=== PATIENT | female | born 1935 | race Caucasian/White ===

== ENCOUNTER → 2017-01-18 | Outpatient (CLI) | payer MEDICARE ==
--- NOTE | 2017-01-18 22:58 | PN ---
This patient is 81 years old. She was diagnosed having severe symptomatic obstructive sleep apnea with an AHI of 85.8. The patient suffers from congestive heart failure, hypertension, hyperlipidemia, hypothyroidism and chronic atrial fibrillation. I am seeing her today in followup. She is using her CPAP every night without any major difficulties. Her only problem is some leaks around her Simplus full-face mask. Her leak factor is around 71 liters per minute. Her AHI on treatment is down to 2. Her CPAP use for more than 4 hours is approximately 60% of the time. I noted that the patient has not connected her tubing in a proper fashion, and this tubing extends between the mask and the CPAP machine. Appropriate instructions were given. Furthermore, I educated her on the proper use of the full-face mask. She had some difficulties utilizing the Simplus full-face mask, and this was replaced with an AirFit F10 full-face mask. Clinically she is doing well. She is waking up much more alert and awake during the day. Despite the ongoing leaks, the patient has no major hypersomnia or sleepiness. Her [place] Switch score is 12. BP is 140/89, pulse 100, respirations 18, temperature 97.5. Weight is 197. GENERAL APPEARANCE: Calm, comfortable. HEENT: Short neck. Crowding of posterior pharynx. No goiter or neck masses. LUNGS: Clear to auscultation. HEART: Sounds are regular rate and rhythm. Normal S1, S2. No S3. No S4. No murmurs. ABDOMEN: Soft, nontender. No organomegaly. EXTREMITIES: No edema. No cyanosis or clubbing. IMPRESSION: 1. Symptomatic obstructive sleep apnea with an AHI of 85.8. The patient's treatment seems to be successful, although further adjustments need to be done on her mask to improve further compliance. 2. Congestive heart failure. 3. Hypertension. 4. Hyperlipidemia. 5. Hypothyroidism. 6. Chronic atrial fibrillation. PLAN: 1. Provide the patient an AirFit F10 full-face mask. 2. Educate the patient on the proper use and placement of her mask and proper instillation of the tubing and the connection to the CPAP machine. 3. Her treatment seems to be successful for now. Will continue to follow.
== END | disposition home or self-care (01) ==
LOC: SLEEP 15:21
PROVIDERS: ATTEND Internal Medicine Critical Care Medicine
DX: G47.33 Obstructive sleep apnea (adult) (pediatric) (principal); Z99.89 Dependence on other enabling machines and devices

== ENCOUNTER 2022-03-12 16:25 | Inpatient (IN) | payer MEDICARE ==
[2022-03-12 16:51] LABS: Anisocytosis Slight; Basophils # (A) 0.1 k/uL (0-0.2); Basophils % (A) 0 %; Eosinophils # (A) 0.2 k/uL (0-0.7); Eosinophils % (A) 1 %; HCT 32.5 % (34.0-46.0); HGB 9.9 gm/dL (11.4-16.0); Hypochromasia Marked; Lymphocytes # (A) 0.3 k/uL (1.0-4.8); Lymphocytes % (A) 1 %; MCH 28.2 pg (25.0-35.0); MCHC 30.6 g/dL (31.0-37.0); MCV 92.1 fL (80.0-100.0); Mean Platelet Volume 7.8; Monocytes # (A) 0.5 k/uL (0-1.0); Monocytes % (A) 2 %; Neutrophils # (A) 24.7 k/uL (1.3-7.7); Neutrophils % (A) 95 %; Platelet Count 367 k/uL (150-450); Poikilocytosis Moderate; RBC 3.53 m/uL (3.80-5.40); RDW 18.5 % (11.5-15.5); WBC 25.9 k/uL (3.8-10.6)
[2022-03-12] MEDS ORDERED: SODIUM CHLORIDE 0.9% 500 ML 500 ML IV STA (17:00)
[2022-03-12] MEDS ORDERED: DILTIAZEM 5 MG/ML 5 ML VIAL IVP STA (17:00)
[2022-03-12] MEDS: DILTIAZEM 125 MG in SODIUM CHLORIDE 0.9% 100 ML IV SCH (17:30)
[2022-03-12 17:37] LABS: Albumin 2.3 g/dL (3.5-5.0); Calcium 7.6 mg/dL (8.4-10.2); Magnesium 1.6 mg/dL (1.6-2.3); Potassium 3.8 mmol/L (3.5-5.1); Total Bilirubin 0.8 mg/dL (0.2-1.3); Total Protein 4.9 g/dL (6.3-8.2)
[2022-03-12 17:38] LABS: INR 1.1 (<1.2)
[2022-03-12 17:39] LABS: Appearance,Urine Clear (Clear); Bacteria,Urine Many /hpf; Bilirubin,Urine Negative (Negative); Blood,Urine Negative (Negative); Color,Urine Yellow; Glucose,Urine (UA) Negative (Negative); Hyaline Casts,Urine 1 /lpf (0-2); Ketones,Urine Negative (Negative); Leukocyte Esterase,Urine Moderate (Negative); Nitrite,Urine Negative (Negative); Protein,Urine Negative (Negative); RBC,Urine 1 /hpf (0-5); Specific Gravity,Urine 1.015 (1.001-1.035); Urobilinogen,Urine <2.0 mg/dL (<2.0); WBC,Urine 30 /hpf (0-5)
[2022-03-12 17:39] LABS: Prothrombin Time 11.5 sec (9.0-12.0)
--- NOTE | 2022-03-12 17:46 | XR ---
EXAMINATION TYPE: XR chest 2V DATE OF EXAM: 03/12/2022 COMPARISON: 12/07/2021 HISTORY: Short of breath TECHNIQUE: 2 views FINDINGS: Heart is enlarged. There is patchy pulmonary airspace edema. There are chest leads. There i s mild blunting of the costophrenic angles. IMPRESSION: Patchy pulmonary edema with pleural effusions. This is consistent with combined heart rosalio lure and pneumonia. Right middle lobe consolidation is new compared to the old exam. Heart failure ap pears the same or slightly improved.
--- NOTE | 2022-03-12 18:25 | ED ---
Arrhythmia/Palpitations HPI - General Chief Complaint: Arrhythmia/Palpitations Stated Complaint: AFIB w/ RVR Time Seen by Provider: 03/12/22 16:39 Source: patient, RN notes reviewed Mode of arrival: ambulatory Limitations: no limitations - History of Present Illness Initial Comments: 86-year-old female who presents by EMS with complaints of feeling generally weak and she was noted at her facility be in atrial fibrillation with a rapid ventricular response. She denies any chest pain at this time she is a poor historian. She did recently have a biliary drainage procedure. MD Complaint: rapid heart beat, palpitations - Related Data Home Medications Medication Instructions Recorded Confirmed Apixaban [Eliquis] 5 mg PO BID 12/04/21 03/12/22 Atorvastatin Calcium [Lipitor] 80 mg PO HS 12/04/21 03/12/22 Brimonidine Tartrate [Alphagan P 1 drop BOTH EYES Q12H 12/04/21 03/12/22 0.2% Ophth Soln] Digoxin [Digitek] 125 mcg PO MOWEFR 12/04/21 03/12/22 Levothyroxine Sodium [Synthroid] 150 mcg PO DAILY 12/04/21 03/12/22 Acetaminophen Tab [Tylenol Tab] 500 mg PO Q6HR PRN 03/12/22 03/12/22 Acetaminophen [Tylenol] 650 mg PO Q4H PRN MDD 3 GM 03/12/22 03/12/22 Glucose Gel 40% 1 applicator PO DAILY PRN 03/12/22 03/12/22 Hydrocodone/Acetaminophen 5-300 Mg 1 tab PO Q48H PRN 03/12/22 03/12/22 INSULIN LISPRO (HumaLOG) [humaLOG] See Protocol SQ ACHS 03/12/22 03/12/22 Metoprolol Tartrate [Lopressor] 50 mg PO TID 03/12/22 03/12/22 Midodrine HCl [ProAmatine] 10 mg PO TID PRN 03/12/22 03/12/22 Nephro-Gloria 0.8mg Tab 1 tab PO DAILY 03/12/22 03/12/22 Patiromer Calcium Sorbitex 1 packet PO DAILY 03/12/22 03/12/22 [Veltassa] Torsemide [Demadex] 10 mg PO DAILY 03/12/22 03/12/22 bisacodyL 10 mg RECTAL DAILY PRN 03/12/22 03/12/22 polyethylene glycoL 3350 [Miralax] 17 gm PO DAILY 03/12/22 03/12/22 Allergies Allergy/AdvReac Type Severity Reaction Status Date / Time No Known Allergies Allergy Verified 03/12/22 18:17 Review of Systems ROS Statement: Those systems with pertinent positive or pertinent negative responses have been documented in the HPI. ROS Other: All systems not noted in ROS Statement are negative. Past Medical History Past Medical History: Atrial Fibrillation, Diabetes Mellitus, Hypertension, Pn eumonia, Renal Disease, Thyroid Disorder History of Any Multi-Drug Resistant Organisms: None Reported Past Surgical History: Cholecystectomy Smoking Status: Former smoker Past Alcohol Use History: None Reported Past Drug Use History: None Reported General Exam - General Exam Comments Initial Comments: This is a well-developed well-nourished awake alert female with a poor historian Limitations: no limitations General appearance: alert, in no apparent distress Head exam: Present: atraumatic, normocephalic, normal inspection Eye exam: Present: normal appearance, PERRL, EOMI. Absent: scleral icterus, co njunctival injection, periorbital swelling ENT exam: Present: mucous membranes dry Neck exam: Present: normal inspection, full ROM, other (No surgical rigidity or bruits). Absent: tenderness, meningismus, lymphadenopathy Respiratory exam: Present: rhonchi, decreased breath sounds. Absent: respiratory distress, wheezes, rales, stridor Cardiovascular Exam: Present: tachycardia, irregular rhythm. Absent: systolic murmur, diastolic murmur, rubs, gallop, clicks GI/Abdominal exam: Present: soft, normal bowel sounds, other (Biliary drainage tube in place it does appear to be functional). Absent: distended, tenderness, guarding, rebound, rigid, bruit, pulsatile mass Extremities exam: Present: normal inspection, full ROM, normal capillary refill. Absent: tenderness, pedal edema, joint swelling, calf tenderness Back exam: Present: normal inspection Neurological exam: Present: alert, oriented X3, CN II-XII intact Psychiatric exam: Present: normal affect, normal mood Skin exam: Present: warm, dry, intact, normal color. Absent: rash Course Vital Signs 03/12/22 03/12/22 03/12/22 16:26 18:38 19:53 Temperature 97.5 F L Pulse Rate 138 H 130 H 114 H Respiratory 20 18 26 H Rate Blood Pressure 115/70 102/65 133/66 O2 Sat by Pulse 95 96 97 Oximetry - Reevaluation(s) Reevaluation #1: 03/12/22 20:51 Tariq require IV Lasix also did require increased Cardizem. Medical Decision Making - Medical Decision Making Patient does have evidence of A. fib RVR along with CHF and pneumonia. She does have elevated white blood cell count left shift no fever noted this time. Patient will be admitted. - Lab Data Result diagrams: 03/12/22 16:43 03/12/22 17:14 Lab Results 03/12/22 03/12/22 03/12/22 Range/Units 16:43 16:43 17:14 WBC 25.9 H (3.8-10.6) k/uL RBC 3.53 L (3.80-5.40) m/uL Hgb 9.9 L (11.4-16.0) gm/dL Hct 32.5 L (34.0-46.0) % MCV 92.1 (80.0-100.0) fL MCH 28.2 (25.0-35.0) pg MCHC 30.6 L (31.0-37.0) g/dL RDW 18.5 H (11.5-15.5) % Plt Count 367 (150-450) k/uL MPV 7.8 Neutrophils % 95 % Lymphocytes % 1 % Monocytes % 2 % Eosinophils % 1 % Basophils % 0 % Neutrophils # 24.7 H (1.3-7.7) k/uL Lymphocytes # 0.3 L (1.0-4.8) k/uL Monocytes # 0.5 (0-1.0) k/uL Eosinophils # 0.2 (0-0.7) k/uL Basophils # 0.1 (0-0.2) k/uL Hypochromasia Marked Poikilocytosis Moderate Anisocytosis Slight PT 11.5 (9.0-12.0) sec INR 1.1 (<1.2) APTT 28.0 (22.0-30.0) sec D-Dimer 1.50 H (<0.60) mg/L FEU Sodium 135 L (137-145) mmol/L Potassium 3.8 (3.5-5.1) mmol/L Chloride 101 (98-107) mmol/L Carbon Dioxide 27 (22-30) mmol/L Anion Gap 7 mmol/L BUN 45 H (7-17) mg/dL Creatinine 0.94 (0.52-1.04) mg/dL Est GFR (CKD-EPI)AfAm 64 (>60 ml/min/1.73 sqM) Est GFR (CKD-EPI)NonAf 56 (>60 ml/min/1.73 sqM) Glucose 141 H (74-99) mg/dL Plasma Lactic Acid Joey (0.7-2.0) mmol/L Calcium 7.6 L (8.4-10.2) mg/dL Magnesium 1.6 (1.6-2.3) mg/dL Total Bilirubin 0.8 (0.2-1.3) mg/dL AST 24 (14-36) U/L ALT 12 (4-34) U/L Alkaline Phosphatase 106 (38-126) U/L Troponin I (0.000-0.034) ng/mL NT-Pro-B Natriuret Pep pg/mL Total Protein 4.9 L (6.3-8.2) g/dL Albumin 2.3 L (3.5-5.0) g/dL TSH Cancelled Urine Color Urine Appearance (Clear) Urine pH (5.0-8.0) Ur Specific [place] (1.001-1.035) Urine Protein (Negative) Urine Glucose (UA) (Negative) Urine Ketones (Negative) Urine Blood (Negative) Urine Nitrite (Negative) Urine Bilirubin (Negative) Urine Urobilinogen (<2.0) mg/dL Ur Leukocyte Esterase (Negative) Urine RBC (0-5) /hpf Urine WBC (0-5) /hpf Urine Bacteria (None) /hpf Hyaline Casts (0-2) /lpf 03/12/22 03/12/22 03/12/22 Range/Units 17:14 17:14 17:18 WBC (3.8-10.6) k/uL RBC (3.80-5.40) m/uL Hgb (11.4-16.0) gm/dL Hct (34.0-46.0) % MCV (80.0-100.0) fL MCH (25.0-35.0) pg MCHC (31.0-37.0) g/dL RDW (11.5-15.5) % Plt Count (150-450) k/uL MPV Neutrophils % % Lymphocytes % % Monocytes % % Eosinophils % % Basophils % % Neutrophils # (1.3-7.7) k/uL Lymphocytes # (1.0-4.8) k/uL Monocytes # (0-1.0) k/uL Eosinophils # (0-0.7) k/uL Basophils # (0-0.2) k/uL Hypochromasia Poikilocytosis Anisocytosis PT (9.0-12.0) sec INR (<1.2) APTT (22.0-30.0) sec D-Dimer (<0.60) mg/L FEU Sodium (137-145) mmol/L Potassium (3.5-5.1) mmol/L Chloride (98-107) mmol/L Carbon Dioxide (22-30) mmol/L Anion Gap mmol/L BUN (7-17) mg/dL Creatinine (0.52-1.04) mg/dL Est GFR (CKD-EPI)AfAm (>60 ml/min/1.73 sqM) Est GFR (CKD-EPI)NonAf (>60 ml/min/1.73 sqM) Glucose (74-99) mg/dL Plasma Lactic Acid Joey (0.7-2.0) mmol/L Calcium (8.4-10.2) mg/dL Magnesium (1.6-2.3) mg/dL Total Bilirubin (0.2-1.3) mg/dL AST (14-36) U/L ALT (4-34) U/L Alkaline Phosphatase (38-126) U/L Troponin I 0.064 H* (0.000-0.034) ng/mL NT-Pro-B Natriuret Pep 42691 pg/mL Total Protein (6.3-8.2) g/dL Albumin (3.5-5.0) g/dL TSH Urine Color Yellow Urine Appearance Clear (Clear) Urine pH 5.0 (5.0-8.0) Ur Specific [place] 1.015 (1.001-1.035) Urine Protein Negative (Negative) Urine Glucose (UA) Negative (Negative) Urine Ketones Negative (Negative) Urine Blood Negative (Negative) Urine Nitrite Negative (Negative) Urine Bilirubin Negative (Negative) Urine Urobilinogen <2.0 (<2.0) mg/dL Ur Leukocyte Esterase Moderate H (Negative) Urine RBC 1 (0-5) /hpf Urine WBC 30 H (0-5) /hpf Urine Bacteria Many H (None) /hpf Hyaline Casts 1 (0-2) /lpf 03/12/22 03/12/22 Range/Units 17:26 17:48 WBC (3.8-10.6) k/uL RBC (3.80-5.40) m/uL Hgb (11.4-16.0) gm/dL Hct (34.0-46.0) % MCV (80.0-100.0) fL MCH (25.0-35.0) pg MCHC (31.0-37.0) g/dL RDW (11.5-15.5) % Plt Count (150-450) k/uL MPV Neutrophils % % Lymphocytes % % Monocytes % % Eosinophils % % Basophils % % Neutrophils # (1.3-7.7) k/uL Lymphocytes # (1.0-4.8) k/uL Monocytes # (0-1.0) k/uL Eosinophils # (0-0.7) k/uL Basophils # (0-0.2) k/uL Hypochromasia Poikilocytosis Anisocytosis PT (9.0-12.0) sec INR (<1.2) APTT (22.0-30.0) sec D-Dimer (<0.60) mg/L FEU Sodium (137-145) mmol/L Potassium (3.5-5.1) mmol/L Chloride (98-107) mmol/L Carbon Dioxide (22-30) mmol/L Anion Gap mmol/L BUN (7-17) mg/dL Creatinine (0.52-1.04) mg/dL Est GFR (CKD-EPI)AfAm (>60 ml/min/1.73 sqM) Est GFR (CKD-EPI)NonAf (>60 ml/min/1.73 sqM) Glucose (74-99) mg/dL Plasma Lactic Acid Joey 1.1 (0.7-2.0) mmol/L Calcium (8.4-10.2) mg/dL Magnesium (1.6-2.3) mg/dL Total Bilirubin (0.2-1.3) mg/dL AST (14-36) U/L ALT (4-34) U/L Alkaline Phosphatase (38-126) U/L Troponin I (0.000-0.034) ng/mL NT-Pro-B Natriuret Pep pg/mL Total Protein (6.3-8.2) g/dL Albumin (3.5-5.0) g/dL TSH 1.180 Urine Color Urine Appearance (Clear) Urine pH (5.0-8.0) Ur Specific [place] (1.001-1.035) Urine Protein (Negative) Urine Glucose (UA) (Negative) Urine Ketones (Negative) Urine Blood (Negative) Urine Nitrite (Negative) Urine Bilirubin (Negative) Urine Urobilinogen (<2.0) mg/dL Ur Leukocyte Esterase (Negative) Urine RBC (0-5) /hpf Urine WBC (0-5) /hpf Urine Bacteria (None) /hpf Hyaline Casts (0-2) /lpf - EKG Data -: EKG Interpreted by Vt EKG Comments: Atrial fibrillation with a rapid ventricular response rate 133 QRS duration 89 QTC to 75/[address] configuration - Radiology Data Radiology results: report reviewed (Imaging reviewed evidence of just of changes as well as right sided pneumonia.), image reviewed Critical Care Time Critical Care Time: Yes Total Critical Care Time: 39 Critical Care Time: Critical care time includes initial presentation with history physical labs x- rays multiple reevaluation the patient to responsive therapy review of old charting was available discussed with the patient regarding findings discussed with the main physician admission orders and documentation of the above Disposition Clinical Impression: Atrial fibrillation, Pneumonia, Congestive heart failure, Leukocytosis, Elevated troponin, Anemia Disposition: ADMITTED IP TO THIS HOSP Condition: Fair Referrals: Casey Crocker MD [Primary Care Provider] - 1-2 days Decision Date: 03/12/22 Decision Time: 20:55
[2022-03-12] MEDS ORDERED: cefTRIAXone IN SWFI 1,000 MG/10 ML SYRINGE IVP STA (18:54)
[2022-03-12] MEDS ORDERED: FUROSEMIDE 10 MG/ML 4 ML VIAL IV STA (19:39)
--- NOTE | 2022-03-12 19:56 | CT ---
EXAMINATION TYPE: CT angio chest DATE OF EXAM: 03/12/2022 COMPARISON: None HISTORY: SOB elevated D-dimer CT DLP: 424.8 mGycm Automated exposure control for dose reduction was used. CONTRAST: Performed with IV Contrast, patient injected with 150 mL of Isovue 370. There are Three-D postprocessed images. There is a mild to moderate right pleural effusion. Heart is enlarged. No pericardial effusion. There is airspace infiltrate and atelectasis in the right lower lobe. There is some mild patchy reticular nodular infiltrate in the left lung. There is similar infiltrate in the right upper lobe. There is some rounded consolidation in the lateral aspect right mid lung field. Thoracic aorta is atheromatous. No dissection. The ascending aorta measures 3.3 cm. No aneurysm. No e vidence of filling defect in the pulmonary arteries. The thoracic spine is intact. No compression fra cture. Sternum is intact. There is contrast reflux into the inferior vena cava. IMPRESSION: No evidence of pulmonary embolism. Pulmonary infiltrates and right pleural effusion and cardiomegaly consistent with chronic congestive heart failure. Acute pneumonia is also likely. This is seen in the lateral posterior right mid lung field.
[2022-03-12] MEDS ORDERED: GLUCOSE PO PRN (20:57)
[2022-03-12] MEDS ORDERED: APPLICATOR PO PRN (20:57)
[2022-03-12 21:53] LABS: Glucose,Whole Blood 126 mg/dL (75-99)
[2022-03-12] MEDS ORDERED: MIDODRINE 5 MG TAB PO PRN (22:00)
[2022-03-12] MEDS: INSULIN ASPART (NovoLOG) 100 UNIT/ML VIAL SQ SCH (22:16)
[2022-03-12] MEDS: APIXABAN 5 MG TAB PO SCH (22:42)
[2022-03-12] MEDS: ACETAMINOPHEN TAB 325 MG TAB PO PRN (22:42)
[2022-03-12] MEDS: METOPROLOL TARTRATE 50 MG TAB PO SCH (22:42)
[2022-03-12] MEDS: FUROSEMIDE 10 MG/ML 4 ML VIAL IV SCH (22:43)
[2022-03-12] MEDS: DIGOXIN 125 MCG TAB PO SCH (22:43)
[2022-03-12] MEDS: SODIUM CHLORIDE 0.9% 1,000 ML IV SCH (22:43)
[2022-03-12] MEDS: BRIMONIDINE TARTRATE 0.2% DROPS 5 ML BTL BOTH EYES SCH (22:43)
[2022-03-12] MEDS: ATORVASTATIN 80 MG TAB PO SCH (22:43)
[2022-03-13] MEDS ORDERED: ACETAMINOPHEN TAB 500 MG TAB PO PRN
[2022-03-13 05:59] LABS: Glucose,Whole Blood 125 mg/dL (75-99)
[2022-03-13] MEDS: LEVOTHYROXINE 75 MCG TAB PO SCH (06:11)
[2022-03-13] MEDS: INSULIN ASPART (NovoLOG) 100 UNIT/ML VIAL SQ SCH ×4 (06:11→20:42)
[2022-03-13] MEDS: polyethylene glycoL 3350 17 GM POWD.PACK PO SCH (08:21)
[2022-03-13] MEDS: FOLIC ACID-VIT B COMPLEX-VIT C 1 CAP PO SCH (08:22)
[2022-03-13] MEDS: METOPROLOL TARTRATE 50 MG TAB PO SCH ×3 (08:22→20:42)
[2022-03-13] MEDS: FUROSEMIDE 10 MG/ML 4 ML VIAL IV SCH ×2 (08:22→20:42)
[2022-03-13] MEDS: APIXABAN 5 MG TAB PO SCH ×2 (08:22→20:41)
[2022-03-13] MEDS: TORSEMIDE 20 MG TAB PO SCH (08:22)
[2022-03-13] MEDS: ACETAMINOPHEN TAB 325 MG TAB PO PRN (08:22)
[2022-03-13] MEDS: NON FORMULARY DRUG (Patiromer Calcium Sorbitex [Veltassa] 8.4 GM Packet) PO SCH (08:37)
[2022-03-13] MEDS ORDERED: bisacodyL 10 MG SUPP RECTAL PRN (09:00)
[2022-03-13] MEDS ORDERED: HYDROcodone/APAP 5-325MG 1 EACH TAB PO PRN (09:00)
[2022-03-13] MEDS ORDERED: VANCOMYCIN 1,000 MG in SODIUM CHLORIDE 0.9% 250 ML IVPB STA (09:37)
--- NOTE | 2022-03-13 10:23 | P.HPIM ---
History of Present Illness H&P Date: 03/13/22 HISTORY OF PRESENT ILLNESS 86-year-old female one of Dr. kimmie oro patient was known to have history of diabetes, hypertension, A. fib, CHF, PAD and chronic kidney disease who was hospitalized at [facility] from February 13 till March 06 for sepsis with acute ascending cholangitis with acute renal failure requiring hemodialysis which patient had dialysis catheter in the right IJ was dialyzed on regular basis for several days in [place]. Also was on antibiotics to treat UTI along with ascending cholangitis and sepsis according to family. Patient apparently h as been declining for the last few month was transferred from [place] to [facility] for rehab and continued care of care. Patient found to have severe weakness tiredness with A. fib with RVR and worsening dyspnea and shortness of breath. EMS were called and patient was transferred to [facility] was seen at the emergency department with A. fib with RVR pulse rate was running in the 140s to 150. Patient was started on Cardizem drip a few extra problem was found at this time including on the chest x-ray and CTA found to have infiltrate in the right side with pleural effusion, troponin was elevated and patient was diagnosed with non-ST MT possible type II. Consult cardiology for her care also patient found to have white blood cell of 25,900 with hemoglobin of 9.9, she was not in any kidney failure at this time her urine was very positive for UTI and sepsis. Patient also found to have decubitus ulcer left buttocks has 3 time 3 inches stage III decubitus the right side had a curve stage II very large 1 almost 5 inches time to cross with a small area of the right ankle as well. Culture was done at this point patient was giving 1 dose of Rocephin initially we will do vancomycin admit patient to the hospital. Had long discussion with the granddaughter for some information patient apparently had transcutaneous biliary catheter done for obstructive jaundice at the time with gallbladder with ascending cholangitis could not be treated at [place] with an infection this biliary catheter still draining bile at this time. With the family aware of patient's current condition specially with the pneumonia, sepsis, cardiomyopathy, family decided to have DO NOT RESUSCITATE CODE STATUS at this point. They're agreeable for treatment but to do any aggressive resuscitation. REVIEW OF SYSTEMS Constitutional: No fever, no chills, no night sweats. No weight change. Positive fatigue and tiredness with lethargy with daytime sleeping. EENT: No headache. No blurred vision or double vision, no loss of vision. No loss of Hearing, no ringing in the ears, no dizziness. No nasal drainage or congestion. No epistaxis. No sore throat. Lungs: Mild shortness of breath cough wheezes. Cardiovascular: Positive dyspnea with PND orthopnea palpitations and mild lightheadedness and A. fib with RVR with CHF. Abdominal: Positive abdominal distention with slight discomfort transcutaneous biliary catheter at this point. : Positive indwelling catheter with irritation and discomfort. Musculoskeletal: No myalgias. No muscle weakness, no gait dysfunction, no frequent falls. No back pain. No neck pain. Integumentary: Positive wound on the buttocks area bilaterally worse on the left than the right side will use regular dressing and special mattress. Neurologic: No aphasia. No facial droop. No change in mentation. No head injury. No headache. No paralysis. No paresthesia. Psychiatric: No depression. No anxiety. No mood swings. Endocrine: No abnormal blood sugars. No weight change. No excessive sweating or thirst. No cold intolerance. SOCIAL HISTORY She quit smoking 30 years ago used to smoke half pack a day for 10 years, no code use, she is and has been cared by family lately has been in [facility]. FAMILY HISTORY Patient had 2 children one of them committed suicide another one had schizoaffective disorders. Patient was only child for her parents, her mother age 79 from breast cancer and father from esophageal cancer at age 79. PHYSICAL EXAMINATION Gen: This is elderly does not look in any respiratory distress. HEENT: Head is atraumatic, normocephalic. Pupils equal, round. Sclerae is anicteric. NECK: Supple. No JVD. No lymphadenopathy. No thyromegaly. LUNGS: Decrease breath some other acute fine rhonchi positive crackles in the bases with decreased breath sounds in the right side [facility] through. HEART: Irregular rhythm and rate S1-S2 positive S3 positive systolic murmur in the apex. ABDOMEN: Soft positive bowel sounds positive transcutaneous catheter in the right side biliary catheter, slight discomfort lower abdominal region area mostly suprapubic. EXTREMITIES: Right leg had a small ulcerated area one time 1 cm only stage II with slight decrease pulse in the dorsalis pedis bilaterally with trace edema worse on the right than the left side Back: She had decubitus ulcer on the left side measure 3 time 3 inches stage III, right side had curve with half horseshoe shape the middle is more superficial but the edges are deeper with the area almost 53 inches. NEUROLOGICAL: Patient is awake, alert and oriented x3. Cranial nerves 2 through 12 are grossly intact. ASSESSMENT AND PLAN 1. Severe dyspnea and shortness of breath: Most likely from A. fib with cardiomyopathy continue oxygen continue current management patient also has pneumonia and pleural effusion. 2 A. fib with RVR: Patient has been on Eliquis was on digoxin and metoprolol resume medication will continue Cardizem drip we'll consult cardiology. 3 bilateral pneumonia especially the right side with significant pleural effusion: Patient was started on antibiotic 1 g of Rocephin was giving waiting for final infectious disease for both decubitus and pneumonia for better management. 4 right-sided pleural effusion: We'll consult pulmonary patient might have to have thoracentesis eventually if not improved medical management. 5 sepsis and UTI: Urine and urine culture was done we'll consult infectious disease patient was giving 1 g of Rocephin started vancomycin for now continue empiric treatment ~cultures back. 6 elevated troponin with non-ST MT possible2: Echocardiogram will be order continue medical management at this point. 7 severe decubitus ulcer: Infectious disease consultation and wound care will be done continue topical continue softer mattress at this point can continue IV antibiotics awaiting for culture as well. 8 severe ascending cholangitis with gallstone post transcutaneous biliary tube, continue current care at this point. 9 cardiopathy: Most likely ischemic and A. fib cardiomyopathy patient blood pressure was quite bit low could not tolerate medication about well and was taking ARB and ATIYA inhibitor which can be considered at this point. 10 acute kidney injury with recent end-stage renal disease requiring hemodialysis at [place] for almost 3 weeks, kidney function is back to normal this point continue to watch her urine output carefully. 11 type 2 diabetes: Patient will be continue on Accu-Chek with sliding scales coverage. 12 hypothyroidism: Continue levothyroxine 150 g daily. 13 hyperlipidemia: Continue patient on atorvastatin 80 mg daily. 14 GI prophylaxis: Patient will be on pantoprazole. 15 DVT prophylaxis: Patient remain on anticoagulation. CODE STATUS: DO NOT RESUSCITATE. Prognosis: Very guarded family was informed with the high comorbidity and mortality patient has. Admit patient to the inpatient service for more than 2 night stay. Patient will be admitted to the hospital for a minimum of 2 night stay. Past Medical History Past Medical History: Atrial Fibrillation, Diabetes Mellitus, Hypertension, Pneumonia, Renal Disease, Thyroid Disorder History of Any Multi-Drug Resistant Organisms: None Reported Past Surgical History: Cholecystectomy Smoking Status: Former smoker Past Alcohol Use History: None Reported Past Drug Use History: None Reported - Past Family History Father History Unknown: Yes Mother History Unknown: Yes Medications and Allergies Home Medications Medication Instructions Recorded Confirmed Type Apixaban [Eliquis] 5 mg PO BID 12/04/21 03/12/22 History Atorvastatin Calcium [Lipitor] 80 mg PO HS 12/04/21 03/12/22 History Brimonidine Tartrate [Alphagan P 1 drop BOTH EYES Q12H 12/04/21 03/12/22 History 0.2% Ophth Soln] Digoxin [Digitek] 125 mcg PO MOWEFR 12/04/21 03/12/22 History Levothyroxine Sodium [Synthroid] 150 mcg PO DAILY 12/04/21 03/12/22 History Acetaminophen Tab [Tylenol Tab] 500 mg PO Q6HR PRN 03/12/22 03/12/22 History Acetaminophen [Tylenol] 650 mg PO Q4H PRN MDD 3 GM 03/12/22 03/12/22 History Glucose Gel 40% 1 applicator PO DAILY PRN 03/12/22 03/12/22 History Hydrocodone/Acetaminophen 5-300 Mg 1 tab PO Q48H PRN 03/12/22 03/12/22 History INSULIN LISPRO (HumaLOG) [humaLOG] See Protocol SQ ACHS 03/12/22 03/12/22 History Metoprolol Tartrate [Lopressor] 50 mg PO TID 03/12/22 03/12/22 History Midodrine HCl [ProAmatine] 10 mg PO TID PRN 03/12/22 03/12/22 History Nephro-Gloria 0.8mg Tab 1 tab PO DAILY 03/12/22 03/12/22 History Patiromer Calcium Sorbitex 1 packet PO DAILY 03/12/22 03/12/22 History [Veltassa] Torsemide [Demadex] 10 mg PO DAILY 03/12/22 03/12/22 History bisacodyL 10 mg RECTAL DAILY PRN 03/12/22 03/12/22 History polyethylene glycoL 3350 [Miralax] 17 gm PO DAILY 03/12/22 03/12/22 History Allergies Allergy/AdvReac Type Severity Reaction Status Date / Time No Known Allergies Allergy Verified 03/12/22 18:17 Physical Exam Vitals: Vital Signs Temp Pulse Pulse Resp BP BP Pulse Ox 03/13/22 08:21 98.0 F 122 H 18 109/64 95 03/13/22 04:25 97.6 F 99 17 103/64 93 L 03/12/22 23:00 98 F 117 H 19 97/88 95 03/12/22 21:54 113 H 26 H 113/84 92 L 03/12/22 21:50 97 F L 120 H 18 115/74 95 03/12/22 20:52 106 H 26 H 119/61 94 L 03/12/22 19:53 114 H 26 H 133/66 97 03/12/22 18:38 130 H 18 102/65 96 03/12/22 16:26 97.5 F L 138 H 20 115/70 95 Intake and Output 03/12/22 03/13/22 03/13/22 22:59 06:59 14:59 Intake Total 16.333 Output Total 130 Balance 16.333 -130 Intake: Intake, IV Titration 16.333 Amount Diltiazem 125 mg In 16.333 Sodium Chloride 0.9% 100 ml @ 5 MG/HR 5 mls/hr IV .Q24H [facility] Rx#:[id number] Output: Urine 130 Other: Voiding Method Indwelling Catheter Indwelling Catheter Weight 79.1 kg Results CBC & Chem 7: 03/12/22 16:43 03/12/22 17:14 Labs: Abnormal Lab Results - Last 24 Hours (Table) 03/12/22 03/12/22 03/12/22 Range/Units 16:43 16:43 17:14 WBC 25.9 H (3.8-10.6) k/uL RBC 3.53 L (3.80-5.40) m/uL Hgb 9.9 L (11.4-16.0) gm/dL Hct 32.5 L (34.0-46.0) % MCHC 30.6 L (31.0-37.0) g/dL RDW 18.5 H (11.5-15.5) % Neutrophils # 24.7 H (1.3-7.7) k/uL Lymphocytes # 0.3 L (1.0-4.8) k/uL D-Dimer 1.50 H (<0.60) mg/L FEU Sodium 135 L (137-145) mmol/L BUN 45 H (7-17) mg/dL Glucose 141 H (74-99) mg/dL POC Glucose (mg/dL) (75-99) mg/dL Calcium 7.6 L (8.4-10.2) mg/dL Troponin I (0.000-0.034) ng/mL Total Protein 4.9 L (6.3-8.2) g/dL Albumin 2.3 L (3.5-5.0) g/dL Ur Leukocyte Esterase (Negative) Urine WBC (0-5) /hpf Urine Bacteria (None) /hpf 03/12/22 03/12/22 03/12/22 Range/Units 17:14 17:14 20:46 WBC (3.8-10.6) k/uL RBC (3.80-5.40) m/uL Hgb (11.4-16.0) gm/dL Hct (34.0-46.0) % MCHC (31.0-37.0) g/dL RDW (11.5-15.5) % Neutrophils # (1.3-7.7) k/uL Lymphocytes # (1.0-4.8) k/uL D-Dimer (<0.60) mg/L FEU Sodium (137-145) mmol/L BUN (7-17) mg/dL Glucose (74-99) mg/dL POC Glucose (mg/dL) (75-99) mg/dL Calcium (8.4-10.2) mg/dL Troponin I 0.064 H* 0.071 H* (0.000-0.034) ng/mL Total Protein (6.3-8.2) g/dL Albumin (3.5-5.0) g/dL Ur Leukocyte Esterase Moderate H (Negative) Urine WBC 30 H (0-5) /hpf Urine Bacteria Many H (None) /hpf 03/12/22 03/13/22 03/13/22 Range/Units 21:51 00:10 05:53 WBC (3.8-10.6) k/uL RBC (3.80-5.40) m/uL Hgb (11.4-16.0) gm/dL Hct (34.0-46.0) % MCHC (31.0-37.0) g/dL RDW (11.5-15.5) % Neutrophils # (1.3-7.7) k/uL Lymphocytes # (1.0-4.8) k/uL D-Dimer (<0.60) mg/L FEU Sodium (137-145) mmol/L BUN (7-17) mg/dL Glucose (74-99) mg/dL POC Glucose (mg/dL) 126 H 125 H (75-99) mg/dL Calcium (8.4-10.2) mg/dL Troponin I 0.070 H* (0.000-0.034) ng/mL Total Protein (6.3-8.2) g/dL Albumin (3.5-5.0) g/dL Ur Leukocyte Esterase (Negative) Urine WBC (0-5) /hpf Urine Bacteria (None) /hpf Microbiology - Last 24 Hours (Table) 03/12/22 17:14 Urine Culture - Preliminary Urine,Voided Thrombosis Risk Factor Assmnt - Choose All That Apply Any of the Below Risk Factors Present?: Yes Each Factor Represents 1 point: Medical pt on bed rest, Obesity (BMI >25) Other Risk Factors: Yes Each Risk Factor Represents 3 Points: Age 75 years or older Other congenital or acquired thrombophilia - If yes, enter type in comment: No Thrombosis Risk Factor Assessment Total Risk Factor Score: 5 Thrombosis Risk Factor Assessment Level: High Risk
--- NOTE | 2022-03-13 10:52 | P.CRDCN ---
History of Present Illness Consult date: 03/13/22 History of present illness: Patient has a known history of atrial fibrillation, congestive heart failure, peripheral artery disease, hypertension, chronic kidney disease, and diabetes. Patient was at rehab and was found to have increased weakness and to be in atrial fibrillation with RVR accompanied with worsening dyspnea. Patient's pulse rate was 140-150. Her EKG shows atrial fibrillation with RVR. Patient was started on a Cardizem drip. She is on Eliquis for anticoagulation digoxin and Lopressor 50 mg 3 times a day. Her CT of the chest is negative for pulmonary embolism. Shows pulmonary infiltrates and rate pleural effusion and cardiomegaly a consistent with chronic congestive heart failure. Possible acute pneumonia is also likely. Troponins are 0.064, 0.071 and 0.07. Will obtain an echocardiogram to evaluate LV function. Will continue with IV Cardizem until better rate control is achieved and will transition to oral Review of Systems REVIEW OF SYSTEMS At the time of my exam: CONSTITUTIONAL: Denies fever or chills. EYES: Negative for vision changes ENT: Negative for hearing loss CARDIOVASCULAR: Denies chest pain, shortness of breath, diaphoresis, orthopnea, PND or palpitations. VASCULAR: Denies edema RESPIRATORY: Denies cough. GASTROINTESTINAL: Denies abdominal pain, diarrhea, constipation, nausea or vomiting. MUSCULOSKELETAL: Denies myalgias. NEUROLOGIC: Denies numbness, tingling, headache or weakness. ENDOCRINE: Denies fatigue, weight change, polydipsia or polyurina. GENITOURINARY: Denies burning, hematuria or urgency with micturation. HEMATOLOGIC: Denies history of anemia or bleeding. DERMATOLOGY: Denies rash or skin sores PSYCH: Negative for depression or hallucinations. Past Medical History Past Medical History: Atrial Fibrillation, Diabetes Mellitus, Hypertension, Pneumonia, Renal Disease, Thyroid Disorder History of Any Multi-Drug Resistant Organisms: None Reported Past Surgical History: Cholecystectomy Smoking Status: Former smoker Past Alcohol Use History: None Reported Past Drug Use History: None Reported - Past Family History Father History Unknown: Yes Mother History Unknown: Yes Medications and Allergies Home Medications Medication Instructions Recorded Confirmed Type Apixaban [Eliquis] 5 mg PO BID 12/04/21 03/12/22 History Atorvastatin Calcium [Lipitor] 80 mg PO HS 12/04/21 03/12/22 History Brimonidine Tartrate [Alphagan P 1 drop BOTH EYES Q12H 12/04/21 03/12/22 History 0.2% Ophth Soln] Digoxin [Digitek] 125 mcg PO MOWEFR 12/04/21 03/12/22 History Levothyroxine Sodium [Synthroid] 150 mcg PO DAILY 12/04/21 03/12/22 History Acetaminophen Tab [Tylenol Tab] 500 mg PO Q6HR PRN 03/12/22 03/12/22 History Acetaminophen [Tylenol] 650 mg PO Q4H PRN MDD 3 GM 03/12/22 03/12/22 History Glucose Gel 40% 1 applicator PO DAILY PRN 03/12/22 03/12/22 History Hydrocodone/Acetaminophen 5-300 Mg 1 tab PO Q48H PRN 03/12/22 03/12/22 History INSULIN LISPRO (HumaLOG) [humaLOG] See Protocol SQ ACHS 03/12/22 03/12/22 History Metoprolol Tartrate [Lopressor] 50 mg PO TID 03/12/22 03/12/22 History Midodrine HCl [ProAmatine] 10 mg PO TID PRN 03/12/22 03/12/22 History Nephro-Gloria 0.8mg Tab 1 tab PO DAILY 03/12/22 03/12/22 History Patiromer Calcium Sorbitex 1 packet PO DAILY 03/12/22 03/12/22 History [Veltassa] Torsemide [Demadex] 10 mg PO DAILY 03/12/22 03/12/22 History bisacodyL 10 mg RECTAL DAILY PRN 03/12/22 03/12/22 History polyethylene glycoL 3350 [Miralax] 17 gm PO DAILY 03/12/22 03/12/22 History Allergies Allergy/AdvReac Type Severity Reaction Status Date / Time No Known Allergies Allergy Verified 03/12/22 18:17 Physical Exam Vitals: Vital Signs Temp Pulse Pulse Resp BP BP Pulse Ox 03/13/22 08:21 98.0 F 122 H 18 109/64 95 03/13/22 04:25 97.6 F 99 17 103/64 93 L 03/12/22 23:00 98 F 117 H 19 97/88 95 03/12/22 21:54 113 H 26 H 113/84 92 L 03/12/22 21:50 97 F L 120 H 18 115/74 95 03/12/22 20:52 106 H 26 H 119/61 94 L 03/12/22 19:53 114 H 26 H 133/66 97 03/12/22 18:38 130 H 18 102/65 96 03/12/22 16:26 97.5 F L 138 H 20 115/70 95 Intake and Output 03/12/22 03/13/22 03/13/22 22:59 06:59 14:59 Intake Total 16.333 Output Total 130 Balance 16.333 -130 Intake: Intake, IV Titration 16.333 Amount Diltiazem 125 mg In 16.333 Sodium Chloride 0.9% 100 ml @ 5 MG/HR 5 mls/hr IV .Q24H [facility] Rx#:[id number] Output: Urine 130 Other: Voiding Method Indwelling Catheter Indwelling Catheter Indwelling Catheter Weight 79.1 kg General: The patient is awake and alert, in no distress, and does not appear acutely ill. Skin: Skin is warm and dry and no rashes or lesions are noted. Eye: Pupils are equal, round and reactive to light, extra-ocular movements are intact; there is normal conjunctiva bilaterally. Ears, nose, mouth and throat: There are moist mucous membranes and no oral lesions. Neck: The neck is supple, there is no tenderness or JVD. Cardiovascular: There is irregular regular rate and rhythm. No murmur, rub or gallop is appreciated. Respiratory: Lungs are clear to auscultation, respirations are non-labored, breath sounds are equal. Gastrointestinal: Soft, non-distended, non-tender abdomen without masses or organomegaly noted. There is no rebound or guarding present. Bowel sounds are unremarkable. Back: There is no tenderness to palpation in the midline. There is no obvious deformity. Musculoskeletal: Normal ROM, no tenderness, There is no pedal edema. There is no calf tenderness or swelling. Extremities: Mild bilateral pitting edema Vascular: Femoral pulse is normal. Posterior tibial pulses are normal .Dorsalis pedis is palpable. Neurological: CN II-XII intact. There are no obvious motor or sensory deficits. Speech is normal. Psychiatric: Cooperative, appropriate mood & affect, normal judgment Results 03/12/22 16:43 03/12/22 17:14 Cardiac Enzymes 03/12/22 03/12/22 03/12/22 Range/Units 17:14 17:14 20:46 AST 24 (14-36) U/L Troponin I 0.064 H* 0.071 H* (0.000-0.034) ng/mL 03/13/22 Range/Units 00:10 AST (14-36) U/L Troponin I 0.070 H* (0.000-0.034) ng/mL Coagulation 03/12/22 Range/Units 16:43 PT 11.5 (9.0-12.0) sec APTT 28.0 (22.0-30.0) sec CBC 03/12/22 Range/Units 16:43 WBC 25.9 H (3.8-10.6) k/uL RBC 3.53 L (3.80-5.40) m/uL Hgb 9.9 L (11.4-16.0) gm/dL Hct 32.5 L (34.0-46.0) % Plt Count 367 (150-450) k/uL Comprehensive Metabolic Panel 03/12/22 Range/Units 17:14 Sodium 135 L (137-145) mmol/L Potassium 3.8 (3.5-5.1) mmol/L Chloride 101 (98-107) mmol/L Carbon Dioxide 27 (22-30) mmol/L BUN 45 H (7-17) mg/dL Creatinine 0.94 (0.52-1.04) mg/dL Glucose 141 H (74-99) mg/dL Calcium 7.6 L (8.4-10.2) mg/dL AST 24 (14-36) U/L ALT 12 (4-34) U/L Alkaline Phosphatase 106 (38-126) U/L Total Protein 4.9 L (6.3-8.2) g/dL Albumin 2.3 L (3.5-5.0) g/dL Current Medications Generic Name Dose Route Start Last Admin Trade Name Freq PRN Reason Stop Dose Admin Acetaminophen 500 mg 03/13/22 00:00 Acetaminophen Tab 500 Mg Tab PO Q6HR PRN Pain Acetaminophen 650 mg 03/13/22 00:00 03/13/22 08:22 Acetaminophen Tab 325 Mg Tab PO 650 mg Q4H PRN Administration Pain or Fever > 100.5 Hydrocodone Bitart/Acetaminophen 1 each 03/13/22 09:00 Hydrocodone/Apap 5-325mg 1 Each Tab PO Q48H PRN Pain Apixaban 5 mg 03/12/22 21:00 03/13/22 08:22 Apixaban 5 Mg Tab PO 5 mg BID JACKIE Administration Protocol Atorvastatin Calcium 80 mg 03/12/22 21:00 03/12/22 22:43 Atorvastatin 80 Mg Tab PO 80 mg HS JACKIE Administration Bisacodyl 10 mg 03/13/22 09:00 03/13/22 08:23 Bisacodyl 10 Mg Supp RECTAL 10 mg DAILY PRN Administration Constipation Brimonidine Tartrate 1 drops 03/12/22 21:30 03/12/22 22:43 Brimonidine Tartrate 0.2% Drops 5 Ml Btl BOTH EYES 1 drops Q12H JACKIE Administration Digoxin 125 mcg 03/12/22 21:30 03/12/22 22:43 Digoxin 125 Mcg Tab PO 125 mcg MOWEFR JACKIE Administration Furosemide 40 mg 03/12/22 21:30 03/13/22 08:22 Furosemide 10 Mg/Ml 4 Ml Vial IV 40 mg Q12H JACKIE Administration Diltiazem HCl 125 mg/ Sodium 125 mls @ 5 mls/hr 03/12/22 17:00 03/12/22 20:46 Chloride IV 10 mg/hr .Q24H JACKIE 10 mls/hr Infusion 5 MG/HR Sodium Chloride 1,000 mls @ 20 mls/hr 03/12/22 21:00 03/12/22 22:43 Saline 0.9% IV 20 mls/hr .Q24H JACKIE Administration Vancomycin HCl 1,000 mg/ 250 mls @ 125 mls/hr 03/13/22 09:37 Sodium Chloride IVPB 03/13/22 11:36 ONCE STA Protocol Insulin Aspart 0 unit 03/12/22 21:00 03/13/22 06:11 Insulin Aspart (Novolog) 100 Unit/Ml Vial SQ Not Given ACHS JACKIE Protocol Levothyroxine Sodium 150 mcg 03/13/22 06:30 03/13/22 06:11 Levothyroxine 75 Mcg Tab PO 150 mcg DAILY@0630 JACKIE Administration Metoprolol Tartrate 50 mg 03/12/22 22:00 03/13/22 08:22 Metoprolol Tartrate 50 Mg Tab PO 50 mg TID JACKIE Administration Midodrine 10 mg 03/12/22 22:00 Midodrine 5 Mg Tab PO TID PRN hold for SP 120> Multivit/Ca Carb/B Cmplx/FA/Prenat 1 each 03/13/22 09:00 03/13/22 08:22 Folic Acid-Vit B Complex-Vit C 1 Cap PO 1 each DAILY JACKIE Administration Non-Formulary Medication 1 packet 03/13/22 09:00 03/13/22 08:37 Patiromer Calcium Sorbitex [Veltassa] PO Not Given DAILY JACKIE Pantoprazole Sodium 40 mg 03/14/22 07:30 Pantoprazole 40 Mg Tablet PO AC-BRKFST JACKIE Polyethylene Glycol 17 gm 03/13/22 09:00 03/13/22 08:21 Polyethylene Glycol 3350 17 Gm Powd.Pack PO 17 gm DAILY JACKIE Administration Torsemide 10 mg 03/13/22 09:00 03/13/22 08:22 Torsemide 20 Mg Tab PO 10 mg DAILY JACKIE Administration Intake and Output 03/12/22 03/13/22 03/13/22 22:59 06:59 14:59 Intake Total 16.333 Output Total 130 Balance 16.333 -130 Intake: Intake, IV Titration 16.333 Amount Diltiazem 125 mg In 16.333 Sodium Chloride 0.9% 100 ml @ 5 MG/HR 5 mls/hr IV .Q24H [facility] Rx#:[id number] Output: Urine 130 Other: Voiding Method Indwelling Catheter Indwelling Catheter Indwelling Catheter Weight 79.1 kg 03/12/22 16:43 03/12/22 17:14 Assessment and Plan Assessment: Atrial fibrillation with rapid ventricular rate Elevated troponin with non-ST UT Acute on chronic kidney disease Plan: Will obtain an 2D echocardiogram Myocardial infarction ruled out, elevated troponins probably secondary to A. fib RVR and renal disease Continue with IV Cardizem to achieve better rate control Continue with all other current cardiac medications Insert further recommendations
[2022-03-13] MEDS: BRIMONIDINE TARTRATE 0.2% DROPS 5 ML BTL BOTH EYES SCH ×2 (11:02→20:42)
[2022-03-13 11:31] LABS: Glucose,Whole Blood 169 mg/dL (75-99)
--- NOTE | 2022-03-13 12:31 | CA ---
Transthoracic Echo Report Name: Libertad Boone Age: 86 Gender: F : 1935 Exam Date: 03/13/2022 09:34 Exam Location: [facility] Ht (in): 62 Wt (lb): 174 Ordering Physician: Lucia Fontana Attending/Referring Phys: Mud Grinder Janneth Valero RDCS Procedure CPT: Indications: a-fib Cardiac Hx: Limited echo. Full study done on 12/07/21 Technical Quality: Good Contrast 1: Total Dose (mL): Contrast 2: Total Dose (mL): MEASUREMENTS (Male / Female) Normal Values 2D ECHO LV Diastolic Diameter PLAX 3.0 cm 4.2 - 5.9 / 3.9 - 5.3 cm LV Systolic Diameter PLAX 1.3 cm IVS Diastolic Thickness 1.4 cm 0.6 - 1.0 / 0.6 - 0.9 cm LVPW Diastolic Thickness 1.8 cm 0.6 - 1.0 / 0.6 - 0.9 cm LV Relative Wall Thickness 1.1 RV Internal Dim ED PLAX 3.1 cm DOPPLER TR Peak Velocity 374.1 cm/s TR Peak Gradient 56.0 mmHg Right Ventricular Systolic Press 61.0 mmHg FINDINGS Left Ventricle Mod LVH.left ventricular ejection fraction is estimated at 55-60 %. Right Ventricle Right Atrium Left Atrium Mitral Valve Aortic Valve Tricuspid Valve Pulmonic Valve Pericardium No pericardial effusion. Aorta CONCLUSIONS Concentric left ventricular hypertrophy with normal LV systolic function with an ejection fraction is 60% with moderate mitral regurgitation Previewed by: Dr. Bruno Wesley MD (Electronically Signed) Final Date: 13 March 2022 12:29
--- NOTE | 2022-03-13 12:49 | P.CNPUL ---
History of Present Illness Consult date: 03/13/22 Reason for consult: pneumonia History of present illness: 86-year-old female patient, hospitalized because of generalized weakness, tiredness, worsening shortness of breath and atrial fibrillation with RVR. The patient was brought into the hospital via EMS. In the ED, the patient was found to be in A. fib/RVR and the patient was started on a Cardizem drip. Further investigation revealed that the patient had a right lower lobe consolidation consistent with pneumonia and the right-sided pleural effusion and a component of CHF. Troponins were also elevated and the patient was diagnosed having a type II non-ST segment elevation myocardial infarction. The white cell, with a 25.0 with hemoglobin of 0.9 and there was also concern of an underlying urine checked infection. Meanwhile, the patient was also found to have a decubitus ulcer the left buttocks stage III and another stage II on the right buttocks curve. Another small area of ulcer over the right ankle as well. Based on all this, the patient was hospitalized. The family has decided to admit this patient a DNR/DNI CODE STATUS Patient is also known to have multiple medical problems and comorbidities. The patient is known to have chronic atrial fibrillation and peripheral vascular disease. The patient is also known to have chronic kidney disease, diabetes mellitus and hypertension. The patient was hospitalized in [facility] in [facility] from 02/14/2020 2000 03/06/2022 for an underlying ascending cholangitis and sepsis. During that time, the patient developed an acute kidney injury and the patient required hemodialysis and she was given a hemodialysis catheter in right IJ she was dialyzed a regular basis. She also received antibiotics to treat cholangitis and UTI and following that, she was placed in medical [place] [facility] for continuation of care. On a separate note, the patient has severe obstructive sleep apnea with an AHI of 85 At this point in time, the patient is a 6 L of O2 nasal cannula with a pulse is 95%. Heart rate is irregular ranging between 101 120. She is afebrile. Breathing is nonlabored. Her white cell count is 75 with a hemoglobin 9.9, normal coagulation profile, d-dimer is at 1.5, sodium is at 135 with a potassium level of 3.8, BUN is at 45 with a creatinine of 0.9, lactic acid level at time of admission was 1.9, LFTs are normal, troponin of 0.072 respectively and the proBNP level was as high as 27,700. TSH is at 1.1 with an albumin of 2.3, UA showed 30 WBCs, and the digoxin level was at 0.7. CAT scan of the chest was noted. A previous echocardiogram from 12/07/2021 showed left ventricle ejection fraction of 50-55%, septal flattening and right ventricular pressure overload and volume overload. The patient had a dilated and enlarged RV. There was moderate to severe mitral regurgitation, moderate tricuspid regurgitation, pulmonary artery pressures were elevated at 67 mmHg. The IVC was dilated and it had a poor inspiratory collapse. Review of Systems Constitutional: No fever, no chills, no night sweats. No weight change. Positive fatigue and tiredness with lethargy with daytime sleeping. EENT: No headache. No blurred vision or double vision, no loss of vision. No loss of Hearing, no ringing in the ears, no dizziness. No nasal drainage or congestion. No epistaxis. No sore throat. Lungs: Mild shortness of breath cough wheezes. Cardiovascular: Positive dyspnea with PND orthopnea palpitations and mild lightheadedness and A. fib with RVR with CHF. Abdominal: Positive abdominal distention with slight discomfort transcutaneous biliary catheter at this point. : Positive indwelling catheter with irritation and discomfort. Musculoskeletal: No myalgias. No muscle weakness, no gait dysfunction, no frequent falls. No back pain. No neck pain. Integumentary: Positive wound on the buttocks area bilaterally worse on the left than the right side will use regular dressing and special mattress. Neurologic: No aphasia. No facial droop. No change in mentation. No head injury. No headache. No paralysis. No paresthesia. Psychiatric: No depression. No anxiety. No mood swings. Endocrine: No abnormal blood sugars. No weight change. No excessive sweating or thirst. No cold intolerance. Past Medical History Past Medical History: Atrial Fibrillation, Heart Failure (Diastolic heart failure along with severe pulmonary hypertension), Diabetes Mellitus, Hypertension, Sleep Apnea/CPAP/BIPAP, Thyroid Disorder, Vascular Disorder History of Any Multi-Drug Resistant Organisms: None Reported Past Surgical History: Cholecystectomy Smoking Status: Former smoker Past Alcohol Use History: None Reported Past Drug Use History: None Reported - Past Family History Father History Unknown: Yes Mother History Unknown: Yes Medications and Allergies Home Medications Medication Instructions Recorded Confirmed Type Apixaban [Eliquis] 5 mg PO BID 12/04/21 03/12/22 History Atorvastatin Calcium [Lipitor] 80 mg PO HS 12/04/21 03/12/22 History Brimonidine Tartrate [Alphagan P 1 drop BOTH EYES Q12H 12/04/21 03/12/22 History 0.2% Ophth Soln] Digoxin [Digitek] 125 mcg PO MOWEFR 12/04/21 03/12/22 History Levothyroxine Sodium [Synthroid] 150 mcg PO DAILY 12/04/21 03/12/22 History Acetaminophen Tab [Tylenol Tab] 500 mg PO Q6HR PRN 03/12/22 03/12/22 History Acetaminophen [Tylenol] 650 mg PO Q4H PRN MDD 3 GM 03/12/22 03/12/22 History Glucose Gel 40% 1 applicator PO DAILY PRN 03/12/22 03/12/22 History Hydrocodone/Acetaminophen 5-300 Mg 1 tab PO Q48H PRN 03/12/22 03/12/22 History INSULIN LISPRO (HumaLOG) [humaLOG] See Protocol SQ ACHS 03/12/22 03/12/22 History Metoprolol Tartrate [Lopressor] 50 mg PO TID 03/12/22 03/12/22 History Midodrine HCl [ProAmatine] 10 mg PO TID PRN 03/12/22 03/12/22 History Nephro-Gloria 0.8mg Tab 1 tab PO DAILY 03/12/22 03/12/22 History Patiromer Calcium Sorbitex 1 packet PO DAILY 03/12/22 03/12/22 History [Veltassa] Torsemide [Demadex] 10 mg PO DAILY 03/12/22 03/12/22 History bisacodyL 10 mg RECTAL DAILY PRN 03/12/22 03/12/22 History polyethylene glycoL 3350 [Miralax] 17 gm PO DAILY 03/12/22 03/12/22 History Allergies Allergy/AdvReac Type Severity Reaction Status Date / Time No Known Allergies Allergy Verified 03/12/22 18:17 Physical Exam Vitals: Vital Signs Temp Pulse Pulse Resp BP BP Pulse Ox 03/13/22 08:21 98.0 F 122 H 18 109/64 95 03/13/22 04:25 97.6 F 99 17 103/64 93 L 03/12/22 23:00 98 F 117 H 19 97/88 95 03/12/22 21:54 113 H 26 H 113/84 92 L 03/12/22 21:50 97 F L 120 H 18 115/74 95 03/12/22 20:52 106 H 26 H 119/61 94 L 03/12/22 19:53 114 H 26 H 133/66 97 03/12/22 18:38 130 H 18 102/65 96 03/12/22 16:26 97.5 F L 138 H 20 115/70 95 Intake and Output 03/12/22 03/13/22 03/13/22 22:59 06:59 14:59 Intake Total 16.333 Output Total 130 Balance 16.333 -130 Intake: Intake, IV Titration 16.333 Amount Diltiazem 125 mg In 16.333 Sodium Chloride 0.9% 100 ml @ 5 MG/HR 5 mls/hr IV .Q24H [facility] Rx#:[id number] Output: Urine 130 Other: Voiding Method Indwelling Catheter Indwelling Catheter Indwelling Catheter Weight 79.1 kg Gen: This is elderly does not look in any respiratory distress. The patient's breathing is nonlabored and the patient is currently on 6 L of O2 nasal cannula HEENT: Head is atraumatic, normocephalic. Pupils equal, round. Sclerae is anicteric. NECK: Supple. No JVD. No lymphadenopathy. No thyromegaly. LUNGS: Decrease breath some other acute fine rhonchi positive crackles in the bases with decreased breath sounds in the right side [facility] through. HEART: Irregular rhythm and rate S1-S2 positive S3 positive systolic murmur in the apex. This consistent with atrial fibrillation. ABDOMEN: Soft positive bowel sounds positive transcutaneous catheter in the right side biliary catheter, slight discomfort lower abdominal region area mostly suprapubic. EXTREMITIES: Right leg had a small ulcerated area one time 1 cm only stage II with slight decrease pulse in the dorsalis pedis bilaterally with trace edema worse on the right than the left side Back: She had decubitus ulcer on the left side measure 3 time 3 inches stage III, right side had curve with half horseshoe shape the middle is more superf icial but the edges are deeper with the area almost 53 inches. NEUROLOGICAL: Patient is awake, alert and oriented x3. Cranial nerves 2 through 12 are grossly intact. Results - Laboratory Findings CBC and BMP: 03/12/22 16:43 03/12/22 17:14 PT/INR, D-dimer PT 11.5 sec (9.0-12.0) 03/12/22 16:43 INR 1.1 (<1.2) 03/12/22 16:43 D-Dimer 1.50 mg/L FEU (<0.60) H 03/12/22 16:43 Abnormal lab findings: Abnormal Labs 03/12/22 03/12/22 03/12/22 16:43 16:43 17:14 WBC 25.9 H RBC 3.53 L Hgb 9.9 L Hct 32.5 L MCHC 30.6 L RDW 18.5 H Neutrophils # 24.7 H Lymphocytes # 0.3 L D-Dimer 1.50 H Sodium 135 L BUN 45 H Glucose 141 H POC Glucose (mg/dL) Calcium 7.6 L Troponin I Total Protein 4.9 L Albumin 2.3 L Ur Leukocyte Esterase Urine WBC Urine Bacteria 03/12/22 03/12/22 03/12/22 17:14 17:14 20:46 WBC RBC Hgb Hct MCHC RDW Neutrophils # Lymphocytes # D-Dimer Sodium BUN Glucose POC Glucose (mg/dL) Calcium Troponin I 0.064 H* 0.071 H* Total Protein Albumin Ur Leukocyte Esterase Moderate H Urine WBC 30 H Urine Bacteria Many H 03/12/22 03/13/22 03/13/22 21:51 00:10 05:53 WBC RBC Hgb Hct MCHC RDW Neutrophils # Lymphocytes # D-Dimer Sodium BUN Glucose POC Glucose (mg/dL) 126 H 125 H Calcium Troponin I 0.070 H* Total Protein Albumin Ur Leukocyte Esterase Urine WBC Urine Bacteria - Diagnostic Findings Chest x-ray: image reviewed CT scan - chest: image reviewed Assessment and Plan Plan: 1 acute right lower lobe pneumonia with dense consolidation of the right lung base along with a small right-sided pleural effusion. Consider hospital- acquired/fci acquired pneumonia. Consider aspiration. 2 acute hypoxic respiratory failure secondary to above 3 shortness of breath secondary to above. Noted the patient was also in atrial fibrillation with rapid ventricular response 4 chronic A. fib with RVR at time of admission, placed on a Cardizem drip current rate is under better control and cardiology on the case and the patient is demented and accommodation metoprolol digoxin Eliquis on outpatient basis 5 small right-sided pleural effusion 6 previous history of UTI and sepsis 7 acute non-ST segment elevation myocardial infarction, possibly type II secondary to above 8 diastolic heart failure with severe pulmonary hypertension, with a PA pressure of 67 at a graph 9 recent hospitalization for sepsis/ascending cholangitis also induce and the patient underwent a transcutaneous. She'll drainage 9 acute kidney injury during a recent hospitalization, requiring hemodialysis, currently in the function is back to normal 10 diabetes mellitus type 2 11 hypothyroidism 12 hyperlipidemia 15 obstructive sleep apnea 14 decubitus ulceration, discussed as above Plan This patient will need broad-spectrum antibiotics. I recommend covering this patient with accommodation Zosyn and vancomycin regarding right lower lobe pneumonia which could be aspiration versus hospital-acquired/fci acquired Titrate FiO2 to maintain saturation above 90% currently on 6 L No need for thoracentesis as a right-sided pleural effusion is small Continue Lasix 40 mg IV every 12 hours Rate control regarding atrial fibrillation. The patient was in a Cardizem drip at 5 mg an hour this will be weaned off and the patient is also on a combination of digoxin and metoprolol 50 mg by mouth 3 times a day Wound care CODE STATUS is DNR/DNI We'll follow
[2022-03-13] MEDS: SODIUM CHLORIDE 0.9% 1,000 ML IV SCH ×2 (13:30→20:43)
[2022-03-13 16:25] LABS: Glucose,Whole Blood 179 mg/dL (75-99)
[2022-03-13] MEDS: HYDROcodone/APAP 5-325MG 1 EACH TAB PO PRN ×2 (18:13→22:57)
[2022-03-13] MEDS: PIPERACILLIN-TAZOBACTAM 3.375 GM in SODIUM CHLORIDE 0.9% 100 ML IVPB SCH ×2 (18:36→22:57)
[2022-03-13] MEDS: COLLAGENASE 250 UNIT/GM OINTMENT 30 GM TUBE TOPICAL SCH (18:39)
[2022-03-13 20:21] LABS: Glucose,Whole Blood 185 mg/dL (75-99)
[2022-03-13] MEDS: ATORVASTATIN 80 MG TAB PO SCH (20:42)
--- NOTE | 2022-03-14 00:17 | P.CONS ---
History of Present Illness - Reason for Consult Consult date: 03/13/22 Decubitus ulcer Requesting physician: Abhay Eid - Chief Complaint Increasing shortness of breath x1 day - History of Present Illness Patient is 86-year-old female with multiple comorbidities including diabetes mellitus hypertension atrial fibrillation congestive heart failure chronic kidney disease and this patient recently did have a prolonged stay at [facility] from 02/13/2022 till 03/06/2022 with the patient was treated for ascending cholangitis patient did have cholecystotomy tube and did require dialysis through the right IJ catheter has subsequently been discontinued patient subsequently was transferred to [facility] for rehabilitation, the patient was brought into the ER complaining of severe weakness tiredness and increasing shortness of breath and this patient symptom has been going on for a day before presentation to the hospital on arrival to the ER the patient was afebrile and no fever have been recorded subsequently patient is on supplemental oxygen patient did have white count of 25.9 with a left shift did have elevated BUN and creatinine was normal liver enzymes are normal did have elevated troponin urine was positive patient did have a chest x- ray patchy pulmonary edema with pleural effusion and right middle lobe consolidation patient did have a CT angiogram of the chest that was negative for PE did shows pulmonary infiltrate and right effusion question of CHF pneumonia also likely the patient has been started on Zosyn blood culture has been repeated currently pending infectious was consulted because of her sacral pressure ulcer and need for further treatment, patient herself was not a very good historian patient denies having any fever or any chills she been complaining of shortness of breath however denies any chest pain she did have some cough unambiguously sputum no abdominal pain has been complaining of pain to the sacral wound area unable to quantify it any further and is not very clear for kind of treatment was provided to aid at the [facility] Review of Systems Positive point has been mentioned in the HPI rest of the systems are negative Past Medical History Past Medical History: Atrial Fibrillation, Heart Failure (Diastolic heart failure along with severe pulmonary hypertension), Diabetes Mellitus, Hypertension, Sleep Apnea/CPAP/BIPAP, Thyroid Disorder, Vascular Disorder History of Any Multi-Drug Resistant Organisms: None Reported Past Surgical History: Cholecystectomy Smoking Status: Former smoker Past Alcohol Use History: None Reported Past Drug Use History: None Reported - Past Family History Father History Unknown: Yes Mother History Unknown: Yes Medications and Allergies Home Medications Medication Instructions Recorded Confirmed Type Apixaban [Eliquis] 5 mg PO BID 12/04/21 03/12/22 History Atorvastatin Calcium [Lipitor] 80 mg PO HS 12/04/21 03/12/22 History Brimonidine Tartrate [Alphagan P 1 drop BOTH EYES Q12H 12/04/21 03/12/22 History 0.2% Ophth Soln] Digoxin [Digitek] 125 mcg PO MOWEFR 12/04/21 03/12/22 History Levothyroxine Sodium [Synthroid] 150 mcg PO DAILY 12/04/21 03/12/22 History Acetaminophen Tab [Tylenol Tab] 500 mg PO Q6HR PRN 03/12/22 03/12/22 History Acetaminophen [Tylenol] 650 mg PO Q4H PRN MDD 3 GM 03/12/22 03/12/22 History Glucose Gel 40% 1 applicator PO DAILY PRN 03/12/22 03/12/22 History Hydrocodone/Acetaminophen 5-300 Mg 1 tab PO Q48H PRN 03/12/22 03/12/22 History INSULIN LISPRO (HumaLOG) [humaLOG] See Protocol SQ ACHS 03/12/22 03/12/22 History Metoprolol Tartrate [Lopressor] 50 mg PO TID 03/12/22 03/12/22 History Midodrine HCl [ProAmatine] 10 mg PO TID PRN 03/12/22 03/12/22 History Nephro-Gloria 0.8mg Tab 1 tab PO DAILY 03/12/22 03/12/22 History Patiromer Calcium Sorbitex 1 packet PO DAILY 03/12/22 03/12/22 History [Veltassa] Torsemide [Demadex] 10 mg PO DAILY 03/12/22 03/12/22 History bisacodyL 10 mg RECTAL DAILY PRN 03/12/22 03/12/22 History polyethylene glycoL 3350 [Miralax] 17 gm PO DAILY 03/12/22 03/12/22 History Allergies Allergy/AdvReac Type Severity Reaction Status Date / Time No Known Allergies Allergy Verified 03/12/22 18:17 Physical Exam Vitals: Vital Signs Temp Pulse Pulse Resp BP BP Pulse Ox 03/13/22 11:24 98.0 F 79 16 103/68 96 03/13/22 08:21 98.0 F 122 H 18 109/64 95 03/13/22 04:25 97.6 F 99 17 103/64 93 L 03/12/22 23:00 98 F 117 H 19 97/88 95 03/12/22 21:54 113 H 26 H 113/84 92 L 03/12/22 21:50 97 F L 120 H 18 115/74 95 03/12/22 20:52 106 H 26 H 119/61 94 L 03/12/22 19:53 114 H 26 H 133/66 97 03/12/22 18:38 130 H 18 102/65 96 03/12/22 16:26 97.5 F L 138 H 20 115/70 95 Intake and Output 03/12/22 03/13/22 03/13/22 22:59 06:59 14:59 Intake Total 16.333 790 Output Total 130 20 Balance 16.333 -130 770 Intake: Intake, IV Titration 16.333 250 Amount Diltiazem 125 mg In 16.333 Sodium Chloride 0.9% 100 ml @ 5 MG/HR 5 mls/hr IV .Q24H [facility] Rx#:[id number] Vancomycin 1,000 mg In 250 Sodium Chloride 0.9% 250 ml @ 125 mls/hr IVPB ONCE STA Rx#:[id number] Oral 540 Output: Urine 130 20 Other: Voiding Method Indwelling Catheter Indwelling Catheter Indwelling Catheter Weight 79.1 kg 79.1 kg GENERAL DESCRIPTION: An elderly female lying in bed, no distress. No tachypnea or accessory muscle of respiration use. HEENT: Shows Pallor , no scleral icterus. Oral mucous membrane is dry. No pharyngeal erythema or thrush NECK: Trachea central, no thyromegaly. LUNGS: Unlabored breathing. Decreased present the base. No wheeze or crackle. HEART: S1, S2, regular rate and rhythm. No loud murmur ABDOMEN: Soft, no tenderness , guarding or rigidity, no organomegaly EXTREMITIES: No edema of feet. SKIN: No rash, no masses palpable. Patient did have a stage IV sacral pressure ulcer with slough tissue no significant surrounding redness or foul-smelling drainage NEUROLOGICAL: The patient is awake, alert, oriented x2, mood and affect normal. Results CBC & Chem 7: 03/12/22 16:43 03/12/22 17:14 Labs: Abnormal Lab Results - Last 24 Hours (Table) 03/12/22 03/12/22 03/12/22 Range/Units 16:43 16:43 17:14 WBC 25.9 H (3.8-10.6) k/uL RBC 3.53 L (3.80-5.40) m/uL Hgb 9.9 L (11.4-16.0) gm/dL Hct 32.5 L (34.0-46.0) % MCHC 30.6 L (31.0-37.0) g/dL RDW 18.5 H (11.5-15.5) % Neutrophils # 24.7 H (1.3-7.7) k/uL Lymphocytes # 0.3 L (1.0-4.8) k/uL D-Dimer 1.50 H (<0.60) mg/L FEU Sodium 135 L (137-145) mmol/L BUN 45 H (7-17) mg/dL Glucose 141 H (74-99) mg/dL POC Glucose (mg/dL) (75-99) mg/dL Calcium 7.6 L (8.4-10.2) mg/dL Troponin I (0.000-0.034) ng/mL Total Protein 4.9 L (6.3-8.2) g/dL Albumin 2.3 L (3.5-5.0) g/dL Ur Leukocyte Esterase (Negative) Urine WBC (0-5) /hpf Urine Bacteria (None) /hpf 03/12/22 03/12/22 03/12/22 Range/Units 17:14 17:14 20:46 WBC (3.8-10.6) k/uL RBC (3.80-5.40) m/uL Hgb (11.4-16.0) gm/dL Hct (34.0-46.0) % MCHC (31.0-37.0) g/dL RDW (11.5-15.5) % Neutrophils # (1.3-7.7) k/uL Lymphocytes # (1.0-4.8) k/uL D-Dimer (<0.60) mg/L FEU Sodium (137-145) mmol/L BUN (7-17) mg/dL Glucose (74-99) mg/dL POC Glucose (mg/dL) (75-99) mg/dL Calcium (8.4-10.2) mg/dL Troponin I 0.064 H* 0.071 H* (0.000-0.034) ng/mL Total Protein (6.3-8.2) g/dL Albumin (3.5-5.0) g/dL Ur Leukocyte Esterase Moderate H (Negative) Urine WBC 30 H (0-5) /hpf Urine Bacteria Many H (None) /hpf 03/12/22 03/13/22 03/13/22 Range/Units 21:51 00:10 05:53 WBC (3.8-10.6) k/uL RBC (3.80-5.40) m/uL Hgb (11.4-16.0) gm/dL Hct (34.0-46.0) % MCHC (31.0-37.0) g/dL RDW (11.5-15.5) % Neutrophils # (1.3-7.7) k/uL Lymphocytes # (1.0-4.8) k/uL D-Dimer (<0.60) mg/L FEU Sodium (137-145) mmol/L BUN (7-17) mg/dL Glucose (74-99) mg/dL POC Glucose (mg/dL) 126 H 125 H (75-99) mg/dL Calcium (8.4-10.2) mg/dL Troponin I 0.070 H* (0.000-0.034) ng/mL Total Protein (6.3-8.2) g/dL Albumin (3.5-5.0) g/dL Ur Leukocyte Esterase (Negative) Urine WBC (0-5) /hpf Urine Bacteria (None) /hpf 03/13/22 Range/Units 11:30 WBC (3.8-10.6) k/uL RBC (3.80-5.40) m/uL Hgb (11.4-16.0) gm/dL Hct (34.0-46.0) % MCHC (31.0-37.0) g/dL RDW (11.5-15.5) % Neutrophils # (1.3-7.7) k/uL Lymphocytes # (1.0-4.8) k/uL D-Dimer (<0.60) mg/L FEU Sodium (137-145) mmol/L BUN (7-17) mg/dL Glucose (74-99) mg/dL POC Glucose (mg/dL) 169 H (75-99) mg/dL Calcium (8.4-10.2) mg/dL Troponin I (0.000-0.034) ng/mL Total Protein (6.3-8.2) g/dL Albumin (3.5-5.0) g/dL Ur Leukocyte Esterase (Negative) Urine WBC (0-5) /hpf Urine Bacteria (None) /hpf Microbiology - Last 24 Hours (Table) 03/12/22 17:14 Urine Culture - Preliminary Urine,Voided Assessment and Plan (1) Leukocytosis Current Visit: Yes Status: Acute Code(s): D72.829 - ELEVATED WHITE BLOOD CELL COUNT, UNSPECIFIED SNOMED Code(s): 260202286 Plan: 1patient with a stage IV sacral pressure ulcer with slough tissue however no significant surrounding redness underlying second infection less likely but not excluded patient benefit from surgical debridement for general surgery be consulted, for now local wound care with the Santyl followed by moist dressing to be changed daily and keep the area of the pressure. 2patient with increasing shortness of breath abnormal x-ray and a CT more likely CHF underlying pneumonia less likely but not excluded. 3 continue with Zosyn. 4obtain CRP and a sed rate as well as a procalcitonin. 5sputum for gram stain and culture. We will follow on clinical condition and cultures to further adjust medication if needed Thank you for this consultation will follow this patient along with you Time with Patient: Greater than 30
[2022-03-14 05:50] LABS: Glucose,Whole Blood 127 mg/dL (75-99)
[2022-03-14] MEDS: DILTIAZEM 125 MG in SODIUM CHLORIDE 0.9% 100 ML IV SCH (05:52)
[2022-03-14] MEDS: SODIUM CHLORIDE 0.9% 1,000 ML IV SCH ×3 (05:52→23:32)
[2022-03-14] MEDS: INSULIN ASPART (NovoLOG) 100 UNIT/ML VIAL SQ SCH ×4 (05:53→20:34)
[2022-03-14] MEDS: LEVOTHYROXINE 75 MCG TAB PO SCH (05:55)
[2022-03-14] MEDS: PANTOPRAZOLE 40 MG TABLET PO SCH (05:58)
[2022-03-14] MEDS: FUROSEMIDE 10 MG/ML 4 ML VIAL IV SCH (08:09)
[2022-03-14] MEDS: PIPERACILLIN-TAZOBACTAM 3.375 GM in SODIUM CHLORIDE 0.9% 100 ML IVPB SCH ×3 (08:09→23:29)
[2022-03-14] MEDS: FOLIC ACID-VIT B COMPLEX-VIT C 1 CAP PO SCH (08:09)
[2022-03-14] MEDS: METOPROLOL TARTRATE 50 MG TAB PO SCH ×3 (08:09→20:34)
[2022-03-14] MEDS: APIXABAN 5 MG TAB PO SCH ×2 (08:09→20:34)
[2022-03-14] MEDS: TORSEMIDE 20 MG TAB PO SCH (08:09)
[2022-03-14] MEDS: HYDROcodone/APAP 5-325MG 1 EACH TAB PO PRN ×3 (08:10→15:40)
--- NOTE | 2022-03-14 08:37 | XR ---
EXAMINATION TYPE: XR sacrum coccyx DATE OF EXAM: 03/14/2022 COMPARISON: None HISTORY: Sacral pressure ulcer TECHNIQUE: 3 view sacrum and coccyx FINDINGS: There is a large fecal bolus of the rectum limiting the frontal projection. Sacroiliac join ts as visualized are normal. Symphysis pubis is poorly visualized. Large wound is on the posterior buttocks. No cortical erosion is clearly identified within the sacrum or coccyx. IMPRESSION: 1. No radiographic evidence of osteomyelitis. Follow up exams can be performed as clinically indicat ed
--- NOTE | 2022-03-14 08:40 | XR ---
EXAMINATION TYPE: XR chest 1V portable DATE OF EXAM: 03/14/2022 COMPARISON: 03/12/2022 INDICATION: Pleural effusion TECHNIQUE: Single frontal view of the chest is obtained. FINDINGS: The heart size is moderately prominent. The pulmonary vasculature is prominent. There is some increased lung markings greater on the right. Findings appear to be worsening. Small le ft pleural effusion is present IMPRESSION: 1. Worsening bilateral lung infiltrates more so on the right. 2. Small effusions
[2022-03-14 08:55] LABS: Anisocytosis Slight; HCT 31.2 % (34.0-46.0); HGB 9.5 gm/dL (11.4-16.0); Hypochromasia Marked; MCH 28.5 pg (25.0-35.0); MCHC 30.3 g/dL (31.0-37.0); MCV 93.9 fL (80.0-100.0); Macrocytosis Slight; Mean Platelet Volume 7.3; Platelet Count 484 k/uL (150-450); Poikilocytosis Moderate; RBC 3.32 m/uL (3.80-5.40); WBC 23.9 k/uL (3.8-10.6)
[2022-03-14 09:10] LABS: Albumin 2.1 g/dL (3.5-5.0); Calcium 6.9 mg/dL (8.4-10.2); Potassium 3.9 mmol/L (3.5-5.1); Total Bilirubin 0.6 mg/dL (0.2-1.3); Total Protein 4.6 g/dL (6.3-8.2)
[2022-03-14 09:22] LABS: C Reactive Protein 22.3 mg/dL (<1.0)
[2022-03-14] MEDS: NON FORMULARY DRUG (Patiromer Calcium Sorbitex [Veltassa] 8.4 GM Packet) PO SCH (10:31)
[2022-03-14] MEDS: polyethylene glycoL 3350 17 GM POWD.PACK PO SCH (10:32)
[2022-03-14] MEDS: BRIMONIDINE TARTRATE 0.2% DROPS 5 ML BTL BOTH EYES SCH ×2 (10:32→20:34)
[2022-03-14 10:37] LABS: Erythrocyte Sedimentation Rate 58 mm/hr (0-20)
[2022-03-14] MEDS: COLLAGENASE 250 UNIT/GM OINTMENT 30 GM TUBE TOPICAL SCH (11:16)
--- NOTE | 2022-03-14 11:41 | P.PN ---
Subjective Progress Note Date: 03/14/22 86-year-old female patient, hospitalized because of generalized weakness, tiredness, worsening shortness of breath and atrial fibrillation with RVR. The patient was brought into the hospital via EMS. In the ED, the patient was found to be in A. fib/RVR and the patient was started on a Cardizem drip. Further investigation revealed that the patient had a right lower lobe consolidation consistent with pneumonia and the right-sided pleural effusion and a component of CHF. Troponins were also elevated and the patient was diagnosed having a type II non-ST segment elevation myocardial infarction. The white cell, with a 25.0 with hemoglobin of 0.9 and there was also concern of an underlying urine ch ecked infection. Meanwhile, the patient was also found to have a decubitus ulcer the left buttocks stage III and another stage II on the right buttocks curve. Another small area of ulcer over the right ankle as well. Based on all this, the patient was hospitalized. The family has decided to admit this patient a DNR/DNI CODE STATUS Patient is also known to have multiple medical problems and comorbidities. The patient is known to have chronic atrial fibrillation and peripheral vascular disease. The patient is also known to have chronic kidney disease, diabetes mellitus and hypertension. The patient was hospitalized in [facility] in [facility] from 02/14/2020 2000 03/06/2022 for an underlying ascending cholangitis and sepsis. During that time, the patient developed an acute kidney injury and the patient required hemodialysis and she was given a hemodialysis catheter in right IJ she was dialyzed a regular basis. She also received antibiotics to treat cholangitis and UTI and following that, she was placed in medical [place] [facility] for continuation of care. On a separate note, the patient has severe obstructive sleep apnea with an AHI of 85 At this point in time, the patient is a 6 L of O2 nasal cannula with a pulse is 95%. Heart rate is irregular ranging between 101 120. She is afebrile. Breathing is nonlabored. Her white cell count is 75 with a hemoglobin 9.9, normal coagulation profile, d-dimer is at 1.5, sodium is at 135 with a potassium level of 3.8, BUN is at 45 with a creatinine of 0.9, lactic acid level at time of admission was 1.9, LFTs are normal, troponin of 0.072 respectively and the proBNP level was as high as 27,700. TSH is at 1.1 with an albumin of 2.3, UA showed 30 WBCs, and the digoxin level was at 0.7. CAT scan of the chest was not ed. A previous echocardiogram from 12/07/2021 showed left ventricle ejection fraction of 50-55%, septal flattening and right ventricular pressure overload and volume overload. The patient had a dilated and enlarged RV. There was moderate to severe mitral regurgitation, moderate tricuspid regurgitation, pulmonary artery pressures were elevated at 67 mmHg. The IVC was dilated and it had a poor inspiratory collapse. 03/14/2022, the patient is essentially the same as yesterday. No significant changes condition. The patient remains on oxygen and the patient is currently on 4 L O2 nasal cannula with a pulse of 98 %. The patient otherwise doing well. The patient's blood work from today shows a developed an acute kidney injury. Based on that, I I discontinued the Lasix and also discontinue the torsemide and the patient was taking. Otherwise, the patient remains on IV Zosyn covering for an extensive right lower lobe pneumonia. She is afebrile. She is hemodynamically stable. The white cell count is at 23 with a hemoglobin 9.5, sodium is at 133 with a BUN of 55 and a creatinine of 1.4. Echocardiogram shows concentric LVH, EF of around 60% along with moderate MR. The patient remains in atrial fibrillation and the patient remains on Cardizem at 5 mg an hour with adequate rate control. Breathing is nonlabored Objective - Vital Signs Vital signs: Vital Signs Temp 98.2 F 03/14/22 08:00 Pulse 105 H 03/14/22 08:00 Resp 16 03/14/22 08:00 BP 114/64 03/14/22 08:00 Pulse Ox 98 03/14/22 08:00 Intake & Output 03/13/22 03/14/22 03/14/22 18:59 06:59 18:59 Intake Total 898.667 700 Output Total 20 80 Balance 878.667 620 Weight 79.1 kg 84 kg Intake: Intake, IV Titration 358.667 100 Amount Diltiazem 125 mg In 108.667 Sodium Chloride 0.9% 100 ml @ 5 MG/HR 5 mls/hr IV .Q24H [facility] Rx#:[id number] Piperacillin-Tazobactam 3 100 .375 gm In Sodium Chloride 0.9% 100 ml @ 25 mls/hr IVPB Q8HR [facility] Rx# :[id number] Vancomycin 1,000 mg In 250 Sodium Chloride 0.9% 250 ml @ 125 mls/hr IVPB ONCE [facility] Rx#:[id number] Oral 540 600 Output: Urine 20 80 Other: Voiding Method Indwelling Catheter Indwelling Catheter Indwelling Catheter - Exam Gen: This is elderly does not look in any respiratory distress. The patient's breathing is nonlabored and the patient is currently on 4 L of O2 nasal cannula HEENT: Head is atraumatic, normocephalic. Pupils equal, round. Sclerae is anicteric. NECK: Supple. No JVD. No lymphadenopathy. No thyromegaly. LUNGS: Decrease breath some other acute fine rhonchi positive crackles in the bases with decreased breath sounds in the right side snf through. HEART: Irregular rhythm and rate S1-S2 positive S3 positive systolic murmur in the apex. This consistent with atrial fibrillation. ABDOMEN: Soft positive bowel sounds positive transcutaneous catheter in the right side biliary catheter, slight discomfort lower abdominal region area mostly suprapubic. EXTREMITIES: Right leg had a small ulcerated area one time 1 cm only stage II with slight decrease pulse in the dorsalis pedis bilaterally with trace edema worse on the right than the left side Back: She had decubitus ulcer on the left side measure 3 time 3 inches stage III, right side had curve with half horseshoe shape the middle is more superficial but the edges are deeper with the area almost 53 inches. NEUROLOGICAL: Patient is awake, alert and oriented x3. Cranial nerves 2 through 12 are grossly intact. - Labs CBC & Chem 7: 03/14/22 08:31 03/14/22 08:31 Labs: Abnormal Lab Results - Last 24 Hours (Table) 03/13/22 03/13/22 03/14/22 Range/Units 16:24 20:18 05:49 WBC (3.8-10.6) k/uL RBC (3.80-5.40) m/uL Hgb (11.4-16.0) gm/dL Hct (34.0-46.0) % MCHC (31.0-37.0) g/dL RDW (11.5-15.5) % Plt Count (150-450) k/uL ESR (0-20) mm/hr Sodium (137-145) mmol/L BUN (7-17) mg/dL Creatinine (0.52-1.04) mg/dL Glucose (74-99) mg/dL POC Glucose (mg/dL) 179 H 185 H 127 H (75-99) mg/dL Calcium (8.4-10.2) mg/dL C-Reactive Protein (<1.0) mg/dL Total Protein (6.3-8.2) g/dL Albumin (3.5-5.0) g/dL Procalcitonin (0.02-0.09) ng/mL 03/14/22 03/14/22 03/14/22 Range/Units 08:31 08:31 08:31 WBC 23.9 H (3.8-10.6) k/uL RBC 3.32 L (3.80-5.40) m/uL Hgb 9.5 L (11.4-16.0) gm/dL Hct 31.2 L (34.0-46.0) % MCHC 30.3 L (31.0-37.0) g/dL RDW 19.0 H (11.5-15.5) % Plt Count 484 H (150-450) k/uL ESR 58 H (0-20) mm/hr Sodium 133 L (137-145) mmol/L BUN 55 H (7-17) mg/dL Creatinine 1.40 H (0.52-1.04) mg/dL Glucose 132 H (74-99) mg/dL POC Glucose (mg/dL) (75-99) mg/dL Calcium 6.9 L (8.4-10.2) mg/dL C-Reactive Protein 22.3 H (<1.0) mg/dL Total Protein 4.6 L (6.3-8.2) g/dL Albumin 2.1 L (3.5-5.0) g/dL Procalcitonin 3.32 H (0.02-0.09) ng/mL Microbiology - Last 24 Hours (Table) 03/12/22 17:14 Urine Culture - Preliminary Urine,Voided Gram Neg Bacilli 03/12/22 20:03 Blood Culture - Preliminary Blood No Growth after 24 hours Assessment and Plan Plan: 1 acute right lower lobe pneumonia with dense consolidation of the right lung base along with a small right-sided pleural effusion. Consider hospital- acquired/long-term acquired pneumonia. Consider aspiration.. The patient is currently covered with IV Zosyn 2 acute hypoxic respiratory failure secondary to above, improving and the patient is currently on 4 L O2 nasal cannula 3 shortness of breath secondary to above. Noted the patient was also in atrial fibrillation with rapid ventricular response 4 chronic A. fib with RVR at time of admission, placed on a Cardizem drip current rate is under better control and cardiology on the case and the patient is demented and accommodation metoprolol digoxin Eliquis on outpatient basis, still a Cardizem drip at 5 mg an hour 5 small right-sided pleural effusion 6 previous history of UTI and sepsis 7 acute non-ST segment elevation myocardial infarction, possibly type II s econdary to above 8 diastolic heart failure with severe pulmonary hypertension, with a PA pressure of 67 at a graph 9 recent hospitalization for sepsis/ascending cholangitis also induce and the patient underwent a transcutaneous. She'll drainage 9 acute kidney injury during a recent hospitalization, requiring hemodialysis, currently in the function is back to normal 10 diabetes mellitus type 2 11 hypothyroidism 12 hyperlipidemia 15 obstructive sleep apnea 14 decubitus ulceration, discussed as above 15 acute kidney injury probably related to diuresis Plan Stop diuretics including Lasix and torsemide Monitor renal function Continue IV Zosyn This patient will need broad-spectrum antibiotics. I recommend covering this patient with accommodation Zosyn and vancomycin regarding right lower lobe pneumonia which could be aspiration versus hospital-acquired/long-term acquired Titrate FiO2 to maintain saturation above 90% currently on 4L No need for thoracentesis as a right-sided pleural effusion is small Rate control regarding atrial fibrillation. The patient was in a Cardizem drip at 5 mg an hour this will be weaned off and the patient is also on a combination of digoxin and metoprolol 50 mg by mouth 3 times a day, Cardizem drip can be gradually weaned off Wound care CODE STATUS is DNR/DNI We'll follow
[2022-03-14 11:48] LABS: Glucose,Whole Blood 174 mg/dL (75-99)
--- NOTE | 2022-03-14 11:52 | P.PN ---
Subjective Progress Note Date: 03/14/22 Patient has a known history of atrial fibrillation, congestive heart failure, peripheral artery disease, hypertension, chronic kidney disease, and diabetes. Patient was at rehab and was found to have increased weakness and to be in atrial fibrillation with RVR accompanied with worsening dyspnea. Patient's pulse rate was 140-150. Her EKG shows atrial fibrillation with RVR. Patient is examined today resting comfortably in bed. She denies chest pain or increasing shortness of breath She remains atrial fibrillation on the monitor. Her heart rate is better controlled, we will stop IV Cardizem and continue with oral digoxin and Lopressor 50 mg bid a day. Her echocardiogram shows a normal LV function with an ejection fraction of 60%, without significant valvular disease. Objective - Vital Signs Vital signs: Vital Signs Temp 98.2 F 03/14/22 08:00 Pulse 105 H 03/14/22 08:00 Resp 16 03/14/22 08:00 BP 114/64 03/14/22 08:00 Pulse Ox 98 03/14/22 08:00 Intake & Output 03/13/22 03/14/22 03/14/22 18:59 06:59 18:59 Intake Total 898.667 700 Output Total 20 80 Balance 878.667 620 Weight 79.1 kg 84 kg Intake: Intake, IV Titration 358.667 100 Amount Diltiazem 125 mg In 108.667 Sodium Chloride 0.9% 100 ml @ 5 MG/HR 5 mls/hr IV .Q24H [facility] Rx#:[id number] Piperacillin-Tazobactam 3 100 .375 gm In Sodium Chloride 0.9% 100 ml @ 25 mls/hr IVPB Q8HR [facility] Rx# :[id number] Vancomycin 1,000 mg In 250 Sodium Chloride 0.9% 250 ml @ 125 mls/hr IVPB ONCE [facility] Rx#:[id number] Oral 540 600 Output: Urine 20 80 Other: Voiding Method Indwelling Catheter Indwelling Catheter Indwelling Catheter - Exam PHYSICAL EXAM: VITAL SIGNS: Reviewed. GENERAL: Well-developed in no acute distress. HEENT: Head is normocephalic. Pupils are equal, round. Sclerae anicteric. Mucous membranes of the mouth are moist. NECK: Supple. No JVD or thyromegaly RESPIRATORY: Respirations even and unlabored. Lungs diminished to auscultation bilaterally. CARDIO: Regular rate and rhythm. S1 and S2 heard. No murmur or gallops. EXTREMITIES: Normal range of motion. No clubbing or cyanosis. Peripheral pulses intact. Mild to moderate bilateral lower extremity edema NEURO: Orientated to person, time, mood is appropriate - Labs CBC & Chem 7: 03/14/22 08:31 03/14/22 08:31 Labs: Abnormal Lab Results - Last 24 Hours (Table) 03/13/22 03/13/22 03/14/22 Range/Units 16:24 20:18 05:49 WBC (3.8-10.6) k/uL RBC (3.80-5.40) m/uL Hgb (11.4-16.0) gm/dL Hct (34.0-46.0) % MCHC (31.0-37.0) g/dL RDW (11.5-15.5) % Plt Count (150-450) k/uL ESR (0-20) mm/hr Sodium (137-145) mmol/L BUN (7-17) mg/dL Creatinine (0.52-1.04) mg/dL Glucose (74-99) mg/dL POC Glucose (mg/dL) 179 H 185 H 127 H (75-99) mg/dL Calcium (8.4-10.2) mg/dL C-Reactive Protein (<1.0) mg/dL Total Protein (6.3-8.2) g/dL Albumin (3.5-5.0) g/dL Procalcitonin (0.02-0.09) ng/mL 03/14/22 03/14/22 03/14/22 Range/Units 08:31 08:31 08:31 WBC 23.9 H (3.8-10.6) k/uL RBC 3.32 L (3.80-5.40) m/uL Hgb 9.5 L (11.4-16.0) gm/dL Hct 31.2 L (34.0-46.0) % MCHC 30.3 L (31.0-37.0) g/dL RDW 19.0 H (11.5-15.5) % Plt Count 484 H (150-450) k/uL ESR 58 H (0-20) mm/hr Sodium 133 L (137-145) mmol/L BUN 55 H (7-17) mg/dL Creatinine 1.40 H (0.52-1.04) mg/dL Glucose 132 H (74-99) mg/dL POC Glucose (mg/dL) (75-99) mg/dL Calcium 6.9 L (8.4-10.2) mg/dL C-Reactive Protein 22.3 H (<1.0) mg/dL Total Protein 4.6 L (6.3-8.2) g/dL Albumin 2.1 L (3.5-5.0) g/dL Procalcitonin 3.32 H (0.02-0.09) ng/mL Microbiology - Last 24 Hours (Table) 03/12/22 17:14 Urine Culture - Preliminary Urine,Voided Gram Neg Bacilli 03/12/22 20:03 Blood Culture - Preliminary Blood No Growth after 24 hours Assessment and Plan Assessment: Atrial fibrillation with rapid ventricular rate Elevated troponin with non-ST [place] Acute on chronic kidney disease Plan: Discontinue IV Cardizem and continue with digoxin and Lopressor Myocardial infarction ruled out, elevated troponins probably secondary to A. fib RVR and renal disease Continue with telemetry monitoring Continue with all other current cardiac medications Further recommendations based on clinical course The above impression and plan of care have been discussed and directed by the signing physician. Lucia Fontana, nurse practitioner, acting as scribe for signing physician.
--- NOTE | 2022-03-14 11:55 | P.NPCON ---
History of Present Illness - Reason for Consult acute renal failure - History of Present Illness Reason for consultation: Acute kidney injury History of present illness: Patient is a 86-year-old female seen in renal consultation for acute kidney injury. Patient's creatinine on admission was near 1 and is 1.4 today. Patient presented from extended care facility with generalized weakness and shortness of breath. She was noted to be in A. fib with RVR and is currently maintained on Cardizem drip. She is also on antibiotics for pneumonia. Patient is not a very reliable historian. She is quite lethargic. Patient was admitted at [facility] earlier this month with ascending cholangitis and required temporary hemodialysis. On admission on 03/12/2022, patient did receive IV contrast for a CT angiogram which showed pulmonary infiltrates and findings of chronic CHF. There was also concern for pneumonia. No PE noted. Chest x-ray done today showed worsening bilateral infiltrates and small effusions. Patient's blood pressure overnight was as low as 88/56 and was 114/64 this morning. This morning. She is also receiving normal saline at 75 mL an hour. She is on 4 L nasal cannula. Urine cultures positive for gram-negative bacilli. Echocardiogram showed preserved ejection fraction with moderate mitral regurgitation. Vital signs are stable. General: Resting in bed. Lethargic. HEENT: Head exam is unremarkable. LUNGS: Breath sounds decreased. HEART: Irregular rate and rhythm. ABDOMEN: Soft, no distention. EXTREMITITES: 1+ edema. Past Medical History Past Medical History: Atrial Fibrillation, Heart Failure (Diastolic heart f ailure along with severe pulmonary hypertension), Diabetes Mellitus, Hypertension, Sleep Apnea/CPAP/BIPAP, Thyroid Disorder, Vascular Disorder History of Any Multi-Drug Resistant Organisms: None Reported Past Surgical History: Cholecystectomy Smoking Status: Former smoker Past Alcohol Use History: None Reported Past Drug Use History: None Reported - Past Family History Father History Unknown: Yes Mother History Unknown: Yes Medications and Allergies Home Medications Medication Instructions Recorded Confirmed Type RX: Apixaban [Eliquis] 5 mg PO BID 12/04/21 03/12/22 History RX: Atorvastatin Calcium [Lipitor] 80 mg PO HS 12/04/21 03/12/22 History RX: Brimonidine Tartrate [Alphagan 1 drop BOTH EYES Q12H 12/04/21 03/12/22 Histo ry P 0.2% Ophth Soln] RX: Digoxin [Digitek] 125 mcg PO MOWEFR 12/04/21 03/12/22 History RX: Levothyroxine Sodium 150 mcg PO DAILY 12/04/21 03/12/22 History [Synthroid] Acetaminophen Tab [Tylenol Tab] 500 mg PO Q6HR PRN 03/12/22 03/12/22 History Acetaminophen [Tylenol] 650 mg PO Q4H PRN MDD 3 GM 03/12/22 03/12/22 History Glucose Gel 40% 1 applicator PO DAILY PRN 03/12/22 03/12/22 History Hydrocodone/Acetaminophen 5-300 Mg 1 tab PO Q48H PRN 03/12/22 03/12/22 History INSULIN LISPRO (HumaLOG) [humaLOG] See Protocol SQ ACHS 03/12/22 03/12/22 History Metoprolol Tartrate [Lopressor] 50 mg PO TID 03/12/22 03/12/22 History Midodrine HCl [ProAmatine] 10 mg PO TID PRN 03/12/22 03/12/22 History Nephro-Gloria 0.8mg Tab 1 tab PO DAILY 03/12/22 03/12/22 History Patiromer Calcium Sorbitex 1 packet PO DAILY 03/12/22 03/12/22 History [Veltassa] RX: bisacodyL 10 mg RECTAL DAILY PRN 03/12/22 03/12/22 History Torsemide [Demadex] 10 mg PO DAILY 03/12/22 03/12/22 History polyethylene glycoL 3350 [Miralax] 17 gm PO DAILY 03/12/22 03/12/22 History Allergies Allergy/AdvReac Type Severity Reaction Status Date / Time No Known Allergies Allergy Verified 03/12/22 18:17 Physical Exam Vitals: Vital Signs Temp Pulse Resp BP Pulse Ox 03/14/22 08:00 98.2 F 105 H 16 114/64 98 03/14/22 04:25 87 17 88/56 94 L 03/13/22 22:45 78 18 93/50 93 L 03/13/22 20:00 97.5 F L 82 17 116/67 92 L 03/13/22 19:51 94 L 03/13/22 16:00 97.0 F L 122 H 18 107/64 92 L 03/13/22 14:00 16 Intake and Output 03/13/22 03/14/22 03/14/22 22:59 06:59 14:59 Intake Total 640 60 Output Total 40 40 Balance 600 20 Intake: Intake, IV Titration 100 Amount Piperacillin-Tazobactam 3 100 .375 gm In Sodium Chloride 0.9% 100 ml @ 25 mls/hr IVPB Q8HR [facility] Rx# :[id number] Oral 540 60 Output: Urine 40 40 Other: Voiding Method Indwelling Catheter Indwelling Catheter Indwelling Catheter Weight 84 kg Results - Lab Results Most recent lab results Calcium 6.9 mg/dL (8.4-10.2) L 03/14/22 08:31 Magnesium 1.6 mg/dL (1.6-2.3) 03/12/22 17:14 03/14/22 08:31 03/14/22 08:31 Assessment and Plan Plan: Assessment: 1. Acute kidney injury secondary to ATN secondary to hypotension and infection. Also component of contrast-induced acute kidney injury. Patient received IV contrast for CTA done 03/12/2022. Creatinine was 0.94 on admission and is 1.4 today. Oliguric. UA shows no proteinuria. 2. A. fib with RVR maintained on Cardizem drip. 3. Gram-negative UTI on antibiotics. 4. Chronic diastolic CHF with moderate mitral regurgitation. 5. Diabetes mellitus. 6. Acute hypoxic respiratory failure secondary to pneumonia. Plan: Diuretics discontinued. Maintain IV fluids for now. Check renal ultrasound. Avoid nephrotoxins. Continue to monitor renal function and urine output. Thank you for the consultation. I will continue to follow the patient with you during her hospital stay.
--- NOTE | 2022-03-14 12:38 | US ---
EXAMINATION TYPE: US kidneys/renal and bladder DATE OF EXAM: 03/14/2022 COMPARISON: NONE CLINICAL HISTORY: sahshank. EXAM MEASUREMENTS: Right Kidney: 9.5 x 4.1 x 4.4 cm Left Kidney: unable to visualize Limited exam as patient is unable to move. Patient has tube in RUQ that is connected to gallbladder p er patient's nurse. Right Kidney: No hydronephrosis or masses seen Left Kidney: unable to visualize Bladder: not imaged Incidental note is made of gallstones. IMPRESSION: 1. Limited examination 2. Visualized right kidney appears unremarkable. Left kidney could not be visualized. 3. Note is made of cholelithiasis.
--- NOTE | 2022-03-14 12:53 | P.PN ---
Subjective Progress Note Date: 03/14/22 HISTORY OF PRESENT ILLNESS 86-year-old female one of Dr. kimmie oro patient was known to have history of diabetes, hypertension, A. fib, CHF, PAD and chronic kidney disease who was hospitalized at [facility] from February 13 till March 06 for sepsis with acute ascending cholangitis with acute renal failure requiring hemodialysis which patient had dialysis catheter in the right IJ was dialyzed on regular basis for several days in [place]. Also was on antibiotics to treat UTI along with ascending cholangitis and sepsis according to family. Patient apparently has been declining for the last few month was transferred from [place] to [facility] for rehab and continued care of care. Patient found to have severe weakness tiredness with A. fib with RVR and worsening dyspnea and shortness of breath. EMS were called and [facility] with A. fib with RVR pulse rate was running in the 140s to 150. Patient was started on Cardizem drip a few extra problem was found at this time including on the chest x-ray and CTA found to have infiltrate in the right side with pleural effusion, troponin was elevated and patient was diagnosed with non-ST NE possible type II. Consult cardiology for her care also patient found to have white blood cell of 25,900 with hemoglobin of 9.9, she was not in any kidney failure at this time her urine was very positive for UTI and sepsis. Patient also found to have decubitus ulcer left buttocks has 3 time 3 inches stage III decubitus the right side had a curve stage II very large 1 almost 5 inches time to cross with a small area of the right ankle as well. Culture was done at this point patient was giving 1 dose of Rocephin initially we will do v ancomycin admit patient to the hospital. Had long discussion with the granddaughter for some information patient apparently had transcutaneous biliary catheter done for obstructive jaundice at the time with gallbladder with ascending cholangitis could not be treated at [place] with an infection this biliary catheter still draining bile at this time. With the family aware of patient's current condition specially with the pneumonia, sepsis, cardiomyopathy, family decided to have DO NOT RESUSCITATE CODE STATUS at this point. They're agreeable for treatment but to do any aggressive resuscitation. 03/14: Patient is doing slightly better today, shortness of breath has improved some, hypoxia is much better than before, still seen pulmonary and nephrology. Patient urine output down significantly had significant declining kidney function compared to yesterday. Patient also was in A. fib was started on Cardizem drip and will be seen cardiology today, echocardiogram was order is not nauseated this point. Had long discussion with the family yesterday the presently with all her comorbidity and up deciding to consult hospice initially for initial consultation. Patient will be continue on current management the family decided to do hospice by Tuesday or Tuesday we'll consult hospice and comfort care. Patient was seen infectious disease yesterday order x-ray of the pelvis and lumbar spine to check for any osteomyelitis which was negative. [facility] was consulted as well. Also patient was seen pulmonary and agree with the current management for hospital-acquired pneumonia. REVIEW OF SYSTEMS Constitutional: No fever, no chills, no night sweats. No weight change. Positive fatigue and tiredness with lethargy with daytime sleeping. EENT: No headache. No blurred vision or double vision, no loss of vision. No loss of Hearing, no ringing in the ears, no dizziness. No nasal drainage or congestion. No epistaxis. No sore throat. Lungs: Mild shortness of breath cough wheezes. Cardiovascular: Positive dyspnea with PND orthopnea palpitations and mild lighth eadedness and A. fib with RVR with CHF. Abdominal: Positive abdominal distention with slight discomfort transcutaneous biliary catheter at this point. : Positive indwelling catheter with irritation and discomfort. Musculoskeletal: No myalgias. No muscle weakness, no gait dysfunction, no frequent falls. No back pain. No neck pain. Integumentary: Positive wound on the buttocks area bilaterally worse on the left than the right side will use regular dressing and special mattress. Neurologic: No aphasia. No facial droop. No change in mentation. No head injury. No headache. No paralysis. No paresthesia. Psychiatric: No depression. No anxiety. No mood swings. Endocrine: No abnormal blood sugars. No weight change. No excessive sweating or thirst. No cold intolerance. SOCIAL HISTORY She quit smoking 30 years ago used to smoke half pack a day for 10 years, no code use, she is and has been cared by family lately has been in correction. FAMILY HISTORY Patient had 2 children one of them committed suicide another one had schizoaffective disorders. Patient was only child for her parents, her mother age 79 from breast cancer and father from esophageal cancer at age 79. PHYSICAL EXAMINATION Gen: This is elderly does not look in any respiratory distress. HEENT: Head is atraumatic, normocephalic. Pupils equal, round. Sclerae is anicteric. NECK: Supple. No JVD. No lymphadenopathy. No thyromegaly. LUNGS: Decrease breath some other acute fine rhonchi positive crackles in the bases with decreased breath sounds in the right side prison through. HEART: Irregular rhythm and rate S1-S2 positive S3 positive systolic murmur in the apex. ABDOMEN: Soft positive bowel sounds positive transcutaneous catheter in the right side biliary catheter, slight discomfort lower abdominal region area mostly suprapubic. EXTREMITIES: Right leg had a small ulcerated area one time 1 cm only stage II with slight decrease pulse in the dorsalis pedis bilaterally with trace edema worse on the right than the left side Back: She had decubitus ulcer on the left side measure 3 time 3 inches stage III, right side had curve with half horseshoe shape the middle is more superficial but the edges are deeper with the area almost 53 inches. NEUROLOGICAL: Patient is awake, alert and oriented x3. Cranial nerves 2 through 12 are grossly intact. ASSESSMENT AND PLAN 1. Severe dyspnea and shortness of breath: Most likely from A. fib with cardiomyopathy continue oxygen continue current management patient also has pneumonia and pleural effusion. She is less symptomatic today and feeling slightly better. 2 A. fib with RVR: Patient has been on Eliquis was on digoxin and metoprolol resume medication, pulse rate is much better controlled today. 3 bilateral pneumonia especially the right side with significant pleural effusion: Patient was started on antibiotic 1 g of Rocephin was giving waiting for final infectious disease for both decubitus and pneumonia for better manag ement. 4 right-sided pleural effusion: Reviewed chest x-ray apparently the pleural effusion is much better this point does not require any thoracentesis. 5 sepsis and UTI: Urine and urine culture was done we'll consult infectious disease patient was giving 1 g of Rocephin started vancomycin for now continue empiric treatment ~cultures back. 6 elevated troponin with non-ST NE possible2: Echocardiogram will be order continue medical management at this point. 7 severe decubitus ulcer: Infectious disease consultation and wound care will be done continue topical continue softer mattress at this point can continue IV antibiotics awaiting for culture as well. Wound care was consulted x-ray does not show any osteomyelitis continue current management. 8 severe ascending cholangitis with gallstone post transcutaneous biliary tube, continue current care at this point. 9 cardiopathy: Most likely ischemic and A. fib cardiomyopathy patient blood pressure was quite bit low could not tolerate medication about well and was taking ARB and ATIYA inhibitor which can be considered at this point. Still waiting for the final result of her echo for better management, also patient still seeing cardiology. 10 acute kidney injury with recent end-stage renal disease requiring hemodialysis at [place] for almost 3 weeks, kidney function is back to normal this point continue to watch her urine output carefully. Her kidney function started declining this time she is making less urine will be seen nephrology patient might decline in need to go back on dialysis. 11 type 2 diabetes: Patient will be continue on Accu-Chek with sliding scales coverage. Blood sugar has been better controlled as point. 12 hypothyroidism: Continue levothyroxine 150 g daily. 13 hyperlipidemia: Continue patient on atorvastatin 80 mg daily. CODE STATUS: DO NOT RESUSCITATE and family probably will meet with hospice for consultation on Tuesday. Objective - Vital Signs Vital signs: Vital Signs Temp 98.2 F 03/14/22 08:00 Pulse 105 H 03/14/22 08:00 Resp 16 03/14/22 08:00 BP 114/64 03/14/22 08:00 Pulse Ox 98 03/14/22 08:00 Intake & Output 03/13/22 03/14/22 03/14/22 18:59 06:59 18:59 Intake Total 898.667 700 Output Total 20 80 Balance 878.667 620 Weight 79.1 kg 84 kg Intake: Intake, IV Titration 358.667 100 Amount Diltiazem 125 mg In 108.667 Sodium Chloride 0.9% 100 ml @ 5 MG/HR 5 mls/hr IV .Q24H JACKIE Rx#:[id number] Piperacillin-Tazobactam 3 100 .375 gm In Sodium Chloride 0.9% 100 ml @ 25 mls/hr IVPB Q8HR JACKIE Rx# :[id number] Vancomycin 1,000 mg In 250 Sodium Chloride 0.9% 250 ml @ 125 mls/hr IVPB ONCE STA Rx#:[id number] Oral 540 600 Output: Urine 20 80 Other: Voiding Method Indwelling Catheter Indwelling Catheter Indwelling Catheter - Labs CBC & Chem 7: 03/14/22 08:31 03/14/22 08:31 Labs: Abnormal Lab Results - Last 24 Hours (Table) 03/13/22 03/13/22 03/13/22 Range/Units 11:30 16:24 20:18 WBC (3.8-10.6) k/uL RBC (3.80-5.40) m/uL Hgb (11.4-16.0) gm/dL Hct (34.0-46.0) % MCHC (31.0-37.0) g/dL RDW (11.5-15.5) % Plt Count (150-450) k/uL ESR (0-20) mm/hr Sodium (137-145) mmol/L BUN (7-17) mg/dL Creatinine (0.52-1.04) mg/dL Glucose (74-99) mg/dL POC Glucose (mg/dL) 169 H 179 H 185 H (75-99) mg/dL Calcium (8.4-10.2) mg/dL C-Reactive Protein (<1.0) mg/dL Total Protein (6.3-8.2) g/dL Albumin (3.5-5.0) g/dL 03/14/22 03/14/22 03/14/22 Range/Units 05:49 08:31 08:31 WBC 23.9 H (3.8-10.6) k/uL RBC 3.32 L (3.80-5.40) m/uL Hgb 9.5 L (11.4-16.0) gm/dL Hct 31.2 L (34.0-46.0) % MCHC 30.3 L (31.0-37.0) g/dL RDW 19.0 H (11.5-15.5) % Plt Count 484 H (150-450) k/uL ESR 58 H (0-20) mm/hr Sodium 133 L (137-145) mmol/L BUN 55 H (7-17) mg/dL Creatinine 1.40 H (0.52-1.04) mg/dL Glucose 132 H (74-99) mg/dL POC Glucose (mg/dL) 127 H (75-99) mg/dL Calcium 6.9 L (8.4-10.2) mg/dL C-Reactive Protein 22.3 H (<1.0) mg/dL Total Protein 4.6 L (6.3-8.2) g/dL Albumin 2.1 L (3.5-5.0) g/dL Microbiology - Last 24 Hours (Table) 03/12/22 17:14 Urine Culture - Preliminary Urine,Voided Gram Neg Bacilli 03/12/22 20:03 Blood Culture - Preliminary Blood No Growth after 24 hours
--- NOTE | 2022-03-14 13:43 | P.GSCN ---
History of Present Illness Consult date: 03/14/22 History of present illness: REASON FOR CONSULTATION: Pressure ulcer HISTORY OF PRESENT ILLNESS: The patient is a 86 year old female admitted for generalized weakness 3 days ago. Work-up demonstrated atrial fibrillation with new rapid ventricular response 2 days ago. She had cholangitis and was treated with drainage procedure at an outside institution over 3 weeks ago per hospital records. During hospitalization, patient was being seen by infections disease. For findings of pressure ulcer, consultation for pressure ulcer debridement was made per infectious disease team. Patient is very hard of hearing and difficult historian. Records obtained by chart. Patient has a sitter at bedside. She has PRAFO boots. No reports of abdominal or sacral pain. She is currently on Eliquis. PAST MEDICAL HISTORY: See list and reviewed PAST SURGICAL HISTORY: See list and reviewed MEDICATIONS: See list and reviewed ALLERGIES: See list and reviewed SOCIAL HISTORY: See list and reviewed FAMILY HISTORY: See list and reviewed REVIEW OF ORGAN SYSTEMS: (per patient chart) CONSTITUTIONAL: No fevers or chills. No recent weight loss. EYES: No trouble with vision. No glasses. Has cataracts. HEENT: Has difficulties with hearing. No nosebleeds. No difficulty swallowing. RESPIRATORY: No troubles with breathing or dyspnea on exertion. Has sleep apnea. CARDIOVASCULAR: Has atrial fibrillation. Has hyperlipidemia. Has hypertensive heart disease with congestive heart failure. Has severe pulmonary hypertension. GASTROINTESTINAL: Has chronic constipation. GENITOURINARY: Denies any blood in urine or increased urinary frequency. Has renal insufficiency. NEUROLOGICAL: No numbness or tingling along the distal extremities. No seizure disorders or headaches. MUSCULOSKELETAL: Has back pain, stiffness or joint arthritis. SKIN: No current skin cancer. No rash. PSYCHIATRIC: Has dementia. ENDOCRINE: Has hypothyroidism. Has diabetes type II insulin dependent. HEME/LYMPHATIC: On chronic blood thinners. ALLERGY/IMMUNOLOGY: No immunoglobulin therapy. No immune deficiencies. BREAST: No current breast lumps, pain or nipple discharge. PHYSICAL EXAM: VITALS: Reviewed CONSTITUTIONAL: Well developed and in no acute distress. EYES: Conjuctivae without sclera icterus. Extraocular movements grossly intact. HEAD, EARS, NOSE, THROAT: Moist buccal mucosa. Head is atraumatic, normocephalic. Hears conversational speech. No nasal drainage. NECK: Supple. No JV distention. No thyroidomegaly. RESPIRATORY: Non-labored respirations and equal bilateral excursions. No gross wheezes. CARDIOVASCULAR: Palpable 2+ radial pulses. ABDOMEN: Nontender. No peritonitis. LYMPH: No neck lymphadenopathy. MUSCULOSKELETAL: Has bilateral PRAFO boots. SKIN: Images reviewed of right buttock wound 7-cm diameter with moderate fibrinous exudate. NEUROLOGIC: Cranial nerves II through XII grossly intact. No focal or lateralizing signs. PSYCH: Alert to person. CLINCAL LABS: Reviewed. WBC over 25,000 down to 23,000 IMAGING: Independently reviewed pelvic xray with large fecal retention in rectum. This is my independent interpretation. RADIOLOGY: Report reviewed pelvic xray without osteomyelitis. ASSESSMENT: 1. Sepsis 2. Dementia 3. Sacral ulcer stage IV 4. Atrial fibrillation with rapid ventricular response PLAN: 1. Patient has stage IV sacral ulcer. She is currently on Eliquis. To decrease bleeding, Eliquis should be held for 48 hrs prior to surgical intervention. 2. Management of sepsis per infectious disease ADVANCE DIRECTIVE: Thank you for this kind consultation. Past Medical History Past Medical History: Atrial Fibrillation, Heart Failure (Diastolic heart failure along with severe pulmonary hypertension), Diabetes Mellitus, Hypertension, Sleep Apnea/CPAP/BIPAP, Thyroid Disorder, Vascular Disorder History of Any Multi-Drug Resistant Organisms: None Reported Past Surgical History: Cholecystectomy Smoking Status: Former smoker Past Alcohol Use History: None Reported Past Drug Use History: None Reported - Past Family History Father History Unknown: Yes Mother History Unknown: Yes Medications and Allergies Home Medications Medication Instructions Recorded Confirmed Type Apixaban [Eliquis] 5 mg PO BID 12/04/21 03/12/22 History Atorvastatin Calcium [Lipitor] 80 mg PO HS 12/04/21 03/12/22 History Brimonidine Tartrate [Alphagan P 1 drop BOTH EYES Q12H 12/04/21 03/12/22 History 0.2% Ophth Soln] Digoxin [Digitek] 125 mcg PO MOWEFR 12/04/21 03/12/22 History Levothyroxine Sodium [Synthroid] 150 mcg PO DAILY 12/04/21 03/12/22 History Acetaminophen Tab [Tylenol Tab] 500 mg PO Q6HR PRN 03/12/22 03/12/22 History Acetaminophen [Tylenol] 650 mg PO Q4H PRN MDD 3 GM 03/12/22 03/12/22 History Glucose Gel 40% 1 applicator PO DAILY PRN 03/12/22 03/12/22 History Hydrocodone/Acetaminophen 5-300 Mg 1 tab PO Q48H PRN 03/12/22 03/12/22 History INSULIN LISPRO (HumaLOG) [humaLOG] See Protocol SQ ACHS 03/12/22 03/12/22 History Metoprolol Tartrate [Lopressor] 50 mg PO TID 03/12/22 03/12/22 History Midodrine HCl [ProAmatine] 10 mg PO TID PRN 03/12/22 03/12/22 History Nephro-Gloria 0.8mg Tab 1 tab PO DAILY 03/12/22 03/12/22 History Patiromer Calcium Sorbitex 1 packet PO DAILY 03/12/22 03/12/22 History [Veltassa] Torsemide [Demadex] 10 mg PO DAILY 03/12/22 03/12/22 History bisacodyL 10 mg RECTAL DAILY PRN 03/12/22 03/12/22 History polyethylene glycoL 3350 [Miralax] 17 gm PO DAILY 03/12/22 03/12/22 History Allergies Allergy/AdvReac Type Severity Reaction Status Date / Time No Known Allergies Allergy Verified 03/12/22 18:17 Surgical - Exam Vital Signs Temp Pulse Resp BP Pulse Ox 97.5 F L 138 H 20 115/70 95 03/12/22 16:26 03/12/22 16:26 03/12/22 16:26 03/12/22 16:26 03/12/22 16:26 Results - Labs 03/14/22 08:31 03/14/22 08:31 Abnormal Lab Results - Last 24 Hours (Table) 03/13/22 03/13/22 03/14/22 Range/Units 16:24 20:18 05:49 WBC (3.8-10.6) k/uL RBC (3.80-5.40) m/uL Hgb (11.4-16.0) gm/dL Hct (34.0-46.0) % MCHC (31.0-37.0) g/dL RDW (11.5-15.5) % Plt Count (150-450) k/uL ESR (0-20) mm/hr Sodium (137-145) mmol/L BUN (7-17) mg/dL Creatinine (0.52-1.04) mg/dL Glucose (74-99) mg/dL POC Glucose (mg/dL) 179 H 185 H 127 H (75-99) mg/dL Calcium (8.4-10.2) mg/dL C-Reactive Protein (<1.0) mg/dL Total Protein (6.3-8.2) g/dL Albumin (3.5-5.0) g/dL Procalcitonin (0.02-0.09) ng/mL 03/14/22 03/14/22 03/14/22 Range/Units 08:31 08:31 08:31 WBC 23.9 H (3.8-10.6) k/uL RBC 3.32 L (3.80-5.40) m/uL Hgb 9.5 L (11.4-16.0) gm/dL Hct 31.2 L (34.0-46.0) % MCHC 30.3 L (31.0-37.0) g/dL RDW 19.0 H (11.5-15.5) % Plt Count 484 H (150-450) k/uL ESR 58 H (0-20) mm/hr Sodium 133 L (137-145) mmol/L BUN 55 H (7-17) mg/dL Creatinine 1.40 H (0.52-1.04) mg/dL Glucose 132 H (74-99) mg/dL POC Glucose (mg/dL) (75-99) mg/dL Calcium 6.9 L (8.4-10.2) mg/dL C-Reactive Protein 22.3 H (<1.0) mg/dL Total Protein 4.6 L (6.3-8.2) g/dL Albumin 2.1 L (3.5-5.0) g/dL Procalcitonin 3.32 H (0.02-0.09) ng/mL 03/14/22 Range/Units 11:46 WBC (3.8-10.6) k/uL RBC (3.80-5.40) m/uL Hgb (11.4-16.0) gm/dL Hct (34.0-46.0) % MCHC (31.0-37.0) g/dL RDW (11.5-15.5) % Plt Count (150-450) k/uL ESR (0-20) mm/hr Sodium (137-145) mmol/L BUN (7-17) mg/dL Creatinine (0.52-1.04) mg/dL Glucose (74-99) mg/dL POC Glucose (mg/dL) 174 H (75-99) mg/dL Calcium (8.4-10.2) mg/dL C-Reactive Protein (<1.0) mg/dL Total Protein (6.3-8.2) g/dL Albumin (3.5-5.0) g/dL Procalcitonin (0.02-0.09) ng/mL Microbiology - Last 24 Hours (Table) 03/12/22 17:14 Urine Culture - Preliminary Urine,Voided Gram Neg Bacilli 03/12/22 20:03 Blood Culture - Preliminary Blood No Growth after 24 hours Diabetes panel 03/14/22 Range/Units 08:31 Sodium 133 L (137-145) mmol/L Potassium 3.9 (3.5-5.1) mmol/L Chloride 101 (98-107) mmol/L Carbon Dioxide 24 (22-30) mmol/L BUN 55 H (7-17) mg/dL Creatinine 1.40 H (0.52-1.04) mg/dL Glucose 132 H (74-99) mg/dL Calcium 6.9 L (8.4-10.2) mg/dL AST 27 (14-36) U/L ALT 12 (4-34) U/L Alkaline Phosphatase 111 (38-126) U/L Total Protein 4.6 L (6.3-8.2) g/dL Albumin 2.1 L (3.5-5.0) g/dL Calcium panel 03/14/22 Range/Units 08:31 Calcium 6.9 L (8.4-10.2) mg/dL Albumin 2.1 L (3.5-5.0) g/dL Pituitary panel 03/14/22 Range/Units 08:31 Sodium 133 L (137-145) mmol/L Potassium 3.9 (3.5-5.1) mmol/L Chloride 101 (98-107) mmol/L Carbon Dioxide 24 (22-30) mmol/L BUN 55 H (7-17) mg/dL Creatinine 1.40 H (0.52-1.04) mg/dL Glucose 132 H (74-99) mg/dL Calcium 6.9 L (8.4-10.2) mg/dL Adrenal panel 03/14/22 Range/Units 08:31 Sodium 133 L (137-145) mmol/L Potassium 3.9 (3.5-5.1) mmol/L Chloride 101 (98-107) mmol/L Carbon Dioxide 24 (22-30) mmol/L BUN 55 H (7-17) mg/dL Creatinine 1.40 H (0.52-1.04) mg/dL Glucose 132 H (74-99) mg/dL Calcium 6.9 L (8.4-10.2) mg/dL Total Bilirubin 0.6 (0.2-1.3) mg/dL AST 27 (14-36) U/L ALT 12 (4-34) U/L Alkaline Phosphatase 111 (38-126) U/L Total Protein 4.6 L (6.3-8.2) g/dL Albumin 2.1 L (3.5-5.0) g/dL
[2022-03-14] MEDS ORDERED: FUROSEMIDE 10 MG/ML 10 ML VIAL IV STA (14:17)
[2022-03-14 16:15] LABS: Glucose,Whole Blood 182 mg/dL (75-99)
[2022-03-14 19:55] LABS: Glucose,Whole Blood 190 mg/dL (75-99)
[2022-03-14] MEDS: ATORVASTATIN 80 MG TAB PO SCH (20:34)
--- NOTE | 2022-03-14 23:10 | P.PN ---
Subjective Progress Note Date: 03/14/22 Principal diagnosis: Possible pneumonia and sacral pressure ulcer Patient is a 86-year-old female with multiple comorbidities and recent prolonged stay at [facility] for biliary sepsis requiring: Cholecystotomy tube placement subsequently has been the mcfp and the patient has developed stage IV sacral pressure presented to the hospital for evaluation of increasing shortness of breath, with concern for possible CHF/pneumonia. On today's evaluation and that is 03/14/2022, the patient is afebrile, the patient is hemodynamically stable, she is breathing slightly comfortably no chest pain or shortness of breath occasional cough no abdominal pain denies any worsening pain to the sacral wound area Objective - Vital Signs Vital signs: Vital Signs Temp 98.0 F 03/14/22 12:44 Pulse 102 H 03/14/22 12:44 Resp 18 03/14/22 13:37 BP 99/68 03/14/22 12:44 Pulse Ox 95 03/14/22 12:44 Intake & Output 03/13/22 03/14/22 03/14/22 18:59 06:59 18:59 Intake Total 898.667 700 66.333 Output Total 20 80 Balance 878.667 620 66.333 Weight 79.1 kg 84 kg Intake: Intake, IV Titration 358.667 100 66.333 Amount Diltiazem 125 mg In 108.667 66.333 Sodium Chloride 0.9% 100 ml @ 5 MG/HR 5 mls/hr IV .Q24H [facility] Rx#:[id number] Piperacillin-Tazobactam 3 100 .375 gm In Sodium Chloride 0.9% 100 ml @ 25 mls/hr IVPB Q8HR [facility] Rx# :[id number] Vancomycin 1,000 mg In 250 Sodium Chloride 0.9% 250 ml @ 125 mls/hr IVPB [facility] Rx#:[id number] Oral 540 600 Output: Urine 20 80 Other: Voiding Method Indwelling Catheter Indwelling Catheter Indwelling Catheter - Exam GENERAL DESCRIPTION: An elderly female lying in bed in no distress RESPIRATORY SYSTEM: Unlabored breathing , decreased breath sounds at bases HEART: S1 S2 regular rate and rhythm , ABDOMEN: Soft , no tenderness EXTREMITIES: No edema feet - Labs CBC & Chem 7: 03/14/22 08:31 03/14/22 08:31 Labs: Abnormal Lab Results - Last 24 Hours (Table) 03/13/22 03/13/22 03/14/22 Range/Units 16:24 20:18 05:49 WBC (3.8-10.6) k/uL RBC (3.80-5.40) m/uL Hgb (11.4-16.0) gm/dL Hct (34.0-46.0) % MCHC (31.0-37.0) g/dL RDW (11.5-15.5) % Plt Count (150-450) k/uL ESR (0-20) mm/hr Sodium (137-145) mmol/L BUN (7-17) mg/dL Creatinine (0.52-1.04) mg/dL Glucose (74-99) mg/dL POC Glucose (mg/dL) 179 H 185 H 127 H (75-99) mg/dL Calcium (8.4-10.2) mg/dL C-Reactive Protein (<1.0) mg/dL Total Protein (6.3-8.2) g/dL Albumin (3.5-5.0) g/dL Procalcitonin (0.02-0.09) ng/mL 03/14/22 03/14/22 03/14/22 Range/Units 08:31 08:31 08:31 WBC 23.9 H (3.8-10.6) k/uL RBC 3.32 L (3.80-5.40) m/uL Hgb 9.5 L (11.4-16.0) gm/dL Hct 31.2 L (34.0-46.0) % MCHC 30.3 L (31.0-37.0) g/dL RDW 19.0 H (11.5-15.5) % Plt Count 484 H (150-450) k/uL ESR 58 H (0-20) mm/hr Sodium 133 L (137-145) mmol/L BUN 55 H (7-17) mg/dL Creatinine 1.40 H (0.52-1.04) mg/dL Glucose 132 H (74-99) mg/dL POC Glucose (mg/dL) (75-99) mg/dL Calcium 6.9 L (8.4-10.2) mg/dL C-Reactive Protein 22.3 H (<1.0) mg/dL Total Protein 4.6 L (6.3-8.2) g/dL Albumin 2.1 L (3.5-5.0) g/dL Procalcitonin 3.32 H (0.02-0.09) ng/mL 03/14/22 Range/Units 11:46 WBC (3.8-10.6) k/uL RBC (3.80-5.40) m/uL Hgb (11.4-16.0) gm/dL Hct (34.0-46.0) % MCHC (31.0-37.0) g/dL RDW (11.5-15.5) % Plt Count (150-450) k/uL ESR (0-20) mm/hr Sodium (137-145) mmol/L BUN (7-17) mg/dL Creatinine (0.52-1.04) mg/dL Glucose (74-99) mg/dL POC Glucose (mg/dL) 174 H (75-99) mg/dL Calcium (8.4-10.2) mg/dL C-Reactive Protein (<1.0) mg/dL Total Protein (6.3-8.2) g/dL Albumin (3.5-5.0) g/dL Procalcitonin (0.02-0.09) ng/mL Microbiology - Last 24 Hours (Table) 03/12/22 17:14 Urine Culture - Preliminary Urine,Voided Gram Neg Bacilli 03/12/22 20:03 Blood Culture - Preliminary Blood No Growth after 24 hours Assessment and Plan (1) Leukocytosis Current Visit: Yes Status: Acute Code(s): D72.829 - ELEVATED WHITE BLOOD CELL COUNT, UNSPECIFIED SNOMED Code(s): 640226468 Plan: 1patient with a stage IV sacral pressure ulcer with slough tissue however no significant surrounding redness underlying second infection less likely but not excluded patient benefit from surgical debridement for general surgery be consulted, for now local wound care with the Santyl followed by moist dressing to be changed daily and keep the area of the pressure. 2patient with increasing shortness of breath abnormal x-ray and a CT more likely CHF underlying pneumonia less likely but not excluded. 3 patient to continue with Zosyn. 4patient did have elevated CRP and procalcitonin reason possibility of component of pneumonia. 5sputum for gram stain and culture. 6patient has been evaluated by general surgery recommended holding Eliquis before surgical debridement Time with Patient: Less than 30
[2022-03-15] MEDS: HYDROcodone/APAP 5-325MG 1 EACH TAB PO PRN ×4 (04:09→17:19)
[2022-03-15 04:59] LABS: Glucose,Whole Blood 111 mg/dL (75-99)
[2022-03-15] MEDS: SODIUM CHLORIDE 0.9% 1,000 ML IV SCH ×2 (05:28→18:21)
[2022-03-15] MEDS: INSULIN ASPART (NovoLOG) 100 UNIT/ML VIAL SQ SCH ×4 (06:23→19:59)
[2022-03-15] MEDS: LEVOTHYROXINE 75 MCG TAB PO SCH (06:24)
[2022-03-15] MEDS: PANTOPRAZOLE 40 MG TABLET PO SCH (06:24)
[2022-03-15 06:31] LABS: Glucose,Whole Blood 107 mg/dL (75-99)
[2022-03-15] MEDS: polyethylene glycoL 3350 17 GM POWD.PACK PO SCH (09:08)
[2022-03-15] MEDS: PIPERACILLIN-TAZOBACTAM 3.375 GM in SODIUM CHLORIDE 0.9% 100 ML IVPB SCH (09:08)
[2022-03-15] MEDS: APIXABAN 5 MG TAB PO SCH (09:09)
[2022-03-15] MEDS: METOPROLOL TARTRATE 50 MG TAB PO SCH ×3 (09:09→19:59)
[2022-03-15] MEDS: BRIMONIDINE TARTRATE 0.2% DROPS 5 ML BTL BOTH EYES SCH ×2 (09:09→19:59)
[2022-03-15] MEDS: COLLAGENASE 250 UNIT/GM OINTMENT 30 GM TUBE TOPICAL SCH (09:11)
[2022-03-15] MEDS: NON FORMULARY DRUG (Patiromer Calcium Sorbitex [Veltassa] 8.4 GM Packet) PO SCH (09:18)
[2022-03-15 09:27] LABS: Anisocytosis Slight; HGB 8.8 gm/dL (11.4-16.0); Hypochromasia Marked; MCH 28.3 pg (25.0-35.0); MCHC 29.4 g/dL (31.0-37.0); MCV 96.4 fL (80.0-100.0); Macrocytosis Slight; Mean Platelet Volume 7.2; Platelet Count 422 k/uL (150-450); Poikilocytosis Moderate; RBC 3.11 m/uL (3.80-5.40); RDW 18.8 % (11.5-15.5); WBC 20.8 k/uL (3.8-10.6)
[2022-03-15 09:50] LABS: Calcium 6.5 mg/dL (8.4-10.2); Magnesium 1.8 mg/dL (1.6-2.3); Potassium 3.9 mmol/L (3.5-5.1); Total Bilirubin 0.6 mg/dL (0.2-1.3); Total Protein 4.7 g/dL (6.3-8.2)
--- NOTE | 2022-03-15 10:00 | P.PN ---
Subjective Patient is seen in follow-up for acute kidney injury. Creatinine 1.74 today. Oliguric. Currently on normal saline at 75 mL an hour. Also received 80 mg IV Lasix yesterday. Patient is somewhat confused. She is hard of hearing. Blood pressure stable. 2 L nasal cannula. Cardizem drip stopped. On oral Lopressor. Vital signs are stable. General: No acute distress. HEENT: Head exam is unremarkable. LUNGS: Breath sounds decreased. HEART: Rate and Rhythm are regular. ABDOMEN: Soft, no distention. Drain noted. EXTREMITITES: Trace edema. Objective - Vital Signs Vital signs: Vital Signs Temp 97.0 F L 03/15/22 09:19 Pulse 115 H 03/15/22 09:19 Resp 18 03/15/22 09:19 BP 112/66 03/15/22 09:19 Pulse Ox 96 03/15/22 09:19 Intake & Output 03/14/22 03/15/22 03/15/22 18:59 06:59 18:59 Intake Total 66.333 Output Total 30 Balance 36.333 Intake: Intake, IV Titration 66.333 Amount Diltiazem 125 mg In 66.333 Sodium Chloride 0.9% 100 ml @ 5 MG/HR 5 mls/hr IV .Q24H [facility] Rx#:[id number] Output: Urine 30 Other: Voiding Method Indwelling Catheter Indwelling Catheter Indwelling Catheter # Bowel Movements 2 - Labs CBC & Chem 7: 03/15/22 08:58 03/15/22 08:58 Labs: Abnormal Lab Results - Last 24 Hours (Table) 03/14/22 03/14/22 03/14/22 Range/Units 08:31 08:31 11:46 WBC (3.8-10.6) k/uL RBC (3.80-5.40) m/uL Hgb (11.4-16.0) gm/dL Hct (34.0-46.0) % MCHC (31.0-37.0) g/dL RDW (11.5-15.5) % ESR 58 H (0-20) mm/hr Sodium (137-145) mmol/L Carbon Dioxide (22-30) mmol/L BUN (7-17) mg/dL Creatinine (0.52-1.04) mg/dL POC Glucose (mg/dL) 174 H (75-99) mg/dL Calcium (8.4-10.2) mg/dL Total Protein (6.3-8.2) g/dL Albumin (3.5-5.0) g/dL Procalcitonin 3.32 H (0.02-0.09) ng/mL 03/14/22 03/14/22 03/15/22 Range/Units 16:13 19:46 04:50 WBC (3.8-10.6) k/uL RBC (3.80-5.40) m/uL Hgb (11.4-16.0) gm/dL Hct (34.0-46.0) % MCHC (31.0-37.0) g/dL RDW (11.5-15.5) % ESR (0-20) mm/hr Sodium (137-145) mmol/L Carbon Dioxide (22-30) mmol/L BUN (7-17) mg/dL Creatinine (0.52-1.04) mg/dL POC Glucose (mg/dL) 182 H 190 H 111 H (75-99) mg/dL Calcium (8.4-10.2) mg/dL Total Protein (6.3-8.2) g/dL Albumin (3.5-5.0) g/dL Procalcitonin (0.02-0.09) ng/mL 03/15/22 03/15/22 03/15/22 Range/Units 06:22 08:58 08:58 WBC 20.8 H (3.8-10.6) k/uL RBC 3.11 L (3.80-5.40) m/uL Hgb 8.8 L (11.4-16.0) gm/dL Hct 30.0 L (34.0-46.0) % MCHC 29.4 L (31.0-37.0) g/dL RDW 18.8 H (11.5-15.5) % ESR (0-20) mm/hr Sodium 133 L (137-145) mmol/L Carbon Dioxide 19 L (22-30) mmol/L BUN 57 H (7-17) mg/dL Creatinine 1.74 H (0.52-1.04) mg/dL POC Glucose (mg/dL) 107 H (75-99) mg/dL Calcium 6.5 L (8.4-10.2) mg/dL Total Protein 4.7 L (6.3-8.2) g/dL Albumin 2.0 L (3.5-5.0) g/dL Procalcitonin (0.02-0.09) ng/mL Microbiology - Last 24 Hours (Table) 03/12/22 20:03 Blood Culture - Preliminary Blood No Growth after 48 hours 03/12/22 17:14 Urine Culture - Preliminary Urine,Voided Gram Neg Bacilli Assessment and Plan Plan: Assessment: 1. Acute kidney injury secondary to ATN secondary to hypotension and infection. Also component of contrast-induced acute kidney injury. Patient received IV contrast for CTA done 03/12/2022. Creatinine was 0.94 on admission and is 1.74 today. Oliguric. UA shows no proteinuria. No hydronephrosis noted on kidney ultrasound. Left kidney could not be visualized. 2. A. fib with RVR status post Cardizem drip. On oral Lopressor and anticoagulation. 3. Gram-negative UTI on antibiotics. 4. Chronic diastolic CHF with moderate mitral regurgitation. 5. Diabetes mellitus. 6. Acute hypoxic respiratory failure secondary to pneumonia. 7. Metabolic acidosis secondary to acute kidney injury and IV fluids. Plan: Maintain IV fluids. Status post 80 mg IV Lasix given 03/14/2022. Avoid nephrotoxins. Add oral bicarb. Follow-up urine culture. Check iron studies. If no improvement in renal function and urine output in the next 24 hours, will need to initiate renal replacement therapy. Discussed with the nurse. Will discuss with the family.
[2022-03-15] MEDS ORDERED: CALCIUM GLUCONATE IN NACL 1 GM in SALINE 1 100ML.BAG IVPB ONE (11:00)
[2022-03-15 11:18] LABS: Glucose,Whole Blood 119 mg/dL (75-99)
--- NOTE | 2022-03-15 11:51 | P.PN ---
Subjective Progress Note Date: 03/15/22 CHIEF COMPLAINT: Pressure ulcer HISTORY OF PRESENT ILLNESS: The patient is a 86 year old female admitted for generalized weakness 3 days ago. Work-up demonstrated atrial fibrillation with new rapid ventricular response 2 days ago. She had cholangitis and was treated with drainage procedure at an outside institution over 3 weeks ago per hospital records. Patient also evidence with acute kidney injury. Nephrology is following and patient may require renal replacement. She also had atrial flutter ablation with rapid ventricular response. She is off the Cardizem drip on oral Lopressor. Surgical service following in regards to her pressure ulcer. Afebrile. Heart rate 115. Hypotension improved. WBC 20.8 trending down. hemoglobin 8.8 platelets 422 sodium 133 creatinine 1.74. Total bili 0.6 AST 30 ALT 12 alk phos 113 abdominal ultrasound with cholelithiasis. PHYSICAL EXAM: VITAL SIGNS: Reviewed. GENERAL: Well-developed in no acute distress. HEENT: No sclera icterus. Extraocular movements grossly intact. Moist buccal mucosa. Head is atraumatic, normocephalic. ABDOMEN: Soft. Nondistended. Nontender. NEUROLOGIC: Confused Skin: Right buttocks 7 cm diameter wound with granulation tissue. There is a flap of skin noted. Also a smaller ulceration noted on the left buttocks about 3 cm in diameter with granulation tissue. No surrounding redness noted. ASSESSMENT: 1. Decubitus pressure ulcer of the right and left buttocks with healthy granulation tissue 2. Ascending cholangitis with gallstones status post drainage tube at outside facility 3. Acute kidney injury 4. Sepsis PLAN: -No surgical intervention planned -Continue local wound care -Keep pressure off of the wound -Continue supportive care -Antibiotics per ID service Physician Teacher Visually Impaired note has been reviewed by physician. Signing provider agrees with the documented findings, assessment, and plan of care. Objective - Vital Signs Vital signs: Vital Signs Temp 97.0 F L 03/15/22 09:19 Pulse 115 H 03/15/22 09:19 Resp 18 03/15/22 09:19 BP 112/66 03/15/22 09:19 Pulse Ox 96 03/15/22 09:19 Intake & Output 03/14/22 03/15/22 03/15/22 18:59 06:59 18:59 Intake Total 66.333 1000 Output Total 30 Balance 36.333 1000 Intake: Intake, IV Titration 66.333 1000 Amount Diltiazem 125 mg In 66.333 Sodium Chloride 0.9% 100 ml @ 5 MG/HR 5 mls/hr IV .Q24H [facility] Rx#:[id number] Piperacillin-Tazobactam 3 100 .375 gm In Sodium Chloride 0.9% 100 ml @ 25 mls/hr IVPB Q8HR [facility] Rx# :[id number] Sodium Chloride 0.9% 1, 900 000 ml @ 75 mls/hr IV . [id number] [facility] Rx#:[id number] Output: Urine 30 Other: Voiding Method Indwelling Catheter Indwelling Catheter Indwelling Catheter # Bowel Movements 2 - Labs CBC & Chem 7: 03/15/22 08:58 03/15/22 08:58 Labs: Abnormal Lab Results - Last 24 Hours (Table) 03/14/22 03/14/22 03/14/22 Range/Units 11:46 16:13 19:46 WBC (3.8-10.6) k/uL RBC (3.80-5.40) m/uL Hgb (11.4-16.0) gm/dL Hct (34.0-46.0) % MCHC (31.0-37.0) g/dL RDW (11.5-15.5) % Sodium (137-145) mmol/L Carbon Dioxide (22-30) mmol/L BUN (7-17) mg/dL Creatinine (0.52-1.04) mg/dL POC Glucose (mg/dL) 174 H 182 H 190 H (75-99) mg/dL Calcium (8.4-10.2) mg/dL Total Protein (6.3-8.2) g/dL Albumin (3.5-5.0) g/dL 03/15/22 03/15/22 03/15/22 Range/Units 04:50 06:22 08:58 WBC 20.8 H (3.8-10.6) k/uL RBC 3.11 L (3.80-5.40) m/uL Hgb 8.8 L (11.4-16.0) gm/dL Hct 30.0 L (34.0-46.0) % MCHC 29.4 L (31.0-37.0) g/dL RDW 18.8 H (11.5-15.5) % Sodium (137-145) mmol/L Carbon Dioxide (22-30) mmol/L BUN (7-17) mg/dL Creatinine (0.52-1.04) mg/dL POC Glucose (mg/dL) 111 H 107 H (75-99) mg/dL Calcium (8.4-10.2) mg/dL Total Protein (6.3-8.2) g/dL Albumin (3.5-5.0) g/dL 03/15/22 03/15/22 Range/Units 08:58 11:17 WBC (3.8-10.6) k/uL RBC (3.80-5.40) m/uL Hgb (11.4-16.0) gm/dL Hct (34.0-46.0) % MCHC (31.0-37.0) g/dL RDW (11.5-15.5) % Sodium 133 L (137-145) mmol/L Carbon Dioxide 19 L (22-30) mmol/L BUN 57 H (7-17) mg/dL Creatinine 1.74 H (0.52-1.04) mg/dL POC Glucose (mg/dL) 119 H (75-99) mg/dL Calcium 6.5 L (8.4-10.2) mg/dL Total Protein 4.7 L (6.3-8.2) g/dL Albumin 2.0 L (3.5-5.0) g/dL Microbiology - Last 24 Hours (Table) 03/12/22 20:03 Blood Culture - Preliminary Blood No Growth after 48 hours 03/12/22 17:14 Urine Culture - Preliminary Urine,Voided Gram Neg Bacilli
[2022-03-15] MEDS: SODIUM BICARBONATE TAB 650 MG TAB PO SCH ×2 (11:53→19:59)
--- NOTE | 2022-03-15 12:09 | P.PN ---
Subjective This is a pleasant 86-year-old female past medical history significant for persistent atrial fibrillation on Eliquis, hypertension, type 2 diabetes, hypothyroidism, hyperlipidemia. She follows in the office with Dr. Reid. We have been asked to see in consultation for atrial fibrillation with RVR and elevated troponin. generalized weakness, tiredness, worsening shortness of breath. She was diagnosed with acute right lower lobe pneumonia and acute kidney injury. Echocardiogram revealed EF of 5560%. Moderate LVH, moderate MR Patient seen and examined at bedside, no acute distress. She continues to be atrial fibrillation with controlled ventricular rates. She's currently maintained on her home medications Eliquis 5 mg twice a day, a torvastatin 80 mg daily, digoxin 125mcg Tuesday, metoprolol tartrate 50 mg TID. GENERAL: In no acute distress. NECK: Supple without JVD or thyromegaly. LUNGS: Breath sounds diminished to auscultation bilaterally. Respiration equal and unlabored. No wheezes, rales or rhonchi. HEART: Irregular rate and rhythm, systolic ejection murmur at apex, No rubs or gallops. S1 and S2 heard. EXTREMITIES: Normal range of motion, no edema. No clubbing or cyanosis. Peripheral pulses intact. ASSESSMENT Persistent atrial fibrillation ventricular response Elevated troponin, not consistent with acute coronary syndrome, likely related to A fib with RVR and hypoxia Acute right lower lobe pneumonia Acute hypoxic respiratory failure Acute kidney injury Hypertension Type 2 diabetes Hypothyroidism Hyperlipidemia Decubitus pressure ulcer of the right and left buttocks PLAN Patient does appear dry on exam. Would monitor on IV fluids. Diuretics on hold Patient is rate controlled on home medications, would continue Digoxin and metoprolol tartrate Continue anticoagulation with Eliquis Further recommendations based on clinical course Nurse Practitioner note has been reviewed, I agree with a documented findings and plan of care. Patient was seen and examined. Objective - Vital Signs Vital signs: Vital Signs Temp 97.0 F L 03/15/22 09:19 Pulse 115 H 03/15/22 09:19 Resp 18 03/15/22 09:19 BP 112/66 03/15/22 09:19 Pulse Ox 96 03/15/22 09:19 Intake & Output 03/14/22 03/15/22 03/15/22 18:59 06:59 18:59 Intake Total 66.333 1000 Output Total 30 Balance 36.333 1000 Intake: Intake, IV Titration 66.333 1000 Amount Diltiazem 125 mg In 66.333 Sodium Chloride 0.9% 100 ml @ 5 MG/HR 5 mls/hr IV .Q24H [facility] Rx#:[id number] Piperacillin-Tazobactam 3 100 .375 gm In Sodium Chloride 0.9% 100 ml @ 25 mls/hr IVPB Q8HR [facility] Rx# :[id number] Sodium Chloride 0.9% 1, 900 000 ml @ 75 mls/hr IV . [id number] [facility] Rx#:[id number] Output: Urine 30 Other: Voiding Method Indwelling Catheter Indwelling Catheter Indwelling Catheter # Bowel Movements 2 - Labs CBC & Chem 7: 03/15/22 08:58 03/15/22 08:58 Labs: Abnormal Lab Results - Last 24 Hours (Table) 03/14/22 03/14/22 03/15/22 Range/Units 16:13 19:46 04:50 WBC (3.8-10.6) k/uL RBC (3.80-5.40) m/uL Hgb (11.4-16.0) gm/dL Hct (34.0-46.0) % MCHC (31.0-37.0) g/dL RDW (11.5-15.5) % Sodium (137-145) mmol/L Carbon Dioxide (22-30) mmol/L BUN (7-17) mg/dL Creatinine (0.52-1.04) mg/dL POC Glucose (mg/dL) 182 H 190 H 111 H (75-99) mg/dL Calcium (8.4-10.2) mg/dL Total Protein (6.3-8.2) g/dL Albumin (3.5-5.0) g/dL 03/15/22 03/15/22 03/15/22 Range/Units 06:22 08:58 08:58 WBC 20.8 H (3.8-10.6) k/uL RBC 3.11 L (3.80-5.40) m/uL Hgb 8.8 L (11.4-16.0) gm/dL Hct 30.0 L (34.0-46.0) % MCHC 29.4 L (31.0-37.0) g/dL RDW 18.8 H (11.5-15.5) % Sodium 133 L (137-145) mmol/L Carbon Dioxide 19 L (22-30) mmol/L BUN 57 H (7-17) mg/dL Creatinine 1.74 H (0.52-1.04) mg/dL POC Glucose (mg/dL) 107 H (75-99) mg/dL Calcium 6.5 L (8.4-10.2) mg/dL Total Protein 4.7 L (6.3-8.2) g/dL Albumin 2.0 L (3.5-5.0) g/dL 03/15/22 Range/Units 11:17 WBC (3.8-10.6) k/uL RBC (3.80-5.40) m/uL Hgb (11.4-16.0) gm/dL Hct (34.0-46.0) % MCHC (31.0-37.0) g/dL RDW (11.5-15.5) % Sodium (137-145) mmol/L Carbon Dioxide (22-30) mmol/L BUN (7-17) mg/dL Creatinine (0.52-1.04) mg/dL POC Glucose (mg/dL) 119 H (75-99) mg/dL Calcium (8.4-10.2) mg/dL Total Protein (6.3-8.2) g/dL Albumin (3.5-5.0) g/dL Microbiology - Last 24 Hours (Table) 03/12/22 17:14 Urine Culture - Final Urine,Voided Escherichia coli 03/12/22 20:03 Blood Culture - Preliminary Blood No Growth after 48 hours
--- NOTE | 2022-03-15 12:34 | P.PN ---
Subjective Progress Note Date: 03/15/22 HISTORY OF PRESENT ILLNESS 86-year-old female one of Dr. kimmie oro patient was known to have history of diabetes, hypertension, A. fib, CHF, PAD and chronic kidney disease who was hospitalized at [facility] from February 13 till March 06 for sepsis with acute ascending cholangitis with acute renal failure requiring hemodialysis which patient had dialysis catheter in the right IJ was dialyzed on regular basis for several days in [place]. Also was on antibiotics to treat UTI along with ascending cholangitis and sepsis according to family. Patient apparently has been declining for the last few month was transferred from [place] to [facility] for rehab and continued care of care. Patient found to have severe weakness tiredness with A. fib with RVR and worsening dyspnea and shortness of breath. EMS were called [facility] with A. fib with RVR pulse rate was running in the 140s to 150. Patient was started on Cardizem drip a few extra problem was found at this time including on the chest x-ray and CTA found to have infiltrate in the right side with pleural effusion, troponin was elevated and patient was diagnosed with non-ST CT possible type II. Consult cardiology for her care also patient found to have white blood cell of 25,900 with hemoglobin of 9.9, she was not in any kidney failure at this time her urine was very positive for UTI and sepsis. Patient also found to have decubitus ulcer left buttocks has 3 time 3 inches stage III decubitus the right side had a curve stage II very large 1 almost 5 inches time to cross with a small area of the right ankle as well. Culture was done at this point patient was giving 1 dose of Rocephin initially we will do va ncomycin admit patient to the hospital. Had long discussion with the granddaughter for some information patient apparently had transcutaneous biliary catheter done for obstructive jaundice at the time with gallbladder with ascending cholangitis could not be treated at [place] with an infection this biliary catheter still draining bile at this time. With the family aware of patient's current condition specially with the pneumonia, sepsis, cardiomyopathy, family decided to have DO NOT RESUSCITATE CODE STATUS at this point. They're agreeable for treatment but to do any aggressive resuscitation. 03/14: Patient is doing slightly better today, shortness of breath has improved some, hypoxia is much better than before, still seen pulmonary and nephrology. Patient urine output down significantly had significant declining kidney function compared to yesterday. Patient also was in A. fib was started on Cardizem drip and will be seen cardiology today, echocardiogram was order is not nauseated this point. Had long discussion with the family yesterday the presently with all her comorbidity and up deciding to consult hospice initially for initial consultation. Patient will be continue on current management the family decided to do hospice by Tuesday or Tuesday we'll consult hospice and comfort care. Patient was seen infectious disease yesterday order x-ray of the pelvis and lumbar spine to check for any osteomyelitis which was negative. [facility] was consulted as well. Also patient was seen pulmonary and agree with the current management for hospital-acquired pneumonia. 03/15: Patient remains confused and is refusing to take most medications and refusing to keep telemetry on. Telemetry will be discontinued. Patient is drinking some fluids but not eating. There was a family meeting with hospice over the weekend and family is not ready for hospice. Heart rate is been RVR at 1:15 and 120 with ValerieMadeline fib. Patient has been afebrile, heart rate 115, blood pressure 112/66, pulse ox 96% on 2 L nasal cannula. Repeat blood work reveals WBC of 20.8, hemoglobin 8.8, platelet count 422. Sodium 133, potassium 3.9, chloride 103, CO2 19, BUN 57 and creatinine of 1.74. Labile glucose running between 107 and 190. Urine culture is positive for E. coli and blood culture showing no growth after 48 hours. Patient has been seen by general surgery with no plan for surgical intervention on the bilateral pressure ulcers. IV fluids add sodium bicarb check iron studies. If no improvement in renal function and urine output in 24 hours, patient may need renal replacement therapy.. REVIEW OF SYSTEMS Constitutional: No fever, no chills, no night sweats. No weight change. Positive fatigue and tiredness with lethargy with daytime sleeping. EENT: No headache. No blurred vision or double vision, no loss of vision. No loss of Hearing, no ringing in the ears, no dizziness. No nasal drainage or congestion. No epistaxis. No sore throat. Lungs: Mild shortness of breath cough wheezes. Cardiovascular: Positive dyspnea with PND orthopnea palpitations and mild lightheadedness and A. fib with RVR with CHF. Abdominal: Positive abdominal distention with slight discomfort transcutaneous biliary catheter at this point. : Positive indwelling catheter with irritation and discomfort. Musculoskeletal: No myalgias. No muscle weakness, no gait dysfunction, no frequent falls. No back pain. No neck pain. Integumentary: Positive wound on the buttocks area bilaterally worse on the left than the right side will use regular dressing and special mattress. Neurologic: No aphasia. No facial droop. Noted confusion and change in mentation. No head injury. No headache. No paralysis. No paresthesia. Psychiatric: No depression. No anxiety. No mood swings. Endocrine: No abnormal blood sugars. No weight change. No excessive sweating or thirst. No cold intolerance. PHYSICAL EXAMINATION Gen: This is elderly 86-year-old female does not look in any respiratory distress. HEENT: Head is atraumatic, normocephalic. Pupils equal, round. Sclerae is anicteric. NECK: Supple. No JVD. No lymphadenopathy. No thyromegaly. LUNGS: Decrease breath some other acute fine rhonchi positive crackles in the bases with decreased breath sounds in the right side alf through. HEART: Irregular rhythm and rate S1-S2 positive S3 positive systolic murmur in the apex. ABDOMEN: Soft positive bowel sounds positive transcutaneous catheter in the right side biliary catheter, slight discomfort lower abdominal region area mostly suprapubic. EXTREMITIES: Right leg had a small ulcerated area one time 1 cm only stage II with slight decrease pulse in the dorsalis pedis bilaterally with trace edema worse on the right than the left side Back: She had decubitus ulcer on the left side measure 3 time 3 inches stage III, right side had curve with half horseshoe shape the middle is more superficial but the edges are deeper with the area almost 53 inches. NEUROLOGICAL: Patient is awake, alert and oriented to person only. Cranial nerves 2 through 12 are grossly intact. ASSESSMENT AND PLAN 1. Acute hypoxic respiratory failure secondary to A. fib with cardiomyopathy, pleural effusions. Tinea oxygen therapy. continue oxygen continue current management patient also has pneumonia and pleural effusion. She is less symptomatic today and feeling slightly better. 2. Persistent A. fib with RVR. Cardiology consult appreciated. Patient is continued on eliquis, digoxin, Lopressor 50 mg 3 times daily. 3. Bilateral pneumonia, possible gram-negative pneumonia with significant pleural effusion. Continue Zosyn. 4. Right-sided pleural effusion. Patient is status post IV Lasix. 5. Sepsis and UTI: Urine and urine culture was done we'll consult infectious disease patient was giving 1 g of Rocephin started vancomycin for now continue empiric treatment ~cultures back. 6. Elevated troponin , acute coronary syndrome ruled out by cardiology. 7. Severe decubitus ulcer, stage IV sacral pressure ulcer. Consult with infectious disease and general surgery appreciated. No plan for surgical debridement. Continue antibiotics and local wound care 8 severe ascending cholangitis with gallstone post transcutaneous biliary tube, continue current care at this point. 9 cardiopathy: Most likely ischemic and A. fib cardiomyopathy patient blood pressure was quite bit low could not tolerate medication about well and was taking ARB and ATIYA inhibitor which can be considered at this point. Still waiting for the final result of her echo for better management, also patient still seeing cardiology. 10. Acute kidney injury and recent end-stage renal disease requiring hemodialysis at [place] for almost 3 weeks. Nephrology consult appreciated. Patient may require dialysis if kidney function and urine output do not improve. Continue to monitor renal function, avoid nephrotoxic agents. 11. Diabetes mellitus type 2. Continue NovoLog scale before meals and at bedtime. 12. Hypothyroidism. Continue levothyroxine 150 g daily. 13. Hyperlipidemia. Continue patient on atorvastatin 80 mg daily. CODE STATUS: DO NOT RESUSCITATE and family had meeting with hospice over the weekend. Family do not plan to pursue hospice at this time. DISCHARGE PLAN TBD Impression and plan of care have been directed as dictated by the signing physician. Yanique Casanova nurse practitioner acting as scribe for signing physician. Objective - Vital Signs Vital signs: Vital Signs Temp 97.0 F L 03/15/22 09:19 Pulse 115 H 03/15/22 09:19 Resp 18 03/15/22 09:19 BP 121/70 03/15/22 12:03 Pulse Ox 95 03/15/22 12:03 Intake & Output 03/14/22 03/15/22 03/15/22 18:59 06:59 18:59 Intake Total 66.333 1000 Output Total 30 Balance 36.333 1000 Intake: Intake, IV Titration 66.333 1000 Amount Diltiazem 125 mg In 66.333 Sodium Chloride 0.9% 100 ml @ 5 MG/HR 5 mls/hr IV .Q24H [facility] Rx#:[id number] Piperacillin-Tazobactam 3 100 .375 gm In Sodium Chloride 0.9% 100 ml @ 25 mls/hr IVPB Q8HR [facility] Rx# :[id number] Sodium Chloride 0.9% 1, 900 000 ml @ 75 mls/hr IV . [id number] [facility] Rx#:[id number] Output: Urine 30 Other: Voiding Method Indwelling Catheter Indwelling Catheter Indwelling Catheter # Bowel Movements 2 - Labs CBC & Chem 7: 03/15/22 08:58 03/15/22 08:58 Labs: Abnormal Lab Results - Last 24 Hours (Table) 03/14/22 03/14/22 03/15/22 Range/Units 16:13 19:46 04:50 WBC (3.8-10.6) k/uL RBC (3.80-5.40) m/uL Hgb (11.4-16.0) gm/dL Hct (34.0-46.0) % MCHC (31.0-37.0) g/dL RDW (11.5-15.5) % Sodium (137-145) mmol/L Carbon Dioxide (22-30) mmol/L BUN (7-17) mg/dL Creatinine (0.52-1.04) mg/dL POC Glucose (mg/dL) 182 H 190 H 111 H (75-99) mg/dL Calcium (8.4-10.2) mg/dL Total Protein (6.3-8.2) g/dL Albumin (3.5-5.0) g/dL 03/15/22 03/15/22 03/15/22 Range/Units 06:22 08:58 08:58 WBC 20.8 H (3.8-10.6) k/uL RBC 3.11 L (3.80-5.40) m/uL Hgb 8.8 L (11.4-16.0) gm/dL Hct 30.0 L (34.0-46.0) % MCHC 29.4 L (31.0-37.0) g/dL RDW 18.8 H (11.5-15.5) % Sodium 133 L (137-145) mmol/L Carbon Dioxide 19 L (22-30) mmol/L BUN 57 H (7-17) mg/dL Creatinine 1.74 H (0.52-1.04) mg/dL POC Glucose (mg/dL) 107 H (75-99) mg/dL Calcium 6.5 L (8.4-10.2) mg/dL Total Protein 4.7 L (6.3-8.2) g/dL Albumin 2.0 L (3.5-5.0) g/dL 03/15/22 Range/Units 11:17 WBC (3.8-10.6) k/uL RBC (3.80-5.40) m/uL Hgb (11.4-16.0) gm/dL Hct (34.0-46.0) % MCHC (31.0-37.0) g/dL RDW (11.5-15.5) % Sodium (137-145) mmol/L Carbon Dioxide (22-30) mmol/L BUN (7-17) mg/dL Creatinine (0.52-1.04) mg/dL POC Glucose (mg/dL) 119 H (75-99) mg/dL Calcium (8.4-10.2) mg/dL Total Protein (6.3-8.2) g/dL Albumin (3.5-5.0) g/dL Microbiology - Last 24 Hours (Table) 03/12/22 17:14 Urine Culture - Final Urine,Voided Escherichia coli 03/12/22 20:03 Blood Culture - Preliminary Blood No Growth after 48 hours
--- NOTE | 2022-03-15 13:12 | P.PN ---
Subjective Progress Note Date: 03/15/22 Principal diagnosis: 03/14/2022, the patient is essentially the same as yesterday. No significant changes condition. The patient remains on oxygen and the patient is currently on 4 L O2 nasal cannula with a pulse of 98 %. The patient otherwise doing well. The patient's blood work from today shows a developed an acute kidney injury. Based on that, I I discontinued the Lasix and also discontinue the torsemide and the patient was taking. Otherwise, the patient remains on IV Zosyn covering for an extensive right lower lobe pneumonia. She is afebrile. She is hemodynamica lly stable. The white cell count is at 23 with a hemoglobin 9.5, sodium is at 133 with a BUN of 55 and a creatinine of 1.4. Echocardiogram shows concentric LVH, EF of around 60% along with moderate MR. The patient remains in atrial fibrillation and the patient remains on Cardizem at 5 mg an hour with adequate rate control. Breathing is nonlabored Patient was reevaluated today on 03/15/22, patient has been refusing to stay on telemetry, hence telemetry will be discontinued. Apparently hospice was discussed with family, and the patient is not ready for hospice. Patient continues to be in atrial fibrillation, she is on 2 L nasal cannula with O2 sats of 96%. Continues to have leukocytosis with WBC count of 20.8. Her urine cultures are positive for E. coli. Blood cultures remain negative. Patient is being seen by surgery for surgical intervention on her bilateral pressure ulcers. Renal profile continues to show BUN of 57 creatinine 1.74, worsening since admission, she had a baseline of 0.94, remains off diuretics. Remains on Zosyn for presumptive extensive right lower lobe pneumonia patient is hemodynamically relatively stable. Echocardiogram did show evidence of moderate mitral regurgitation. And her atrial fibrillation is being addressed by cardiology on the case. Objective - Vital Signs Vital signs: Vital Signs Temp 97.0 F L 03/15/22 09:19 Pulse 115 H 03/15/22 09:19 Resp 18 03/15/22 09:19 BP 121/70 03/15/22 12:03 Pulse Ox 95 03/15/22 12:03 Intake & Output 03/14/22 03/15/22 03/15/22 18:59 06:59 18:59 Intake Total 66.333 1000 Output Total 30 Balance 36.333 1000 Intake: Intake, IV Titration 66.333 1000 Amount Diltiazem 125 mg In 66.333 Sodium Chloride 0.9% 100 ml @ 5 MG/HR 5 mls/hr IV .Q24H [facility] Rx#:[id number] Piperacillin-Tazobactam 3 100 .375 gm In Sodium Chloride 0.9% 100 ml @ 25 mls/hr IVPB Q8HR [facility] Rx# :[id number] Sodium Chloride 0.9% 1, 900 000 ml @ 75 mls/hr IV . [id number] [facility] Rx#:[id number] Output: Urine 30 Other: Voiding Method Indwelling Catheter Indwelling Catheter Indwelling Catheter # Bowel Movements 2 - Exam Gen: Elderly female on 2 L nasal cannula, in no distress. Head: Atraumatic, normocephalic. HEENT: PERRLA, EOMI, nonicteric. Dry mucous membranes. NECK: Supple no neck masses no JVD no stridor. LUNGS: Symmetrical chest expansion, crackles at the bases. HEART: Irregular irregular rhythm, 3/6 systolic murmur thought the precordium. ABDOMEN: Soft nontender, right-sided biliary catheter is noted. EXTREMITIES: Right leg had a small ulcerated area one time 1 cm only stage II with slight decrease pulse in the dorsalis pedis bilaterally with trace edema worse on the right than the left side Skin: She had decubitus ulcer on the left side measure 3 time 3 inches stage III, right side had curve with half horseshoe shape the middle is more superficial but the edges are deeper with the area almost 53 inches. NEUROLOGICAL: Alert and oriented 3 focal deficits. Psychiatric: Normal mood affect and normal mental status examination. - Labs CBC & Chem 7: 03/15/22 08:58 03/15/22 08:58 Labs: Abnormal Lab Results - Last 24 Hours (Table) 03/14/22 03/14/22 03/15/22 Range/Units 16:13 19:46 04:50 WBC (3.8-10.6) k/uL RBC (3.80-5.40) m/uL Hgb (11.4-16.0) gm/dL Hct (34.0-46.0) % MCHC (31.0-37.0) g/dL RDW (11.5-15.5) % Sodium (137-145) mmol/L Carbon Dioxide (22-30) mmol/L BUN (7-17) mg/dL Creatinine (0.52-1.04) mg/dL POC Glucose (mg/dL) 182 H 190 H 111 H (75-99) mg/dL Calcium (8.4-10.2) mg/dL Total Protein (6.3-8.2) g/dL Albumin (3.5-5.0) g/dL 03/15/22 03/15/22 03/15/22 Range/Units 06:22 08:58 08:58 WBC 20.8 H (3.8-10.6) k/uL RBC 3.11 L (3.80-5.40) m/uL Hgb 8.8 L (11.4-16.0) gm/dL Hct 30.0 L (34.0-46.0) % MCHC 29.4 L (31.0-37.0) g/dL RDW 18.8 H (11.5-15.5) % Sodium 133 L (137-145) mmol/L Carbon Dioxide 19 L (22-30) mmol/L BUN 57 H (7-17) mg/dL Creatinine 1.74 H (0.52-1.04) mg/dL POC Glucose (mg/dL) 107 H (75-99) mg/dL Calcium 6.5 L (8.4-10.2) mg/dL Total Protein 4.7 L (6.3-8.2) g/dL Albumin 2.0 L (3.5-5.0) g/dL 03/15/22 Range/Units 11:17 WBC (3.8-10.6) k/uL RBC (3.80-5.40) m/uL Hgb (11.4-16.0) gm/dL Hct (34.0-46.0) % MCHC (31.0-37.0) g/dL RDW (11.5-15.5) % Sodium (137-145) mmol/L Carbon Dioxide (22-30) mmol/L BUN (7-17) mg/dL Creatinine (0.52-1.04) mg/dL POC Glucose (mg/dL) 119 H (75-99) mg/dL Calcium (8.4-10.2) mg/dL Total Protein (6.3-8.2) g/dL Albumin (3.5-5.0) g/dL Microbiology - Last 24 Hours (Table) 03/12/22 17:14 Urine Culture - Final Urine,Voided Escherichia coli 03/12/22 20:03 Blood Culture - Preliminary Blood No Growth after 48 hours Assessment and Plan Assessment: Impression: Acute hypoxic respiratory failure secondary to right lower lobe pneumonia, healthcare acquired pneumonia although the possibility of aspiration pneumonia is not entirely ruled out. Chronic atrial fibrillation with intermittent episodes of RVR. Small right-sided pleural effusion, parapneumonic. Acute urinary tract infection and sepsis. Acute non-ST elevation myocardial infarction Chronic diastolic congestive heart failure History of ascending cholangitis and recent transcutaneous biliary drainage done at another institution. Acute kidney injury Type 2 diabetes. Hypothyroidism Dyslipidemia Decubitus ulcers Obstructive sleep apnea syndrome Recommendation: Continue antibiotics/Zosyn Continue to hold diuretics Continue to monitor renal status Titrate FiO2 and maintaining O2 saturations above 90% Cardiology is addressing her atrial fibrillation Surgery to address her decubitus ulcers Hold eliquis if surgery is to be done on ulcers. We will continue to follow. Long-term prognosis is extremely poor and guarded. DO NOT RESUSCITATE CODE STATUS. Time with Patient: Less than 30
[2022-03-15 16:41] LABS: Glucose,Whole Blood 103 mg/dL (75-99)
[2022-03-15 16:48] LABS: % Iron Saturation 10.9 (12.00-45.00)
[2022-03-15 19:38] LABS: Glucose,Whole Blood 87 mg/dL (75-99)
[2022-03-15] MEDS: APIXABAN 2.5 MG TABLET PO SCH (19:58)
[2022-03-15] MEDS: ATORVASTATIN 80 MG TAB PO SCH (19:58)
[2022-03-15] MEDS: DIGOXIN 125 MCG TAB PO SCH (20:01)
[2022-03-15] MEDS ORDERED: PIPERACILLIN-TAZOBACTAM 3.375 GM in SODIUM CHLORIDE 0.9% 100 ML IVPB SCH (21:00)
[2022-03-16 06:08] LABS: Glucose,Whole Blood 88 mg/dL (75-99)
[2022-03-16] MEDS: INSULIN ASPART (NovoLOG) 100 UNIT/ML VIAL SQ SCH ×3 (06:10→17:14)
[2022-03-16] MEDS: LEVOTHYROXINE 75 MCG TAB PO SCH (06:15)
[2022-03-16] MEDS: PANTOPRAZOLE 40 MG TABLET PO SCH (06:15)
--- NOTE | 2022-03-16 09:21 | P.PN ---
Subjective Progress Note Date: 03/16/22 HISTORY OF PRESENT ILLNESS 86-year-old female one of Dr. kimmie oro patient was known to have history of diabetes, hypertension, A. fib, CHF, PAD and chronic kidney disease who was hospitalized at [facility] from February 13 till March 06 for sepsis with acute ascending cholangitis with acute renal failure requiring hemodialysis which patient had dialysis catheter in the right IJ was dialyzed on regular basis for several days in [place]. Also was on antibiotics to treat UTI along with ascending cholangitis and sepsis according to family. Patient apparently has been declining for the last few month was transferred from [place] to [facility] for rehab and continued care of care. Patient found to have severe weakness tiredness with A. fib with RVR and worsening dyspnea and shortness of breath. EMS were called [facility] with A. fib with RVR pulse rate was running in the 140s to 150. Patient was started on Cardizem drip a few extra problem was found at this time including on the chest x-ray and CTA found to have infiltrate in the right side with pleural effusion, troponin was elevated and patient was diagnosed with non-ST IN possible type II. Consult cardiology for her care also patient found to have white blood cell of 25,900 with hemoglobin of 9.9, she was not in any kidney failure at this time her urine was very positive for UTI and sepsis. Patient also found to have decubitus ulcer left buttocks has 3 time 3 inches stage III decubitus the right side had a curve stage II very large 1 almost 5 inches time to cross with a small area of the right ankle as well. Culture was done at this point patient was giving 1 dose of Rocephin initially we will do va ncomycin admit patient to the hospital. Had long discussion with the granddaughter for some information patient apparently had transcutaneous biliary catheter done for obstructive jaundice at the time with gallbladder with ascending cholangitis could not be treated at [place] with an infection this biliary catheter still draining bile at this time. With the family aware of patient's current condition specially with the pneumonia, sepsis, cardiomyopathy, family decided to have DO NOT RESUSCITATE CODE STATUS at this point. They're agreeable for treatment but to do any aggressive resuscitation. 03/14: Patient is doing slightly better today, shortness of breath has improved some, hypoxia is much better than before, still seen pulmonary and nephrology. Patient urine output down significantly had significant declining kidney function compared to yesterday. Patient also was in A. fib was started on Cardizem drip and will be seen cardiology today, echocardiogram was order is not nauseated this point. Had long discussion with the family yesterday the presently with all her comorbidity and up deciding to consult hospice initially for initial consultation. Patient will be continue on current management the family decided to do hospice by Tuesday or Tuesday we'll consult hospice and comfort care. Patient was seen infectious disease yesterday order x-ray of the pelvis and lumbar spine to check for any osteomyelitis which was negative. [facility] care was consulted as well. Also patient was seen pulmonary and agree with the current management for hospital-acquired pneumonia. 5/2: Patient remains confused and is refusing to take most medications and refusing to keep telemetry on. Telemetry will be discontinued. Patient is drinking some fluids but not eating. There was a family meeting with hospice over the weekend and family is not ready for hospice. Heart rate is been RVR at 1:15 and 120 with ValerieMadeline jayro. Patient has been afebrile, heart rate 115, blood pressure 112/66, pulse ox 96% on 2 L nasal cannula. Repeat blood work reveals WBC of 20.8, hemoglobin 8.8, platelet count 422. Sodium 133, potassium 3.9, chloride 103, CO2 19, BUN 57 and creatinine of 1.74. Labile glucose running between 107 and 190. Urine culture is positive for E. coli and blood culture showing no growth after 48 hours. Patient has been seen by general surgery with no plan for surgical intervention on the bilateral pressure ulcers. IV fluids add sodium bicarb check iron studies. If no improvement in renal function and urine output in 24 hours, patient may need renal replacement therapy.. 5/3: Patient has had a total of 175 mL of urine output over the past 12 hours. Patient continues to have pain control issues. Patient's granddaughter alexa is at the bedside and plan is for possibly changing to hospice. Patient is currently a no CODE STATUS. She has been afebrile, heart rate 99, blood pressure 122/77, pulse ox 99% on 2 L nasal cannula. Urine culture positive for ESBL E. coli resistant to ceftriaxone and Zosyn. She also has a blood culture positive for Haemophilus influenza. Zosyn discontinued and patient started on Invanz. Repeat blood work REVIEW OF SYSTEMS Constitutional: No fever, no chills, no night sweats. No weight change. Positive fatigue and tiredness with lethargy with daytime sleeping. EENT: No headache. No blurred vision or double vision, no loss of vision. No loss of Hearing, no ringing in the ears, no dizziness. No nasal drainage or congestion. No epistaxis. No sore throat. Lungs: Mild shortness of breath cough wheezes. Cardiovascular: Positive dyspnea with PND orthopnea palpitations and mild lightheadedness and A. fib with RVR with CHF. Abdominal: Positive abdominal distention with slight discomfort transcutaneous biliary catheter at this point. : Positive indwelling catheter with irritation and discomfort. Musculoskeletal: No myalgias. No muscle weakness, no gait dysfunction, no frequent falls. No back pain. No neck pain. Integumentary: Positive wound on the buttocks area bilaterally worse on the left than the right side will use regular dressing and special mattress. Neurologic: No aphasia. No facial droop. Noted confusion and change in mentation. No head injury. No headache. No paralysis. No paresthesia. Psychiatric: No depression. No anxiety. No mood swings. Endocrine: No abnormal blood sugars. No weight change. No excessive sweating or thirst. PHYSICAL EXAMINATION Gen: This is elderly 86-year-old female does not look in any respiratory distress. HEENT: Head is atraumatic, normocephalic. Pupils equal, round. Sclerae is anicteric. NECK: Supple. No JVD. No lymphadenopathy. No thyromegaly. LUNGS: Decrease breath some other acute fine rhonchi positive crackles in the bases with decreased breath sounds in the right side group home through. HEART: Irregular rhythm and rate S1-S2 positive S3 positive systolic murmur in the apex. ABDOMEN: Soft positive bowel sounds positive transcutaneous catheter in the right side biliary catheter, slight discomfort lower abdominal region area mostly suprapubic. EXTREMITIES: Right leg had a small ulcerated area one time 1 cm only stage II with slight decrease pulse in the dorsalis pedis bilaterally with trace edema worse on the right than the left side Back: She had decubitus ulcer on the left side measure 3 time 3 inches stage III, right side had curve with half horseshoe shape the middle is more superficial but the edges are deeper with the area almost 53 inches. NEUROLOGICAL: Patient is awake, alert and oriented to person only. Cranial nerves 2 through 12 are grossly intact. ASSESSMENT AND PLAN 1. Acute hypoxic respiratory failure secondary to A. fib with cardiomyopathy, pleural effusions. Continue oxygen continue current management patient also has pneumonia and pleural effusion. She is less symptomatic today and feeling sligh tly better. 2. Persistent A. fib with RVR. Cardiology consult appreciated. Patient is continued on eliquis, digoxin, Lopressor 50 mg 3 times daily. 3. Bilateral pneumonia, possible gram-negative pneumonia with significant pleural effusion. 4. Right-sided pleural effusion. Patient is status post IV Lasix. 5. Sepsis and UTI: Urine and urine culture was done we'll consult infectious disease patient was giving 1 g of Rocephin started vancomycin for now continue empiric treatment ~cultures back. 6. Elevated troponin , acute coronary syndrome ruled out by cardiology. 7. Severe decubitus ulcer, stage IV sacral pressure ulcer. Consult with infectious disease and general surgery appreciated. No plan for surgical debridement. Continue antibiotics and local wound care 8 severe ascending cholangitis with gallstone post transcutaneous biliary tube, continue current care at this point. 9 cardiopathy: Most likely ischemic and A. fib cardiomyopathy patient blood pressure was quite bit low could not tolerate medication about well and was taking ARB and ATIYA inhibitor which can be considered at this point. Still waiting for the final result of her echo for better management, also patient still seeing cardiology. 10. Acute kidney injury and recent end-stage renal disease requiring hemodialysis at [place] for almost 3 weeks. Nephrology consult appreciated. Patient may require dialysis if kidney function and urine output do not improve. Continue to monitor renal function, avoid nephrotoxic agents. 11. Diabetes mellitus type 2. Continue NovoLog scale before meals and at bedtime. 12. Hypothyroidism. Continue levothyroxine 150 g daily. 13. Hyperlipidemia. Continue patient on atorvastatin 80 mg daily. CODE STATUS: DO NOT RESUSCITATE and family had meeting with hospice over the weekend. Family may pursue hospice at this time. DISCHARGE PLAN TBD Impression and plan of care have been directed as dictated by the signing phys ician. Yanique Casanova nurse practitioner acting as scribe for signing physician. Objective - Vital Signs Vital signs: Vital Signs Temp 97.8 F 03/15/22 19:55 Pulse 99 03/16/22 03:50 Resp 18 03/16/22 03:50 BP 122/77 03/16/22 03:50 Pulse Ox 99 03/16/22 03:50 Intake & Output 03/15/22 03/16/22 03/16/22 18:59 06:59 18:59 Intake Total 1200 Output Total 175 Balance 1200 -175 Weight 89 kg Intake: Intake, IV Titration 1000 Amount Piperacillin-Tazobactam 3 100 .375 gm In Sodium Chloride 0.9% 100 ml @ 25 mls/hr IVPB Q8HR [facility] Rx# :[id number] Sodium Chloride 0.9% 1, 900 000 ml @ 75 mls/hr IV . [id number] [facility] Rx#:[id number] Oral 200 Output: Urine 175 Other: Voiding Method Indwelling Catheter Indwelling Catheter - Labs CBC & Chem 7: 03/15/22 08:58 03/15/22 08:58 Labs: Abnormal Lab Results - Last 24 Hours (Table) 03/15/22 03/15/22 03/15/22 Range/Units 08:58 08:58 08:58 WBC 20.8 H (3.8-10.6) k/uL RBC 3.11 L (3.80-5.40) m/uL Hgb 8.8 L (11.4-16.0) gm/dL Hct 30.0 L (34.0-46.0) % MCHC 29.4 L (31.0-37.0) g/dL RDW 18.8 H (11.5-15.5) % Sodium 133 L (137-145) mmol/L Carbon Dioxide 19 L (22-30) mmol/L BUN 57 H (7-17) mg/dL Creatinine 1.74 H (0.52-1.04) mg/dL POC Glucose (mg/dL) (75-99) mg/dL Calcium 6.5 L (8.4-10.2) mg/dL Iron 18 L (50-170) ug/dL TIBC 162 L (228-460) ug/dL % Saturation 10.90 L (12.00-45.00) Transferrin 116.0 L (204.0-354.0) mg/dL Ferritin 481.0 H (10.0-291.0) ng/mL Total Protein 4.7 L (6.3-8.2) g/dL Albumin 2.0 L (3.5-5.0) g/dL 03/15/22 03/15/22 Range/Units 11:17 16:39 WBC (3.8-10.6) k/uL RBC (3.80-5.40) m/uL Hgb (11.4-16.0) gm/dL Hct (34.0-46.0) % MCHC (31.0-37.0) g/dL RDW (11.5-15.5) % Sodium (137-145) mmol/L Carbon Dioxide (22-30) mmol/L BUN (7-17) mg/dL Creatinine (0.52-1.04) mg/dL POC Glucose (mg/dL) 119 H 103 H (75-99) mg/dL Calcium (8.4-10.2) mg/dL Iron (50-170) ug/dL TIBC (228-460) ug/dL % Saturation (12.00-45.00) Transferrin (204.0-354.0) mg/dL Ferritin (10.0-291.0) ng/mL Total Protein (6.3-8.2) g/dL Albumin (3.5-5.0) g/dL Microbiology - Last 24 Hours (Table) 03/12/22 20:03 Blood Culture - Final Blood 03/12/22 20:03 Blood Culture Gram Stain - Preliminary Blood Blood Culture - Preliminary Haemophilus influenzae 03/12/22 17:14 Urine Culture - Final Urine,Voided Escherichia coli
[2022-03-16] MEDS ORDERED: ERTAPENEM 1 GM in SODIUM CHLORIDE 0.9% 50 ML IVPB SCH (09:30)
[2022-03-16] MEDS: APIXABAN 2.5 MG TABLET PO SCH ×2 (10:08→21:54)
[2022-03-16] MEDS: SODIUM BICARBONATE TAB 650 MG TAB PO SCH ×2 (10:09→21:54)
[2022-03-16] MEDS: METOPROLOL TARTRATE 50 MG TAB PO SCH ×3 (10:09→21:54)
[2022-03-16] MEDS: COLLAGENASE 250 UNIT/GM OINTMENT 30 GM TUBE TOPICAL SCH (10:09)
[2022-03-16] MEDS: polyethylene glycoL 3350 17 GM POWD.PACK PO SCH (10:09)
[2022-03-16] MEDS: NON FORMULARY DRUG (Patiromer Calcium Sorbitex [Veltassa] 8.4 GM Packet) PO SCH (10:09)
[2022-03-16] MEDS: SODIUM CHLORIDE 0.9% 1,000 ML IV SCH (10:15)
[2022-03-16] MEDS: BRIMONIDINE TARTRATE 0.2% DROPS 5 ML BTL BOTH EYES SCH (10:16)
[2022-03-16 10:27] LABS: Magnesium 1.7 mg/dL (1.6-2.3)
[2022-03-16 10:29] LABS: Calcium 6.3 mg/dL (8.4-10.2)
--- NOTE | 2022-03-16 10:32 | P.PN ---
Subjective Patient is seen in follow-up for acute kidney injury. Creatinine 1.74 yesterday. Urine output a little improved - 175 mL overnight. Currently on normal saline at 75 mL an hour. Also received 80 mg IV Lasix on 03/14/2022. Patient is somewhat confused. She is hard of hearing. Blood pressure stable. 2 L nasal cannula. Vital signs are stable. General: No acute distress. HEENT: Head exam is unremarkable. LUNGS: Breath sounds decreased. HEART: Rate and Rhythm are regular. ABDOMEN: Soft, no distention. Drain noted. EXTREMITITES: Trace edema. Objective - Vital Signs Vital signs: Vital Signs Temp 96.8 F L 03/16/22 09:50 Pulse 110 H 03/16/22 09:50 Resp 18 03/16/22 09:50 BP 92/56 03/16/22 09:50 Pulse Ox 96 03/16/22 09:50 Intake & Output 03/15/22 03/16/22 03/16/22 18:59 06:59 18:59 Intake Total 1200 Output Total 175 Balance 1200 -175 Weight 89 kg Intake: Intake, IV Titration 1000 Amount Piperacillin-Tazobactam 3 100 .375 gm In Sodium Chloride 0.9% 100 ml @ 25 mls/hr IVPB Q8HR [facility] Rx# :[id number] Sodium Chloride 0.9% 1, 900 000 ml @ 75 mls/hr IV . [id number] [facility] Rx#:[id number] Oral 200 Output: Urine 175 Other: Voiding Method Indwelling Catheter Indwelling Catheter Indwelling Catheter - Labs CBC & Chem 7: 03/15/22 08:58 03/15/22 08:58 Labs: Abnormal Lab Results - Last 24 Hours (Table) 03/15/22 03/15/22 03/15/22 Range/Units 08:58 11:17 16:39 POC Glucose (mg/dL) 119 H 103 H (75-99) mg/dL Iron 18 L (50-170) ug/dL TIBC 162 L (228-460) ug/dL % Saturation 10.90 L (12.00-45.00) Transferrin 116.0 L (204.0-354.0) mg/dL Ferritin 481.0 H (10.0-291.0) ng/mL Microbiology - Last 24 Hours (Table) 04/29/22 20:03 Blood Culture - Final Blood 03/12/22 20:03 Blood Culture Gram Stain - Preliminary Blood Blood Culture - Preliminary Haemophilus influenzae 03/12/22 17:14 Urine Culture - Final Urine,Voided Escherichia coli Assessment and Plan Plan: Assessment: 1. Acute kidney injury secondary to ATN secondary to hypotension and infection. Also component of contrast-induced acute kidney injury. Patient received IV contrast for CTA done 03/12/2022. Creatinine was 0.94 on admission and 1.74 ye sterday. UA shows no proteinuria. No hydronephrosis noted on kidney ultrasound. Left kidney could not be visualized. Urine output 175 mL overnight. 2. A. fib with RVR status post Cardizem drip. On oral Lopressor and anticoagulation. 3. E. coli UTI and Haemophilus influenza bacteremia on antibiotics. 4. Chronic diastolic CHF with moderate mitral regurgitation. 5. Diabetes mellitus. 6. Acute hypoxic respiratory failure secondary to pneumonia. 7. Metabolic acidosis secondary to acute kidney injury and IV fluids. On oral bicarbonate. Plan: Maintain IV fluids. Status post 80 mg IV Lasix given 03/14/2022. Avoid nephrotoxins. Hold off on IV iron due to active infection. Overall prognosis guarded. Not an ideal candidate for renal replacement therapy. Hospice being considered.
[2022-03-16 11:34] LABS: Glucose,Whole Blood 88 mg/dL (75-99)
--- NOTE | 2022-03-16 12:10 | P.PN ---
Subjective Progress Note Date: 03/16/22 Principal diagnosis: Acute hypoxic respiratory failure secondary to acute right lower lobe pneumonia, Haemophilus influenza pneumonia and sepsis with Haemophilus influenza bacterem ia. And E. coli urinary tract infection 03/14/2022, the patient is essentially the same as yesterday. No significant changes condition. The patient remains on oxygen and the patient is currently o n 4 L O2 nasal cannula with a pulse of 98 %. The patient otherwise doing well. The patient's blood work from today shows a developed an acute kidney injury. Based on that, I I discontinued the Lasix and also discontinue the torsemide and the patient was taking. Otherwise, the patient remains on IV Zosyn covering for an extensive right lower lobe pneumonia. She is afebrile. She is hemodynamic ally stable. The white cell count is at 23 with a hemoglobin 9.5, sodium is at 133 with a BUN of 55 and a creatinine of 1.4. Echocardiogram shows concentric LVH, EF of around 60% along with moderate MR. The patient remains in atrial fibrillation and the patient remains on Cardizem at 5 mg an hour with adequate rate control. Breathing is nonlabored Patient was reevaluated today on 03/15/22, patient has been refusing to stay on telemetry, hence telemetry will be discontinued. Apparently hospice was discussed with family, and the patient is not ready for hospice. Patient continues to be in atrial fibrillation, she is on 2 L nasal cannula with O2 sats of 96%. Continues to have leukocytosis with WBC count of 20.8. Her urine cultures are positive for E. coli. Blood cultures remain negative. Patient is being seen by surgery for surgical intervention on her bilateral pressure ulcers. Renal profile continues to show BUN of 57 creatinine 1.74, worsening since admission, she had a baseline of 0.94, remains off diuretics. Remains on Zosyn for presumptive extensive right lower lobe pneumonia patient is hemodynamically relatively stable. Echocardiogram did show evidence of moderate mitral regurgitation. And her atrial fibrillation is being addressed by cardiology on the case. Patient was reevaluated today on 03/16/22, patient is basically about the same, patient is being followed by many consultants and her urine culture came back positive for ESBL E. coli. Her blood cultures are positive for Haemophilus influenza hence the patient is now on Invanz and replacing Zosyn and c eftriaxone. Patient is again about the same, and I had a chance to update her granddaughter on her condition, and I believe the family is considering possibly hospice. I also discussed her condition with the client account assistant on the case, and he does not believe that the patient will do well with hemodialysis if needed. General surgery is yet to decide on debridement of her decub ulcers. Renal prof ile is worse today with a BUN of 60 creatinine 1.86. Bicarb is 16. Objective - Vital Signs Vital signs: Vital Signs Temp 96.8 F L 03/16/22 09:50 Pulse 110 H 03/16/22 09:50 Resp 18 03/16/22 09:50 BP 92/56 03/16/22 09:50 Pulse Ox 96 03/16/22 09:50 Intake & Output 03/15/22 03/16/22 03/16/22 18:59 06:59 18:59 Intake Total 1200 950 Output Total 175 Balance 1200 -175 950 Weight 89 kg Intake: Intake, IV Titration 1000 950 Amount Ertapenem 1 gm In Sodium 50 Chloride 0.9% 50 ml @ 100 mls/hr IVPB DAILY [facility] Rx #:[id number] Piperacillin-Tazobactam 3 100 .375 gm In Sodium Chloride 0.9% 100 ml @ 25 mls/hr IVPB Q8HR [facility] Rx# :[id number] Sodium Chloride 0.9% 1, 900 900 000 ml @ 75 mls/hr IV . [id number] [facility] Rx#:[id number] Oral 200 Output: Urine 175 Other: Voiding Method Indwelling Catheter Indwelling Catheter Indwelling Catheter - Exam Gen: Elderly female on 2 L nasal cannula, in no distress. Head: Atraumatic, normocephalic. HEENT: PERRLA, EOMI, nonicteric. Dry mucous membranes. NECK: Supple no neck masses no JVD no stridor. LUNGS: Symmetrical chest expansion, crackles at the bases. HEART: Irregular irregular rhythm, 3/6 systolic murmur thought the precordium. ABDOMEN: Soft nontender, right-sided biliary catheter is noted. EXTREMITIES: Right leg had a small ulcerated area one time 1 cm only stage II with slight decrease pulse in the dorsalis pedis bilaterally with trace edema worse on the right than the left side Skin: She had decubitus ulcer on the left side measure 3 time 3 inches stage III, right side had curve with half horseshoe shape the middle is more superficial but the edges are deeper with the area almost 53 inches. NEUROLOGICAL: Alert and oriented 3 focal deficits. Psychiatric: Normal mood affect and normal mental status examination. - Labs CBC & Chem 7: 03/15/22 08:58 03/16/22 09:58 Labs: Abnormal Lab Results - Last 24 Hours (Table) 03/15/22 03/15/22 03/16/22 Range/Units 08:58 16:39 09:58 Sodium 134 L (137-145) mmol/L Carbon Dioxide 16 L (22-30) mmol/L BUN 60 H (7-17) mg/dL Creatinine 1.86 H (0.52-1.04) mg/dL POC Glucose (mg/dL) 103 H (75-99) mg/dL Calcium 6.3 L* (8.4-10.2) mg/dL Iron 18 L (50-170) ug/dL TIBC 162 L (228-460) ug/dL % Saturation 10.90 L (12.00-45.00) Transferrin 116.0 L (204.0-354.0) mg/dL Ferritin 481.0 H (10.0-291.0) ng/mL Microbiology - Last 24 Hours (Table) 03/12/22 20:03 Blood Culture - Final Blood 03/12/22 20:03 Blood Culture Gram Stain - Preliminary Blood Blood Culture - Preliminary Haemophilus influenzae 03/12/22 17:14 Urine Culture - Final Urine,Voided Escherichia coli Assessment and Plan Assessment: Impression: Acute hypoxic respiratory failure secondary to Haemophilus influenza pneumonia involving the right lower lobe with Haemophilus influenza bacteremia. Chronic atrial fibrillation with intermittent episodes of RVR. Small right-sided pleural effusion, parapneumonic. Acute urinary tract infection secondary to ESBL E. coli. Hence the patient is now on Invanz. Acute non-ST elevation myocardial infarction Chronic diastolic congestive heart failure History of ascending cholangitis and recent transcutaneous biliary drainage done at another institution. Acute kidney injury Type 2 diabetes. Hypothyroidism Dyslipidemia Decubitus ulcers Obstructive sleep apnea syndrome Recommendation: Continue antibiotics/Invanz. Continue to hold diuretics Continue to monitor renal status Titrate FiO2 and maintaining O2 saturations above 90% Cardiology is addressing her atrial fibrillation Surgery to address her decubitus ulcers DO NOT RESUSCITATE CODE STATUS. Updated granddaughter on her condition, and hospice is being considered. We'll continue to follow unless the patient goes to hospice. Time with Patient: Less than 30
--- NOTE | 2022-03-16 12:28 | P.PN ---
Subjective This is a pleasant 86-year-old female past medical history significant for persistent atrial fibrillation on Eliquis, hypertension, type 2 diabetes, hypothyroidism, hyperlipidemia. She follows in the office with Dr. Reid. We have been asked to see in consultation for atrial fibrillation with RVR and elevated troponin. generalized weakness, tiredness, worsening shortness of breath. She was diagnosed with acute right lower lobe pneumonia and acute kidney injury. Echocardiogram revealed EF of 5560%. Moderate LVH, moderate MR Patient seen and examined at bedside, no acute distress. She continues to be atrial fibrillation with controlled ventricular rates. She is not making adequate urine output. Only 175mL over the past 24 hours. She's currently maintained on her home medications Eliquis 5 mg twice a day, atorvastatin 80 mg daily, digoxin 125mcg Tuesday, metoprolol tartrate 50 mg TID. GENERAL: In no acute distress. NECK: Supple without JVD or thyromegaly. LUNGS: Breath sounds diminished to auscultation bilaterally. Respiration equal and unlabored. No wheezes, rales or rhonchi. HEART: Irregular rate and rhythm, systolic ejection murmur at apex, No rubs or gallops. S1 and S2 heard. EXTREMITIES: Normal range of motion, no edema. No clubbing or cyanosis. Peripheral pulses intact. ASSESSMENT Long standing persistent atrial fibrillation with rapid ventricular response, rates controlled Elevated troponin, not consistent with acute coronary syndrome, likely related to A fib with RVR and hypoxia Acute right lower lobe pneumonia Acute hypoxic respiratory failure Acute kidney injury Hypertension Type 2 diabetes Hypothyroidism Hyperlipidemia Decubitus pressure ulcer of the right and left buttocks PLAN Would continue to hold Diuretics at this time Patient is rate controlled on home medications, would continue Digoxin and metoprolol tartrate Continue anticoagulation with Eliquis Nephrology following Hospice being considered From a cardiology perspective, no further inpatient changes at this time. We will follow the patient as needed. Please reconsult if needed. Nurse Practitioner note has been reviewed, I agree with a documented findings and plan of care. Patient was seen and examined. Objective - Vital Signs Vital signs: Vital Signs Temp 98.3 F 03/16/22 12:03 Pulse 73 03/16/22 12:03 Resp 16 03/16/22 12:03 BP 96/49 03/16/22 12:03 Pulse Ox 96 03/16/22 09:50 Intake & Output 03/15/22 03/16/22 03/16/22 18:59 06:59 18:59 Intake Total 1200 950 Output Total 175 Balance 1200 -175 950 Weight 89 kg Intake: Intake, IV Titration 1000 950 Amount Ertapenem 1 gm In Sodium 50 Chloride 0.9% 50 ml @ 100 mls/hr IVPB DAILY [facility] Rx #:[id number] Piperacillin-Tazobactam 3 100 .375 gm In Sodium Chloride 0.9% 100 ml @ 25 mls/hr IVPB Q8HR [facility] Rx# :[id number] Sodium Chloride 0.9% 1, 900 900 000 ml @ 75 mls/hr IV . [id number] [facility] Rx#:[id number] Oral 200 Output: Urine 175 Other: Voiding Method Indwelling Catheter Indwelling Catheter Indwelling Catheter - Labs CBC & Chem 7: 03/15/22 08:58 03/16/22 09:58 Labs: Abnormal Lab Results - Last 24 Hours (Table) 03/15/22 03/15/22 03/16/22 Range/Units 08:58 16:39 09:58 Sodium 134 L (137-145) mmol/L Carbon Dioxide 16 L (22-30) mmol/L BUN 60 H (7-17) mg/dL Creatinine 1.86 H (0.52-1.04) mg/dL POC Glucose (mg/dL) 103 H (75-99) mg/dL Calcium 6.3 L* (8.4-10.2) mg/dL Iron 18 L (50-170) ug/dL TIBC 162 L (228-460) ug/dL % Saturation 10.90 L (12.00-45.00) Transferrin 116.0 L (204.0-354.0) mg/dL Ferritin 481.0 H (10.0-291.0) ng/mL Microbiology - Last 24 Hours (Table) 03/12/22 20:03 Blood Culture - Final Blood 03/12/22 20:03 Blood Culture Gram Stain - Preliminary Blood Blood Culture - Preliminary Haemophilus influenzae 03/12/22 17:14 Urine Culture - Final Urine,Voided Escherichia coli
--- NOTE | 2022-03-16 13:12 | P.PN ---
Subjective Progress Note Date: 03/16/22 CHIEF COMPLAINT: Pressure ulcer HISTORY OF PRESENT ILLNESS: The patient is a 86 year old female admitted for generalized weakness 3 days ago. Work-up demonstrated atrial fibrillation with new rapid ventricular response 2 days ago. She had cholangitis and was treated with drainage procedure at an outside institution over 3 weeks ago per hospital records. Patient also evidence with acute kidney injury. Nephrology is following and patient may require renal replacement. She also had atrial flutter ablation with rapid ventricular response. She is off the Cardizem drip on oral Lopressor. Surgical service following in regards to her decubitus pressure ulcers. Patient's family has not with hospice. Awaiting their decision regarding possible hospice placement. PHYSICAL EXAM: VITAL SIGNS: Reviewed. GENERAL: Well-developed in no acute distress. HEENT: No sclera icterus. Extraocular movements grossly intact. Moist buccal mucosa. Head is atraumatic, normocephalic. ABDOMEN: Soft. Nondistended. Nontender. NEUROLOGIC: Confused Skin: Right buttocks 7 cm diameter wound with granulation tissue. There is a flap of skin noted. Also a smaller ulceration noted on the left buttocks about 3 cm in diameter with granulation tissue. No surrounding redness noted. ASSESSMENT: 1. Decubitus pressure ulcer of the right and left buttocks with healthy granulation tissue 2. Ascending cholangitis with gallstones status post drainage tube at outside facility 3. Acute kidney injury 4. Sepsis PLAN: -No surgical intervention planned -Continue local wound care -Keep pressure off of the wound -Continue supportive care -Antibiotics per ID service Physician Business Controller note has been reviewed by physician. Signing provider agrees with the documented findings, assessment, and plan of care. Objective - Vital Signs Vital signs: Vital Signs Temp 98.3 F 03/16/22 12:03 Pulse 73 03/16/22 12:03 Resp 16 03/16/22 12:03 BP 96/49 03/16/22 12:03 Pulse Ox 96 03/16/22 09:50 Intake & Output 03/15/22 03/16/22 03/16/22 18:59 06:59 18:59 Intake Total 1200 950 Output Total 175 Balance 1200 -175 950 Weight 89 kg Intake: Intake, IV Titration 1000 950 Amount Ertapenem 1 gm In Sodium 50 Chloride 0.9% 50 ml @ 100 mls/hr IVPB DAILY [facility] Rx #:[id number] Piperacillin-Tazobactam 3 100 .375 gm In Sodium Chloride 0.9% 100 ml @ 25 mls/hr IVPB Q8HR [facility] Rx# :[id number] Sodium Chloride 0.9% 1, 900 900 000 ml @ 75 mls/hr IV . [id number] [facility] Rx#:[id number] Oral 200 Output: Urine 175 Other: Voiding Method Indwelling Catheter Indwelling Catheter Indwelling Catheter - Labs CBC & Chem 7: 03/15/22 08:58 03/16/22 09:58 Labs: Abnormal Lab Results - Last 24 Hours (Table) 03/15/22 03/15/22 03/16/22 Range/Units 08:58 16:39 09:58 Sodium 134 L (137-145) mmol/L Carbon Dioxide 16 L (22-30) mmol/L BUN 60 H (7-17) mg/dL Creatinine 1.86 H (0.52-1.04) mg/dL POC Glucose (mg/dL) 103 H (75-99) mg/dL Calcium 6.3 L* (8.4-10.2) mg/dL Iron 18 L (50-170) ug/dL TIBC 162 L (228-460) ug/dL % Saturation 10.90 L (12.00-45.00) Transferrin 116.0 L (204.0-354.0) mg/dL Ferritin 481.0 H (10.0-291.0) ng/mL Microbiology - Last 24 Hours (Table) 03/12/22 20:03 Blood Culture Gram Stain - Preliminary Blood Blood Culture - Final Haemophilus influenzae 03/12/22 20:03 Blood Culture - Final Blood 03/12/22 17:14 Urine Culture - Final Urine,Voided Escherichia coli
[2022-03-16] MEDS ORDERED: LORazepam 2 MG/ML INJ IV PRN (14:24)
[2022-03-16] MEDS ORDERED: MORPHINE SULFATE 2 MG/ML SYRINGE IV PRN (14:24)
[2022-03-16] MEDS ORDERED: ATROPINE OPHTH SOLN 1% 5ML BTL SUBLINGUAL PRN (14:24)
[2022-03-16] MEDS ORDERED: ACETAMINOPHEN SUPPOSITORY 650 MG SUPP RECTAL PRN (14:24)
[2022-03-16] MEDS ORDERED: HYDROmorphone 1 MG/ML 1 ML SYRINGE IVP PRN (14:24)
[2022-03-16] MEDS: HYDROcodone/APAP 7.5-325MG 1 EACH TAB PO PRN (14:59)
[2022-03-16] MEDS ORDERED: SCOPOLAMINE 1 MG/72 HR PATCH TRANSDERM SCH (15:00)
[2022-03-16 16:14] LABS: Glucose,Whole Blood 122 mg/dL (75-99)
[2022-03-16] MEDS: HYDROmorphone 0.5 MG/0.5 ML SYRINGE IVP PRN ×2 (16:16→18:30)
[2022-03-16 19:53] LABS: Glucose,Whole Blood 135 mg/dL (75-99)
[2022-03-16] MEDS: ATORVASTATIN 80 MG TAB PO SCH (21:54)
[2022-03-17] MEDS: HYDROcodone/APAP 7.5-325MG 1 EACH TAB PO PRN (03:26)
[2022-03-17 06:00] LABS: Glucose,Whole Blood 107 mg/dL (75-99)
[2022-03-17] MEDS: INSULIN ASPART (NovoLOG) 100 UNIT/ML VIAL SQ SCH ×5 (06:13→21:00)
[2022-03-17] MEDS: BRIMONIDINE TARTRATE 0.2% DROPS 5 ML BTL BOTH EYES SCH ×2 (06:14→17:25)
[2022-03-17] MEDS: LEVOTHYROXINE 75 MCG TAB PO SCH (06:44)
[2022-03-17] MEDS: PANTOPRAZOLE 40 MG TABLET PO SCH (06:44)
[2022-03-17] MEDS: SODIUM CHLORIDE 0.9% 1,000 ML IV SCH ×2 (06:45→17:25)
[2022-03-17] MEDS ORDERED: ERTAPENEM 0.5 GM in SODIUM CHLORIDE 0.9% 50 ML IVPB SCH (09:00)
[2022-03-17] MEDS: APIXABAN 2.5 MG TABLET PO SCH (09:26)
[2022-03-17] MEDS: METOPROLOL TARTRATE 50 MG TAB PO SCH ×2 (09:26→17:18)
[2022-03-17] MEDS: SODIUM BICARBONATE TAB 650 MG TAB PO SCH (09:26)
--- NOTE | 2022-03-17 09:41 | P.PN ---
Subjective Progress Note Date: 03/17/22 HISTORY OF PRESENT ILLNESS 86-year-old female one of Dr. kimmie roo patient was known to have history of diabetes, hypertension, A. fib, CHF, PAD and chronic kidney disease who [place] [facility] 06 for sepsis with acute ascending cholangitis with acute renal failure requiring hemodialysis which patient had dialysis catheter in the right IJ was dialyzed on regular basis for several days in [place]. Also was on antibiotics to treat UTI along with ascending cholangitis and sepsis according to family. Patient apparently has been declining for the last few month was transferred from [place] to [facility] for rehab and continued care of care. Patient found to have severe weakness tiredness with A. fib with RVR and worsening dyspnea and shortness of breath. EMS were called and [facility] with A. fib with RVR pulse rate was running in the 140s to 150. Patient was started on Cardizem drip a few extra problem was found at this time including on the chest x-ray and CTA found to have infiltrate in the right side with pleural effusion, troponin was elevated and patient was diagnosed with non-ST NC possible type II. Consult cardiology for her care also patient found to have white blood cell of 25,900 with hemoglobin of 9.9, she was not in any kidney failure at this time her urine was very positive for UTI and sepsis. Patient also found to have decubitus ulcer left buttocks has 3 time 3 inches stage III decubitus the right side had a curve stage II very large 1 almost 5 inches time to cross with a small area of the right ankle as well. Culture was done at this point patient was giving 1 dose of Rocephin initially we will do va ncomycin admit patient to the hospital. Had long discussion with the granddaughter for some information patient apparently had transcutaneous biliary catheter done for obstructive jaundice at the time with gallbladder with ascending cholangitis could not be treated at [place] with an infection this biliary catheter still draining bile at this time. With the family aware of patient's current condition specially with the pneumonia, sepsis, cardiomyopathy, family decided to have DO NOT RESUSCITATE CODE STATUS at this point. They're agreeable for treatment but to do any aggressive resuscitation. 03/14: Patient is doing slightly better today, shortness of breath has improved some, hypoxia is much better than before, still seen pulmonary and nephrology. Patient urine output down significantly had significant declining kidney function compared to yesterday. Patient also was in A. fib was started on Cardizem drip and will be seen cardiology today, echocardiogram was order is not nauseated this point. Had long discussion with the family yesterday the presently with all her comorbidity and up deciding to consult hospice initially for initial consultation. Patient will be continue on current management the family decided to do hospice by Tuesday or Tuesday we'll consult hospice and comfort care. Patient was seen infectious disease yesterday order x-ray of the pelvis and lumbar spine to check for any osteomyelitis which was negative. [facility] care was consulted as well. Also patient was seen pulmonary and agree with the current management for hospital-acquired pneumonia. 5/2: Patient remains confused and is refusing to take most medications and refusing to keep telemetry on. Telemetry will be discontinued. Patient is drinking some fluids but not eating. There was a family meeting with hospice over the weekend and family is not ready for hospice. Heart rate is been RVR at 1:15 and 120 with ValerieMadeline jayro. Patient has been afebrile, heart rate 115, blood pressure 112/66, pulse ox 96% on 2 L nasal cannula. Repeat blood work reveals WBC of 20.8, hemoglobin 8.8, platelet count 422. Sodium 133, potassium 3.9, chloride 103, CO2 19, BUN 57 and creatinine of 1.74. Labile glucose running between 107 and 190. Urine culture is positive for E. coli and blood culture showing no growth after 48 hours. Patient has been seen by general surgery with no plan for surgical intervention on the bilateral pressure ulcers. IV fluids add sodium bicarb check iron studies. If no improvement in renal function and urine output in 24 hours, patient may need renal replacement therapy.. 5/3: Patient has had a total of 175 mL of urine output over the past 12 hours. Patient continues to have pain control issues. Patient's granddaughter alexa is at the bedside and plan is for possibly changing to hospice. Patient is currently a no CODE STATUS. She has been afebrile, heart rate 99, blood pressure 122/77, pulse ox 99% on 2 L nasal cannula. Urine culture positive for ESBL E. coli resistant to ceftriaxone and Zosyn. She also has a blood culture positive for Haemophilus influenza. Zosyn discontinued and patient started on Invanz. Repeat blood work 03/17: Repeat blood work is pending this morning. Patient continues to deteriorat e on physical examination. She is mottling to the lower extremities. Patient does not wish to go into hospice care and granddaughter didier smith is at this point prepared for hospice and making her comfortable. Hospice is following closely with you for patient to make change and decision. Patient continues to be followed by consultants. No changes in her medications at this point until she is agreeable to hospice care. REVIEW OF SYSTEMS Constitutional: No fever, no chills, no night sweats. No weight change. Positive fatigue and tiredness with lethargy with daytime sleeping. EENT: No headache. No blurred vision or double vision, no loss of vision. No loss of Hearing, no ringing in the ears, no dizziness. No nasal drainage or congestion. No epistaxis. No sore throat. Lungs: Mild shortness of breath cough wheezes. Cardiovascular: Positive dyspnea with PND orthopnea palpitations and mild lightheadedness and A. fib with RVR with CHF. Abdominal: Positive abdominal distention with slight discomfort transcutaneous biliary catheter at this point. : Positive indwelling catheter with irritation and discomfort. Musculoskeletal: No myalgias. No muscle weakness, no gait dysfunction, no frequent falls. No back pain. No neck pain. Integumentary: Positive wound on the buttocks area bilaterally worse on the left than the right side will use regular dressing and special mattress. Neurologic: No aphasia. No facial droop. Noted confusion and change in mentation. No head injury. No headache. No paralysis. No paresthesia. Psychiatric: No depression. No anxiety. No mood swings. Endocrine: No abnormal blood sugars. No weight change. No excessive sweating or thirst. PHYSICAL EXAMINATION Gen: This is elderly 86-year-old female does not look in any respiratory distress. HEENT: Head is atraumatic, normocephalic. Pupils equal, round. Sclerae is anicteric. NECK: Supple. No JVD. No lymphadenopathy. No thyromegaly. LUNGS: Decrease breath some other acute fine rhonchi positive crackles in the bases with decreased breath sounds in the right side alf through. HEART: Irregular rhythm and rate S1-S2 positive S3 positive systolic murmur in the apex. ABDOMEN: Soft positive bowel sounds positive transcutaneous catheter in the right side biliary catheter, slight discomfort lower abdominal region area m ostly suprapubic. EXTREMITIES: Right leg had a small ulcerated area one time 1 cm only stage II with slight decrease pulse in the dorsalis pedis bilaterally with trace edema worse on the right than the left side Back: She had decubitus ulcer on the left side measure 3 time 3 inches stage III, right side had curve with half horseshoe shape the middle is more superficial but the edges are deeper with the area almost 53 inches. NEUROLOGICAL: Patient is awake, alert and oriented to person only. Cranial nerves 2 through 12 are grossly intact. ASSESSMENT AND PLAN 1. Acute hypoxic respiratory failure secondary to A. fib with cardiomyopathy, pleural effusions. Continue oxygen continue current management patient also has pneumonia and pleural effusion. 2. Persistent A. fib with RVR. Cardiology consult appreciated. Patient is continued on eliquis, digoxin, Lopressor 50 mg 3 times daily. 3. Bilateral pneumonia, most likely Haemophilus influenza with bacteremia. 4. Right-sided pleural effusion. Patient is status post IV Lasix. 5. Sepsis and E. coli ESBL UTI. Patient is currently on Invanz. 6. Elevated troponin , acute coronary syndrome ruled out by cardiology. 7. Severe decubitus ulcer, stage IV sacral pressure ulcer. Consult with infectious disease and general surgery appreciated. No plan for surgical debridement. Continue antibiotics and local wound care 8 severe ascending cholangitis with gallstone post transcutaneous biliary tube, continue current care at this point. 9 cardiopathy: Most likely ischemic and A. fib cardiomyopathy patient blood pressure was quite bit low could not tolerate medication about well and was taking ARB and ATIYA inhibitor which can be considered at this point. Still waiting for the final result of her echo for better management, also patient still seeing cardiology. 10. Acute kidney injury and recent end-stage renal disease requiring hemodialysis at [place] for almost 3 weeks. Nephrology consult appreciated. Patient may require dialysis if kidney function and urine output do not improve. Continue to monitor renal function, avoid nephrotoxic agents. 11. Diabetes mellitus type 2. Continue NovoLog scale before meals and at bedtime. 12. Hypothyroidism. Continue levothyroxine 150 g daily. 13. Hyperlipidemia. Continue patient on atorvastatin 80 mg daily. CODE STATUS: DO NOT RESUSCITATE and family had meeting with hospice over the weekend. DISCHARGE PLAN TBD Impression and plan of care have been directed as dictated by the signing physician. Yanique Casanova nurse practitioner acting as scribe for signing physician. Objective - Vital Signs Vital signs: Vital Signs Temp 98.3 F 03/16/22 12:03 Pulse 85 03/17/22 02:00 Resp 16 03/17/22 02:00 BP 96/49 03/16/22 12:03 Pulse Ox 96 03/16/22 09:50 Intake & Output 03/16/22 03/17/22 03/17/22 18:59 06:59 18:59 Intake Total 950 Output Total 35 0 150 Balance 915 0 -150 Weight 88.5 kg Intake: Intake, IV Titration 950 Amount Ertapenem 1 gm In Sodium 50 Chloride 0.9% 50 ml @ 100 mls/hr IVPB DAILY [facility] Rx #:[id number] Sodium Chloride 0.9% 1, 900 000 ml @ 75 mls/hr IV . [id number] [facility] Rx#:[id number] Output: Drainage 35 0 Right Abdomen 35 0 Urine 150 Other: Voiding Method Indwelling Catheter Indwelling Catheter - Labs CBC & Chem 7: 03/15/22 08:58 03/16/22 09:58 Labs: Abnormal Lab Results - Last 24 Hours (Table) 03/16/22 03/16/22 03/16/22 Range/Units 09:58 16:12 19:51 Sodium 134 L (137-145) mmol/L Carbon Dioxide 16 L (22-30) mmol/L BUN 60 H (7-17) mg/dL Creatinine 1.86 H (0.52-1.04) mg/dL POC Glucose (mg/dL) 122 H 135 H (75-99) mg/dL Calcium 6.3 L* (8.4-10.2) mg/dL 03/17/22 Range/Units 05:58 Sodium (137-145) mmol/L Carbon Dioxide (22-30) mmol/L BUN (7-17) mg/dL Creatinine (0.52-1.04) mg/dL POC Glucose (mg/dL) 107 H (75-99) mg/dL Calcium (8.4-10.2) mg/dL Microbiology - Last 24 Hours (Table) 03/12/22 20:03 Blood Culture Gram Stain - Final Blood Blood Culture - Final Haemophilus influenzae
[2022-03-17] MEDS ORDERED: FUROSEMIDE 10 MG/ML 10 ML VIAL IV STA (11:27)
[2022-03-17] MEDS ORDERED: CALCIUM GLUCONATE IN NACL 1 GM in SALINE 1 100ML.BAG IVPB ONE (11:27)
--- NOTE | 2022-03-17 11:28 | P.PN ---
Subjective Patient is seen in follow-up for acute kidney injury. Creatinine 1.86 yesterday. Urine output remains low. Currently on normal saline at 75 mL an hour. Also received 80 mg IV Lasix on 03/14/2022. Patient is quite lethargic. On 2 L nasal cannula. Blood pressure stable. Vital signs are stable. General: No acute distress. Lethargic. HEENT: Head exam is unremarkable. LUNGS: Breath sounds decreased. HEART: Rate and Rhythm are regular. ABDOMEN: Soft, no distention. EXTREMITITES: Trace edema. Objective - Vital Signs Vital signs: Vital Signs Temp 98.3 F 03/16/22 12:03 Pulse 84 03/17/22 09:31 Resp 16 03/17/22 09:31 BP 120/60 03/17/22 09:31 Pulse Ox 94 L 03/17/22 09:31 Intake & Output 03/16/22 03/17/22 03/17/22 18:59 06:59 18:59 Intake Total 950 25 Output Total 35 0 150 Balance 915 0 -125 Weight 88.5 kg Intake: Intake, IV Titration 950 Amount Ertapenem 1 gm In Sodium 50 Chloride 0.9% 50 ml @ 100 mls/hr IVPB DAILY [facility] Rx #:[id number] Sodium Chloride 0.9% 1, 900 000 ml @ 75 mls/hr IV . [id number] [facility] Rx#:[id number] Oral 25 Output: Drainage 35 0 Right Abdomen 35 0 Urine 150 Other: Voiding Method Indwelling Catheter Indwelling Catheter - Labs CBC & Chem 7: 03/15/22 08:58 03/16/22 09:58 Labs: Abnormal Lab Results - Last 24 Hours (Table) 03/16/22 03/16/22 03/17/22 Range/Units 16:12 19:51 05:58 POC Glucose (mg/dL) 122 H 135 H 107 H (75-99) mg/dL Microbiology - Last 24 Hours (Table) 03/12/22 20:03 Blood Culture Gram Stain - Final Blood Blood Culture - Final Haemophilus influenzae Assessment and Plan Plan: Assessment: 1. Acute kidney injury secondary to ATN secondary to hypotension and infection. Also component of contrast-induced acute kidney injury. Patient received IV contrast for CTA done 03/12/2022. Creatinine was 0.94 on admission and 1.86 yesterday. UA shows no proteinuria. No hydronephrosis noted on kidney ultrasou nd. Left kidney could not be visualized. Urine output 175 mL overnight. 2. A. fib with RVR status post Cardizem drip. On oral Lopressor and anticoagulation. 3. E. coli UTI and Haemophilus influenza bacteremia on antibiotics. 4. Chronic diastolic CHF with moderate mitral regurgitation. 5. Diabetes mellitus. 6. Acute hypoxic respiratory failure secondary to pneumonia. 7. Metabolic acidosis secondary to acute kidney injury and IV fluids. On oral bicarbonate. Plan: Maintain IV fluids. Status post 80 mg IV Lasix given 03/14/2022. Repeat another dose today. Increase dose of bicarb. Avoid nephrotoxins. Hold off on IV iron due to active infection. Overall prognosis guarded. Not an ideal candidate for renal replacement therapy. Family does not want renal replacement therapy. Hospice being considered. Final decision pending.
[2022-03-17 11:34] VITALS: BMI 35.6
[2022-03-17 11:36] LABS: Glucose,Whole Blood 136 mg/dL (75-99)
--- NOTE | 2022-03-17 12:35 | P.PN ---
Subjective Progress Note Date: 03/17/22 Principal diagnosis: Acute hypoxic respiratory failure secondary to acute right lower lobe pneumonia, Haemophilus influenza pneumonia and sepsis with Haemophilus influenza bacterem ia. And E. coli urinary tract infection 03/14/2022, the patient is essentially the same as yesterday. No significant changes condition. The patient remains on oxygen and the patient is currently o n 4 L O2 nasal cannula with a pulse of 98 %. The patient otherwise doing well. The patient's blood work from today shows a developed an acute kidney injury. Based on that, I I discontinued the Lasix and also discontinue the torsemide and the patient was taking. Otherwise, the patient remains on IV Zosyn covering for an extensive right lower lobe pneumonia. She is afebrile. She is hemodynamic ally stable. The white cell count is at 23 with a hemoglobin 9.5, sodium is at 133 with a BUN of 55 and a creatinine of 1.4. Echocardiogram shows concentric LVH, EF of around 60% along with moderate MR. The patient remains in atrial fibrillation and the patient remains on Cardizem at 5 mg an hour with adequate rate control. Breathing is nonlabored Patient was reevaluated today on 03/15/22, patient has been refusing to stay on telemetry, hence telemetry will be discontinued. Apparently hospice was discussed with family, and the patient is not ready for hospice. Patient continues to be in atrial fibrillation, she is on 2 L nasal cannula with O2 sats of 96%. Continues to have leukocytosis with WBC count of 20.8. Her urine cultures are positive for E. coli. Blood cultures remain negative. Patient is being seen by surgery for surgical intervention on her bilateral pressure ulcers. Renal profile continues to show BUN of 57 creatinine 1.74, worsening since admission, she had a baseline of 0.94, remains off diuretics. Remains on Zosyn for presumptive extensive right lower lobe pneumonia patient is hemodynamically relatively stable. Echocardiogram did show evidence of moderate mitral regurgitation. And her atrial fibrillation is being addressed by cardiology on the case. Patient was reevaluated today on 03/16/22, patient is basically about the same, patient is being followed by many consultants and her urine culture came back positive for ESBL E. coli. Her blood cultures are positive for Haemophilus influenza hence the patient is now on Invanz and replacing Zosyn and c eftriaxone. Patient is again about the same, and I had a chance to update her granddaughter on her condition, and I believe the family is considering possibly hospice. I also discussed her condition with the print line supervisor on the case, and he does not believe that the patient will do well with hemodialysis if needed. General surgery is yet to decide on debridement of her decub ulcers. Renal prof ile is worse today with a BUN of 60 creatinine 1.86. Bicarb is 16. Reevaluated today on 03/17/22, patient is basically about the same. Apparently the family felt that the patient is not ready to go for hospice, she remains DO NOT RESUSCITATE, and she remains on full treatment plan as outlined by the admitting physician and by other consultants on the case. Pulmonary-duarte, the patient remains on antibiotics for presumptive pneumonia, it could very well be Haemophilus influenza pneumonia since the blood cultures were positive for Haemophilus influenza. Patient also had ESBL E. coli in the urine. And the patient remains on Invanz treatment. Renal profile is worsening today creatinine is up to 1.86, and that being addressed by nephrology on the case. Objective - Vital Signs Vital signs: Vital Signs Temp 98.3 F 03/16/22 12:03 Pulse 84 03/17/22 09:31 Resp 16 03/17/22 09:31 BP 120/60 03/17/22 09:31 Pulse Ox 94 L 03/17/22 09:31 Intake & Output 03/16/22 03/17/22 03/17/22 18:59 06:59 18:59 Intake Total 950 25 Output Total 35 0 150 Balance 915 0 -125 Weight 88.5 kg 88.5 kg Intake: Intake, IV Titration 950 Amount Ertapenem 1 gm In Sodium 50 Chloride 0.9% 50 ml @ 100 mls/hr IVPB DAILY [facility] Rx #:[id number] Sodium Chloride 0.9% 1, 900 000 ml @ 75 mls/hr IV . [id number] [facility] Rx#:[id number] Oral 25 Output: Drainage 35 0 0 Right Abdomen 35 0 0 Urine 150 Other: Voiding Method Indwelling Catheter Indwelling Catheter Indwelling Catheter - Exam Gen: Elderly female on 2 L nasal cannula, in no distress. Head: Atraumatic, normocephalic. HEENT: PERRLA, EOMI, nonicteric. Dry mucous membranes. NECK: Supple no neck masses no JVD no stridor. LUNGS: Symmetrical chest expansion, crackles at the bases. HEART: Irregular irregular rhythm, 3/6 systolic murmur thought the precordium. ABDOMEN: Soft nontender, right-sided biliary catheter is noted. EXTREMITIES: Right leg had a small ulcerated area one time 1 cm only stage II with slight decrease pulse in the dorsalis pedis bilaterally with trace edema worse on the right than the left side Skin: She had decubitus ulcer on the left side measure 3 time 3 inches stage III, right side had curve with half horseshoe shape the middle is more superficial but the edges are deeper with the area almost 53 inches. NEUROLOGICAL: Alert and oriented 3 focal deficits. Psychiatric: Normal mood affect and normal mental status examination. - Labs CBC & Chem 7: 03/15/22 08:58 03/16/22 09:58 Labs: Abnormal Lab Results - Last 24 Hours (Table) 03/16/22 03/16/22 03/17/22 Range/Units 16:12 19:51 05:58 POC Glucose (mg/dL) 122 H 135 H 107 H (75-99) mg/dL 03/17/22 Range/Units 11:25 POC Glucose (mg/dL) 136 H (75-99) mg/dL Microbiology - Last 24 Hours (Table) 03/12/22 20:03 Blood Culture Gram Stain - Final Blood Blood Culture - Final Haemophilus influenzae Assessment and Plan Assessment: Impression: Acute hypoxic respiratory failure secondary to Haemophilus influenza pneumonia involving the right lower lobe with Haemophilus influenza bacteremia. Chronic atrial fibrillation with intermittent episodes of RVR. Small right-sided pleural effusion, parapneumonic. Acute urinary tract infection secondary to ESBL E. coli. Hence the patient is now on Invanz. Infectious disease on the case Acute non-ST elevation myocardial infarction Chronic diastolic congestive heart failure History of ascending cholangitis and recent transcutaneous biliary drainage done at another institution. Acute kidney injury Type 2 diabetes. Hypothyroidism Dyslipidemia Decubitus ulcers Obstructive sleep apnea syndrome Recommendation: Continue antibiotics/Invanz. Continue to monitor renal status this is being addressed by nephrology on the case. Titrate FiO2 and maintaining O2 saturations above 90% Cardiology is addressing her atrial fibrillation Surgery to address her decubitus ulcers, apparently no plans for any surgical intervention. DO NOT RESUSCITATE CODE STATUS. Updated granddaughter on her condition, will follow as needed. Time with Patient: Less than 30
--- NOTE | 2022-03-17 14:33 | P.PN ---
Subjective Progress Note Date: 03/17/22 CHIEF COMPLAINT: Pressure ulcer HISTORY OF PRESENT ILLNESS: No new change. Awaiting family decision regarding hospice. Patient lying in bed comfortably. Does not report pain. Afebrile. Patient seen and examined with Dr. ervin PHYSICAL EXAM: VITAL SIGNS: Reviewed. GENERAL: Well-developed in no acute distress. HEENT: No sclera icterus. Extraocular movements grossly intact. Moist buccal mucosa. Head is atraumatic, normocephalic. ABDOMEN: Soft. Nondistended. Nontender. NEUROLOGIC: Confused Skin: Right buttocks 7 cm diameter wound with granulation tissue. There is a flap of skin noted. Also a smaller ulceration noted on the left buttocks about 3 cm in diameter with granulation tissue. No surrounding redness noted. Extremities: Mottling of the lower extremities bilaterally ASSESSMENT: 1. Decubitus pressure ulcer of the right and left buttocks 2. Ascending cholangitis with gallstones status post drainage tube at outside facility 3. Acute kidney injury 4. Sepsis PLAN: -No surgical intervention planned -Continue local wound care -Keep pressure off of the wound -Continue supportive care -Antibiotics per ID service Physician Documentation Billing Clerk note has been reviewed by physician. Signing provider agrees with the documented findings, assessment, and plan of care. Objective - Vital Signs Vital signs: Vital Signs Temp 98.3 F 03/16/22 12:03 Pulse 84 03/17/22 09:31 Resp 16 03/17/22 14:00 BP 120/60 03/17/22 09:31 Pulse Ox 94 L 03/17/22 09:31 Intake & Output 03/16/22 03/17/22 03/17/22 18:59 06:59 18:59 Intake Total 950 25 Output Total 35 0 150 Balance 915 0 -125 Weight 88.5 kg 88.5 kg Intake: Intake, IV Titration 950 Amount Ertapenem 1 gm In Sodium 50 Chloride 0.9% 50 ml @ 100 mls/hr IVPB DAILY [facility] Rx #:[id number] Sodium Chloride 0.9% 1, 900 000 ml @ 75 mls/hr IV . [id number] [facility] Rx#:[id number] Oral 25 Output: Drainage 35 0 0 Right Abdomen 35 0 0 Urine 150 Other: Voiding Method Indwelling Catheter Indwelling Catheter Indwelling Catheter - Labs CBC & Chem 7: 03/15/22 08:58 03/16/22 09:58 Labs: Abnormal Lab Results - Last 24 Hours (Table) 03/16/22 03/16/22 03/17/22 Range/Units 16:12 19:51 05:58 POC Glucose (mg/dL) 122 H 135 H 107 H (75-99) mg/dL 03/17/22 Range/Units 11:25 POC Glucose (mg/dL) 136 H (75-99) mg/dL Microbiology - Last 24 Hours (Table) 03/12/22 20:03 Blood Culture Gram Stain - Final Blood Blood Culture - Final Haemophilus influenzae
[2022-03-17] MEDS: HYDROmorphone 0.5 MG/0.5 ML SYRINGE IVP PRN (14:35)
[2022-03-17 15:30] LABS: Calcium 6.6 mg/dL (8.4-10.2); Magnesium 1.9 mg/dL (1.6-2.3); Potassium 4.1 mmol/L (3.5-5.1)
[2022-03-17 16:36] LABS: Glucose,Whole Blood 140 mg/dL (75-99)
[2022-03-17] MEDS: NON FORMULARY DRUG (Patiromer Calcium Sorbitex [Veltassa] 8.4 GM Packet) PO SCH (17:15)
[2022-03-17] MEDS: polyethylene glycoL 3350 17 GM POWD.PACK PO SCH (17:15)
[2022-03-17] MEDS: COLLAGENASE 250 UNIT/GM OINTMENT 30 GM TUBE TOPICAL SCH (17:24)
--- NOTE | 2022-03-17 19:51 | P.PN ---
Subjective Progress Note Date: 03/15/22 Principal diagnosis: Possible pneumonia and sacral pressure ulcer Patient is a 86-year-old female with multiple comorbidities and recent prolonged stay at [facility] for biliary sepsis requiring: Cholecystotomy tube placement subsequently has been the intermediate and the patient has developed stage IV sacral pressure presented to the hospital for evaluation of increasing shortness of breath, with concern for possible CHF/pneumonia. On today's evaluation and that is 03/15/2022, the patient remains to be afebrile, the patient is hemodynamically stable, the patient is breathing slightly comfortably no chest pain or shortness of breath occasional cough no ab dominal pain denies any worsening pain to the sacral wound area Objective - Vital Signs Vital signs: Vital Signs Temp 97.1 F L 03/15/22 16:10 Pulse 117 H 03/15/22 16:10 Resp 20 03/15/22 16:10 BP 128/71 03/15/22 16:10 Pulse Ox 100 03/15/22 16:10 Intake & Output 03/15/22 03/15/22 03/16/22 06:59 18:59 06:59 Intake Total 1200 Balance 1200 Intake: Intake, IV Titration 1000 Amount Piperacillin-Tazobactam 3 100 .375 gm In Sodium Chloride 0.9% 100 ml @ 25 mls/hr IVPB Q8HR [facility] Rx# :[id number] Sodium Chloride 0.9% 1, 900 000 ml @ 75 mls/hr IV . [id number] [facility] Rx#:[id number] Oral 200 Other: Voiding Method Indwelling Catheter Indwelling Catheter - Exam GENERAL DESCRIPTION: An elderly female lying in bed in no distress RESPIRATORY SYSTEM: Unlabored breathing , decreased breath sounds at bases HEART: S1 S2 regular rate and rhythm , ABDOMEN: Soft , no tenderness EXTREMITIES: No edema feet - Labs CBC & Chem 7: 03/15/22 08:58 03/17/22 14:45 Labs: Abnormal Lab Results - Last 24 Hours (Table) 03/15/22 03/15/22 03/15/22 Range/Units 04:50 06:22 08:58 WBC 20.8 H (3.8-10.6) k/uL RBC 3.11 L (3.80-5.40) m/uL Hgb 8.8 L (11.4-16.0) gm/dL Hct 30.0 L (34.0-46.0) % MCHC 29.4 L (31.0-37.0) g/dL RDW 18.8 H (11.5-15.5) % Sodium (137-145) mmol/L Carbon Dioxide (22-30) mmol/L BUN (7-17) mg/dL Creatinine (0.52-1.04) mg/dL POC Glucose (mg/dL) 111 H 107 H (75-99) mg/dL Calcium (8.4-10.2) mg/dL Iron (50-170) ug/dL TIBC (228-460) ug/dL % Saturation (12.00-45.00) Transferrin (204.0-354.0) mg/dL Ferritin (10.0-291.0) ng/mL Total Protein (6.3-8.2) g/dL Albumin (3.5-5.0) g/dL 03/15/22 03/15/22 03/15/22 Range/Units 08:58 08:58 11:17 WBC (3.8-10.6) k/uL RBC (3.80-5.40) m/uL Hgb (11.4-16.0) gm/dL Hct (34.0-46.0) % MCHC (31.0-37.0) g/dL RDW (11.5-15.5) % Sodium 133 L (137-145) mmol/L Carbon Dioxide 19 L (22-30) mmol/L BUN 57 H (7-17) mg/dL Creatinine 1.74 H (0.52-1.04) mg/dL POC Glucose (mg/dL) 119 H (75-99) mg/dL Calcium 6.5 L (8.4-10.2) mg/dL Iron 18 L (50-170) ug/dL TIBC 162 L (228-460) ug/dL % Saturation 10.90 L (12.00-45.00) Transferrin 116.0 L (204.0-354.0) mg/dL Ferritin 481.0 H (10.0-291.0) ng/mL Total Protein 4.7 L (6.3-8.2) g/dL Albumin 2.0 L (3.5-5.0) g/dL 03/15/22 Range/Units 16:39 WBC (3.8-10.6) k/uL RBC (3.80-5.40) m/uL Hgb (11.4-16.0) gm/dL Hct (34.0-46.0) % MCHC (31.0-37.0) g/dL RDW (11.5-15.5) % Sodium (137-145) mmol/L Carbon Dioxide (22-30) mmol/L BUN (7-17) mg/dL Creatinine (0.52-1.04) mg/dL POC Glucose (mg/dL) 103 H (75-99) mg/dL Calcium (8.4-10.2) mg/dL Iron (50-170) ug/dL TIBC (228-460) ug/dL % Saturation (12.00-45.00) Transferrin (204.0-354.0) mg/dL Ferritin (10.0-291.0) ng/mL Total Protein (6.3-8.2) g/dL Albumin (3.5-5.0) g/dL Microbiology - Last 24 Hours (Table) 03/12/22 20:03 Blood Culture Gram Stain - Preliminary Blood 03/12/22 20:03 Blood Culture - Final Blood 03/12/22 17:14 Urine Culture - Final Urine,Voided Escherichia coli Assessment and Plan (1) Leukocytosis Current Visit: Yes Status: Acute Code(s): D72.829 - ELEVATED WHITE BLOOD CELL COUNT, UNSPECIFIED SNOMED Code(s): 504883086 Plan: 1patient with a stage IV sacral pressure ulcer with slough tissue however no significant surrounding redness underlying second infection less likely but not excluded patient benefit from surgical debridement for general surgery be consulted, for now local wound care with the Santyl followed by moist dressing to be changed daily and keep the area of the pressure. 2patient with increasing shortness of breath abnormal x-ray and a CT more likely CHF underlying pneumonia less likely but not excluded. 3 patient to continue with Zosyn. 4 sputum for gram stain and culture. 6patient has been evaluated by general surgery recommended holding Eliquis before surgical debridement, however the patient is leaning more towards nonsurgical intervention at this point Time with Patient: Less than 30
--- NOTE | 2022-03-17 19:53 | P.PN ---
Subjective Progress Note Date: 03/16/22 Principal diagnosis: Possible pneumonia and sacral pressure ulcer Patient is a 86-year-old female with multiple comorbidities and recent prolonged stay at [facility] for biliary sepsis requiring: Cholecystotomy tube placement subsequently has been the [place] [facility] and the patient has developed stage IV sacral pressure presented to the hospital for evaluation of increasing shortness of breath, with concern for possible CHF/pneumonia. On today's evaluation and that is 03/16/2022, the patient continues to be afebrile, the patient is breathing slightly comfortably no nasal cannula oxygen, the patient denies chest pain or shortness of breath occasional cough no abdominal pain , the patient denies any worsening pain to the sacral wound area Objective - Vital Signs Vital signs: Vital Signs Temp 98.3 F 03/16/22 12:03 Pulse 73 03/16/22 12:03 Resp 16 03/16/22 12:03 BP 96/49 03/16/22 12:03 Pulse Ox 96 03/16/22 09:50 Intake & Output 03/15/22 03/16/22 03/16/22 18:59 06:59 18:59 Intake Total 1200 950 Output Total 175 Balance 1200 -175 950 Weight 89 kg Intake: Intake, IV Titration 1000 950 Amount Ertapenem 1 gm In Sodium 50 Chloride 0.9% 50 ml @ 100 mls/hr IVPB DAILY [facility] Rx #:[id number] Piperacillin-Tazobactam 3 100 .375 gm In Sodium Chloride 0.9% 100 ml @ 25 mls/hr IVPB Q8HR [facility] Rx# :[id number] Sodium Chloride 0.9% 1, 900 900 000 ml @ 75 mls/hr IV . [id number] [facility] Rx#:[id number] Oral 200 Output: Urine 175 Other: Voiding Method Indwelling Catheter Indwelling Catheter Indwelling Catheter - Exam GENERAL DESCRIPTION: An elderly female lying in bed in no distress RESPIRATORY SYSTEM: Unlabored breathing , decreased breath sounds at bases HEART: S1 S2 regular rate and rhythm , ABDOMEN: Soft , no tenderness EXTREMITIES: No edema feet - Labs CBC & Chem 7: 03/15/22 08:58 03/17/22 14:45 Labs: Abnormal Lab Results - Last 24 Hours (Table) 03/15/22 03/15/22 03/16/22 Range/Units 08:58 16:39 09:58 Sodium 134 L (137-145) mmol/L Carbon Dioxide 16 L (22-30) mmol/L BUN 60 H (7-17) mg/dL Creatinine 1.86 H (0.52-1.04) mg/dL POC Glucose (mg/dL) 103 H (75-99) mg/dL Calcium 6.3 L* (8.4-10.2) mg/dL Iron 18 L (50-170) ug/dL TIBC 162 L (228-460) ug/dL % Saturation 10.90 L (12.00-45.00) Transferrin 116.0 L (204.0-354.0) mg/dL Ferritin 481.0 H (10.0-291.0) ng/mL Microbiology - Last 24 Hours (Table) 03/12/22 20:03 Blood Culture Gram Stain - Preliminary Blood Blood Culture - Final Haemophilus influenzae 03/12/22 20:03 Blood Culture - Final Blood 03/12/22 17:14 Urine Culture - Final Urine,Voided Escherichia coli Assessment and Plan (1) Leukocytosis Current Visit: Yes Status: Acute Code(s): D72.829 - ELEVATED WHITE BLOOD CELL COUNT, UNSPECIFIED SNOMED Code(s): 848757960 Plan: 1patient with a stage IV sacral pressure ulcer with slough tissue however no significant surrounding redness underlying second infection less likely but not excluded patient benefit from surgical debridement for general surgery be consulted, for now local wound care with the Santyl followed by moist dressing to be changed daily and keep the area of the pressure. 2patient with ESBL E. coli in the urine culture and diabetic has been switched over to Invanz 500 mg daily 3blood culture with Haemophilus likely related to the pneumonia sensitivities pending Time with Patient: Less than 30
--- NOTE | 2022-03-17 19:59 | P.PN ---
Subjective Progress Note Date: 03/17/22 Principal diagnosis: Possible pneumonia and sacral pressure ulcer Patient is a 86-year-old female with multiple comorbidities and recent prolonged stay at [facility] for biliary sepsis requiring: Cholecystotomy tube placement subsequently has been the [facility] and the patient has developed stage IV sacral pressure presented to the hospital for evaluation of increasing shortness of breath, with concern for possible CHF/pneumonia. On today's evaluation and that is 03/17/2022, the patient remains to be afebrile, the patient is breathing slightly comfortably no nasal cannula oxygen, the patient is sleepy and lethargic today and did not provide any history no vomiting or diarrhea has been reported by the nursing staff Objective - Vital Signs Vital signs: Vital Signs Temp 98.3 F 03/16/22 12:03 Pulse 84 03/17/22 09:31 Resp 16 03/17/22 09:31 BP 120/60 03/17/22 09:31 Pulse Ox 94 L 03/17/22 09:31 Intake & Output 03/16/22 03/17/22 03/17/22 18:59 06:59 18:59 Intake Total 950 25 Output Total 35 0 150 Balance 915 0 -125 Weight 88.5 kg 88.5 kg Intake: Intake, IV Titration 950 Amount Ertapenem 1 gm In Sodium 50 Chloride 0.9% 50 ml @ 100 mls/hr IVPB DAILY [facility] Rx #:[id number] Sodium Chloride 0.9% 1, 900 000 ml @ 75 mls/hr IV . [id number] [facility] Rx#:[id number] Oral 25 Output: Drainage 35 0 0 Right Abdomen 35 0 0 Urine 150 Other: Voiding Method Indwelling Catheter Indwelling Catheter Indwelling Catheter - Exam GENERAL DESCRIPTION: An elderly female lying in bed in no distress RESPIRATORY SYSTEM: Unlabored breathing , decreased breath sounds at bases HEART: S1 S2 regular rate and rhythm , ABDOMEN: Soft , no tenderness EXTREMITIES: No edema feet - Labs CBC & Chem 7: 03/15/22 08:58 03/17/22 14:45 Labs: Abnormal Lab Results - Last 24 Hours (Table) 03/16/22 03/16/22 03/17/22 Range/Units 16:12 19:51 05:58 POC Glucose (mg/dL) 122 H 135 H 107 H (75-99) mg/dL 03/17/22 Range/Units 11:25 POC Glucose (mg/dL) 136 H (75-99) mg/dL Microbiology - Last 24 Hours (Table) 03/12/22 20:03 Blood Culture Gram Stain - Final Blood Blood Culture - Final Haemophilus influenzae Assessment and Plan (1) Leukocytosis Current Visit: Yes Status: Acute Code(s): D72.829 - ELEVATED WHITE BLOOD CELL COUNT, UNSPECIFIED SNOMED Code(s): 535102253 Plan: 1patient with a stage IV sacral pressure ulcer with slough tissue however no significant surrounding redness underlying second infection less likely but not excluded patient benefit from surgical debridement for general surgery be consulted, for now local wound care with the Santyl followed by moist dressing to be changed daily and keep the area of the pressure. 2patient with ESBL E. coli in the urine culture and antibiotics has been switched over to Invanz 500 mg daily 3blood culture with Haemophilus sensitivities are currently pending likely related to the pneumonia and should be covered with the Invanz, however the family not wanting any aggressive treatment would hold on adding any further workup or blood cultures Time with Patient: Less than 30
[2022-03-17 20:12] LABS: Glucose,Whole Blood 147 mg/dL (75-99)
[2022-03-17] MEDS ORDERED: SODIUM BICARBONATE TAB 650 MG TAB PO SCH (21:00)
[2022-03-18] MEDS: APIXABAN 2.5 MG TABLET PO SCH (06:03)
[2022-03-18] MEDS: ATORVASTATIN 80 MG TAB PO SCH (06:04)
[2022-03-18] MEDS: BRIMONIDINE TARTRATE 0.2% DROPS 5 ML BTL BOTH EYES SCH (06:05)
[2022-03-18] MEDS: DIGOXIN 125 MCG TAB PO SCH (06:05)
[2022-03-18] MEDS: SODIUM CHLORIDE 0.9% 1,000 ML IV SCH (06:06)
[2022-03-18] MEDS: METOPROLOL TARTRATE 50 MG TAB PO SCH ×2 (06:06→09:27)
[2022-03-18 06:22] LABS: Glucose,Whole Blood 155 mg/dL (75-99)
[2022-03-18] MEDS: LEVOTHYROXINE 75 MCG TAB PO SCH (07:42)
[2022-03-18] MEDS: PANTOPRAZOLE 40 MG TABLET PO SCH (07:43)
[2022-03-18] MEDS: NON FORMULARY DRUG (Patiromer Calcium Sorbitex [Veltassa] 8.4 GM Packet) PO SCH (07:44)
[2022-03-18] MEDS: HYDROmorphone 0.5 MG/0.5 ML SYRINGE IVP PRN ×4 (08:45→20:09)
[2022-03-18 09:27] LABS: Calcium 7.1 mg/dL (8.4-10.2); Magnesium 1.9 mg/dL (1.6-2.3)
--- NOTE | 2022-03-18 09:29 | P.PN ---
Subjective Progress Note Date: 03/18/22 HISTORY OF PRESENT ILLNESS 86-year-old female one of Dr. kimmie oro patient was known to have history of diabetes, hypertension, A. fib, CHF, PAD and chronic kidney disease who was hospitalized at [facility] from February 13 till March 06 for sepsis with acute ascending cholangitis with acute renal failure requiring hemodialysis which patient had dialysis catheter in the right IJ was dialyzed on regular basis for several days in [place]. Also was on antibiotics to treat UTI along with ascending cholangitis and sepsis according to family. Patient apparently has been declining for the last few month was transferred from [place] to [facility] for rehab and continued care of care. Patient found to have severe weakness tiredness with A. fib with RVR and worsening dyspnea and shortness of breath. EMS were called [facility] with A. fib with RVR pulse rate was running in the 140s to 150. Patient was started on Cardizem drip a few extra problem was found at this time including on the chest x-ray and CTA found to have infiltrate in the right side with pleural effusion, troponin was elevated and patient was diagnosed with non-ST [place] possible type II. Consult cardiology for her care also patient found to have white blood cell of 25,900 with hemoglobin of 9.9, she was not in any kidney failure at this time her urine was very positive for UTI and sepsis. Patient also found to have decubitus ulcer left buttocks has 3 time 3 inches stage III decubitus the right side had a curve stage II very large 1 almost 5 inches time to cross with a small area of the right ankle as well. Culture was done at this point patient was giving 1 dose of Rocephin initially we will do va ncomycin admit patient to the hospital. Had long discussion with the granddaughter for some information patient apparently had transcutaneous biliary catheter done for obstructive jaundice at the time with gallbladder with ascending cholangitis could not be treated at [place] with an infection this biliary catheter still draining bile at this time. With the family aware of patient's current condition specially with the pneumonia, sepsis, cardiomyopathy, family decided to have DO NOT RESUSCITATE CODE STATUS at this point. They're agreeable for treatment but to do any aggressive resuscitation. 03/14: Patient is doing slightly better today, shortness of breath has improved some, hypoxia is much better than before, still seen pulmonary and nephrology. Patient urine output down significantly had significant declining kidney function compared to yesterday. Patient also was in A. fib was started on Cardizem drip and will be seen cardiology today, echocardiogram was order is not nauseated this point. Had long discussion with the family yesterday the presently with all her comorbidity and up deciding to consult hospice initially for initial consultation. Patient will be continue on current management the family decided to do hospice by Tuesday or Tuesday we'll consult hospice and comfort care. Patient was seen infectious disease yesterday order x-ray of the pelvis and lumbar spine to check for any osteomyelitis which was negative. [facility] care was consulted as well. Also patient was seen pulmonary and agree with the current management for hospital-acquired pneumonia. 5/2: Patient remains confused and is refusing to take most medications and refusing to keep telemetry on. Telemetry will be discontinued. Patient is drinking some fluids but not eating. There was a family meeting with hospice over the weekend and family is not ready for hospice. Heart rate is been RVR at 1:15 and 120 with ValerieMadeline jayro. Patient has been afebrile, heart rate 115, blood pressure 112/66, pulse ox 96% on 2 L nasal cannula. Repeat blood work reveals WBC of 20.8, hemoglobin 8.8, platelet count 422. Sodium 133, potassium 3.9, chloride 103, CO2 19, BUN 57 and creatinine of 1.74. Labile glucose running between 107 and 190. Urine culture is positive for E. coli and blood culture showing no growth after 48 hours. Patient has been seen by general surgery with no plan for surgical intervention on the bilateral pressure ulcers. IV fluids add sodium bicarb check iron studies. If no improvement in renal function and urine output in 24 hours, patient may need renal replacement therapy.. 5/3: Patient has had a total of 175 mL of urine output over the past 12 hours. Patient continues to have pain control issues. Patient's granddaughter alexa is at the bedside and plan is for possibly changing to hospice. Patient is currently a no CODE STATUS. She has been afebrile, heart rate 99, blood pressure 122/77, pulse ox 99% on 2 L nasal cannula. Urine culture positive for ESBL E. coli resistant to ceftriaxone and Zosyn. She also has a blood culture positive for Haemophilus influenza. Zosyn discontinued and patient started on Invanz. Repeat blood work 03/17: Repeat blood work is pending this morning. Patient continues to deteriorat e on physical examination. She is mottling to the lower extremities. Patient does not wish to go into hospice care and granddaughter are luis is at this point prepared for hospice and making her comfortable. Hospice is following closely with you for patient to make change and decision. Patient continues to be followed by consultants. No changes in her medications at this point until she is agreeable to hospice care. 03/18: Patient continued to decline, not eating, drinking taking oral medications, decreased urine output, patient has decreased responsiveness, continued mottling of the extremities. All aggressive treatment will be discontinued at this point. Granddaughter is at bedside. Anticipate the patient will pass in the next 24 hours. REVIEW OF SYSTEMS Constitutional: No fever, no chills, no night sweats. No weight change. Positive fatigue and tiredness with lethargy with daytime sleeping. EENT: No headache. No nasal drainage or congestion. No epistaxis. No sore throat. Lungs: Mild shortness of breath cough wheezes. Cardiovascular: Positive dyspnea with PND orthopnea palpitations and mild lightheadedness and A. fib with RVR with CHF. Abdominal: Positive abdominal distention with slight discomfort . : Positive indwelling catheter with irritation and discomfort. Musculoskeletal: No myalgias. Noted muscle weakness, no gait dysfunction, no frequent falls. No back pain. No neck pain. Integumentary: Positive wound on the buttocks area bilaterally worse on the left than the right side will use regular dressing and special mattress. Neurologic: No aphasia. No facial droop. Noted confusion and change in mentation. No head injury. No headache. No paralysis. No paresthesia. Psychiatric: No depression. No anxiety. No mood swings. Endocrine: No abnormal blood sugars. No weight change. No excessive sweating or thirst. PHYSICAL EXAMINATION Gen: This is elderly 86-year-old female lethargic, minimal response.. HEENT: Head is atraumatic, normocephalic. Pupils equal, round. Sclerae is anicteric. NECK: No JVD. LUNGS: Decrease breath some other acute fine rhonchi positive crackles in the bases with decreased breath sounds in the right side fci through. HEART: Irregular rhythm and rate S1-S2 positive S3 positive systolic murmur in the apex. ABDOMEN: Soft positive bowel sounds positive transcutaneous catheter in the right side biliary catheter. EXTREMITIES: Right leg had a small ulcerated area one time 1 cm only stage II with slight decrease pulse in the dorsalis pedis bilaterally with trace edema worse on the right than the left side Back: She had decubitus ulcer on the left side measure 3 time 3 inches stage III, right side had curve with half horseshoe shape the middle is more superficial but the edges are deeper with the area almost 53 inches. NEUROLOGICAL: Patient is lethargic. ASSESSMENT AND PLAN 1. Acute hypoxic respiratory failure secondary to A. fib with cardiomyopathy, pleural effusions. Continue oxygen 2. Persistent A. fib with RVR. 3. Bilateral pneumonia, most likely Haemophilus influenza with bacteremia. 4. Right-sided pleural effusion. 5. Sepsis and E. coli ESBL UTI. 6. Elevated troponin , acute coronary syndrome ruled out by cardiology. 7. Severe decubitus ulcer, stage IV sacral pressure ulcer. 8 severe ascending cholangitis with gallstone post transcutaneous biliary tube 9 cardiopathy: Most likely ischemic 10. Acute kidney injury and recent end-stage renal disease requiring hemodialysis at [place] for almost 3 weeks. 11. Diabetes mellitus type 2. 12. Hypothyroidism. 13. Hyperlipidemia. Maintain patient on comfort care, hospice to reassess. DISCHARGE PLAN TBD Impression and plan of care have been directed as dictated by the signing physician. Yanique Casanova nurse practitioner acting as scribe for signing physician. Objective - Vital Signs Vital signs: Vital Signs Temp 97.5 F L 03/18/22 05:21 Pulse 118 H 03/18/22 05:21 Resp 18 03/18/22 05:21 BP 115/62 03/18/22 05:21 Pulse Ox 97 03/18/22 05:21 Intake & Output 03/17/22 03/18/22 03/18/22 18:59 06:59 18:59 Intake Total 25 Output Total 150 75 0 Balance -125 -75 0 Weight 88.5 kg Intake: Oral 25 Output: Drainage 0 0 0 Right Abdomen 0 0 0 Urine 150 75 Other: Voiding Method Indwelling Catheter Indwelling Catheter - Labs CBC & Chem 7: 05/02/22 08:58 03/17/22 14:45 Labs: Abnormal Lab Results - Last 24 Hours (Table) 03/17/22 03/17/22 03/17/22 Range/Units 11:25 14:45 16:27 Sodium 133 L (137-145) mmol/L Carbon Dioxide 20 L (22-30) mmol/L BUN 65 H (7-17) mg/dL Creatinine 2.18 H (0.52-1.04) mg/dL Glucose 128 H (74-99) mg/dL POC Glucose (mg/dL) 136 H 140 H (75-99) mg/dL Calcium 6.6 L (8.4-10.2) mg/dL 03/17/22 03/18/22 Range/Units 20:10 06:20 Sodium (137-145) mmol/L Carbon Dioxide (22-30) mmol/L BUN (7-17) mg/dL Creatinine (0.52-1.04) mg/dL Glucose (74-99) mg/dL POC Glucose (mg/dL) 147 H 155 H (75-99) mg/dL Calcium (8.4-10.2) mg/dL Microbiology - Last 24 Hours (Table) 03/12/22 20:03 Blood Culture Gram Stain - Final Blood Blood Culture - Final Haemophilus influenzae
[2022-03-18] MEDS: INSULIN ASPART (NovoLOG) 100 UNIT/ML VIAL SQ SCH (10:02)
[2022-03-18 10:27] LABS: Potassium 4.7 mmol/L (3.5-5.1)
[2022-03-18] MEDS: COLLAGENASE 250 UNIT/GM OINTMENT 30 GM TUBE TOPICAL SCH (11:15)
[2022-03-18 22:11] VITALS: BP 52/31; PULSE 108; RESP 17; TEMP 97.6
== END 2022-03-19 04:20 | disposition expired | DRG 871 ==
LOC: EC 16:25 → 3SCARD 20:55 → 5NMEDONC 03-18 23:12
PROVIDERS: ADMIT Internal Medicine Geriatric Medicine; ATTEND Internal Medicine Geriatric Medicine
DX: A41.3 Sepsis due to Hemophilus influenzae (principal); I21.A1 Myocardial infarction type 2; L89.154 Pressure ulcer of sacral region, stage 4; L89.323 Pressure ulcer of left buttock, stage 3; N18.6 End stage renal disease; J14 Pneumonia due to Hemophilus influenzae; J96.01 Acute respiratory failure with hypoxia; N17.0 Acute kidney failure with tubular necrosis; J90 Pleural effusion, not elsewhere classified; E87.2 Acidosis; I50.32 Chronic diastolic (congestive) heart failure; I13.2 Hypertensive heart and chronic kidney disease with heart failure and with stage 5 chronic kidney disease, or end stage renal disease; I48.11 Longstanding persistent atrial fibrillation; I48.92 Unspecified atrial flutter; K80.21 Calculus of gallbladder without cholecystitis with obstruction; K83.09 Other cholangitis; L97.319 Non-pressure chronic ulcer of right ankle with unspecified severity; N39.0 Urinary tract infection, site not specified; Z16.12 Extended spectrum beta lactamase (ESBL) resistance; Z16.19 Resistance to other specified beta lactam antibiotics; Z66 Do not resuscitate; Z51.5 Encounter for palliative care; B96.20 Unspecified Escherichia coli [E. coli] as the cause of diseases classified elsewhere; D64.9 Anemia, unspecified; E03.9 Hypothyroidism, unspecified; E11.22 Type 2 diabetes mellitus with diabetic chronic kidney disease; E11.51 Type 2 diabetes mellitus with diabetic peripheral angiopathy without gangrene; E78.5 Hyperlipidemia, unspecified; F03.90 Unspecified dementia, unspecified severity, without behavioral disturbance, psychotic disturbance, mood disturbance, and anxiety; G47.33 Obstructive sleep apnea (adult) (pediatric); H91.90 Unspecified hearing loss, unspecified ear; I08.1 Rheumatic disorders of both mitral and tricuspid valves; I25.5 Ischemic cardiomyopathy; I27.20 Pulmonary hypertension, unspecified; L89.312 Pressure ulcer of right buttock, stage 2; T50.8X5A Adverse effect of diagnostic agents, initial encounter; Y95 Nosocomial condition; Z79.01 Long term (current) use of anticoagulants; Z79.890 Hormone replacement therapy; Z79.899 Other long term (current) drug therapy; Z80.0 Family history of malignant neoplasm of digestive organs; Z87.891 Personal history of nicotine dependence; Z99.2 Dependence on renal dialysis
CPT/HCPCS: 36415; 71045; 71046; 71275; 72220; 76770; 80048; 80053; 80162; 81001; 82728; 83540; 83550; 83605; 83735; 83880; 84145; 84443; 84484; 85025; 85027; 85379; 85610; 85652; 85730; 86140; 87040; 87077; 87086; 87186; 93005; 93308; 94760; 96365; 96366; 96375; 99291